=== PATIENT | female | born 1985 | race Caucasian/White ===

== ENCOUNTER 2016-08-30 16:07 | Emergency (ER) | payer MEDICARE, OTHER ==
[~2016-08-30] VITALS: Ht 162.6 cm; Wt 114.0 kg
[~2016-08-30 16:07] MED LIST: BENT20TA PO; CETI10 PO; DIVA500T PO; LAMO100T PO; LEVO50TA4 PO; MELO-1 PO; NAPR500 PO; RISP2TAB2 PO; VENTAER INH
[2016-08-30 16:10] VITALS: BP 118/76; PULSE 91; RESP 16; TEMP 99.6; O2SAT 97
[2016-08-30] MEDS ORDERED: CEPH500T PO (16:27)
--- NOTE | 2016-08-30 16:31 | PD ---
HPI Chief Complaint: Lump, Cyst, Hernia Time Seen by Provider: 16:31 Travel History International Travel<30 days: No Contact w/Intl Traveler<30days: No Traveled to known affect area: No History of Present Illness HPI Patient is a 31-year-old female presenting with left axillary pain and swelling. Present for one week. Worse over the last day. No discharge. No fevers. No other lesions, lymphadenopathy, or nausea or vomiting. No history of MRSA. Patient has a history of MR and the mother who is present states that she shaved her armpits few days before this began. PFSH Past Medical History Hx Anticoagulant Therapy: No Autoimmune Disease: No Anxiety: Yes Depression: No Heart Rhythm Problems: No Cancer: No Cardiovascular Problems: No High Cholesterol: No Chemotherapy: No Cerebrovascular Accident: No Developmental Delay: Yes Diabetes: No Diminished Hearing: No Endocrine: No Genitourinary: No Hypertension: No Immune Disorder: No Implanted Vascular Access Dvce: No Kidney Stones: No Musculoskeletal: No Neurologic: Yes Psychiatric: Yes Reproductive: No Respiratory: No Immunizations Current: No (uto) Radiation Therapy: No Renal Failure: No Seizures: Yes Sickle Cell Disease: No Sleep Apnea: No Thyroid Disease: Yes Tetanus Vaccination: < 5 Years ?: Not LMP: CURRENTLY ON Past Surgical History AICD: No Insulin Pump: No Joint Replacement: No Pacemaker: No Other Surgery: No (see ed history and physical) Social History Alcohol Use: No Tobacco Use: No Substance Use: No Allergies-Medications (Allergen,Severity, Reaction): Coded Allergies: Sulfa (Verified Allergy, Mild, HIVES, 08/30/16) Reported Meds & Prescriptions Reported Meds & Active Scripts Active Cephalexin 500 Mg Tab 500 Mg PO Q6H Naprosyn (Naproxen) 500 Mg Tab 500 Mg PO BID PRN Ventolin Hfa 18 GM Inh (Albuterol Sulfate) 90 Mcg/Act Aer 2 Puff INH Q4-6H PRN Bentyl (Dicyclomine HCl) 20 Mg Tab 20 Mg PO Q8HR PRN Reported Meloxicam 15 Mg Tab 15 Mg PO DAILY Lamotrigine 100 Mg Tab 100 Mg PO DAILY Cetirizine (Cetirizine HCl) 10 Mg Tab 10 Mg PO DAILY Divalproex DR (Divalproex Sodium) 500 Mg Tabdr 750 Mg PO TID Levothyroxine (Levothyroxine Sodium) 50 Mcg Tab 50 Mcg PO DAILY Risperidone 2 Mg Tab 2 Mg PO BID Review of Systems General / Constitutional: No: Fever Gastrointestinal: No: Nausea, Vomiting Skin: Positive Other (see the history of present illness) Hematologic/Lymphatic: No: Lymph Node Enlargement Physical Exam Narrative GENERAL: Well-developed and well-nourished adult female in no acute distress. SKIN: 1.5 cm area of erythema and mild induration that is subcentimeter the left axilla. No pointing, drainage, fluctuance. No streaking. Warm and dry. Good turgor without tenting. HEAD: Normocephalic and atraumatic. EYES: PERRL bilaterally, 5mm. EOMI bilaterally. No injection or icterus present. No proptosis. Lids without edema or erythema. NECK: Supple, no midline tenderness, crepitus or step-offs. Trachea midline, no JVD. CARDIOVASCULAR: Regular rate and rhythm without murmurs, rubs, clicks or gallops. RESPIRATORY: Clear to auscultation bilaterally with symmetrical rise and fall, no distress or use of accessory muscles. LYMPH: Negative bilateral axillary, supraclavicular, cervical and facial lymphadenopathy. MUSCULOSKELETAL: No gait disturbances. Patient freely moving all four extremities spontaneously. Extremities without clubbing, cyanosis, or edema. No obvious deformities. NEUROLOGIC: CN II-XII grossly intact. Awake and alert. Motor grossly within normal limits. Normal speech. PSYCHIATRIC: Appropriate mood and affect; insight and judgment normal. Data Data Last Documented VS Vital Signs Date Time Temp Pulse Resp B/P Pulse Ox O2 Delivery O2 Flow Rate FiO2 08/30/16 16:10 99.6 91 16 118/76 97 MDM Medical Decision Making Medical Screen Exam Complete: Yes Emergency Medical Condition: Yes Differential Diagnosis Folliculitis versus cellulitis versus abscess Narrative Course Patient is a 31-year-old female presenting with history and physical suggestive of a very minimal folliculitis. She is afebrile and nontoxic-appearing. As this is been worsening by history and is tender to palpation prescribe Keflex for this.See discharge paperwork for further instructions. The plan was discussed with the patient who acknowledged their understanding and agreement. Reinforced the follow-up with primary care is critically important. Patient instructed on emergent conditions that should prompt return to ED. Diagnosis Primary Impression: Folliculitis Patient Instructions: Folliculitis (ED), General Instructions Additional Instructions: Keep area clean, dry, and covered with dressing/bandage Apply warm compresses daily to help with drainage Take Tylenol or ibuprofen for pain Take medications as directed Avoid shaving until lesion completely resolved, then use new blade only Follow-up with PCP in 2 days Return to the ED for any acute worsening of symptoms including worsening swelling, spreading redness, fever, chills, nausea and vomiting Med/Other Pt SpecificInfo: Prescription(s) given Scripts Cephalexin 500 Mg Pif302 Mg PO Q6H #40 TAB Prov:Cali Wagner MD 08/30/16 Disposition: 01 DISCHARGE HOME Condition: Stable Deejay Garcia III Aug 30, 2016 16:31
== END 2016-08-30 16:52 | disposition home or self-care (01) ==
LOC: PHEFT 16:07
DX: L73.9 Follicular disorder, unspecified (principal); R22.32 Localized swelling, mass and lump, left upper limb; E07.9 Disorder of thyroid, unspecified; Z86.59 Personal history of other mental and behavioral disorders; Z86.69 Personal history of other diseases of the nervous system and sense organs
CPT/HCPCS: 99283

== ENCOUNTER 2016-11-30 19:28 | Emergency (ER) | payer MEDICARE, OTHER ==
[~2016-11-30 19:28] MED LIST changes: +CEPH500T PO
[2016-11-30 19:45] VITALS: BP 148/82; PULSE 82; RESP 16; TEMP 98.4; O2SAT 97
--- NOTE | 2016-11-30 19:52 | PD ---
HPI Chief Complaint: pelvic pain Time Seen by Provider: 19:44 Travel History International Travel<30 days: No Contact w/Intl Traveler<30days: No History of Present Illness HPI The patient is a 31 year old female who presents to the [facility] emergency department with a history of reportedly having pain in her "private area" that the patient is unable to unfortunately specify how long ago it began. The patient has a history of developmental delay, mental retardation with a reported understanding of the fourth grade level. The patient is brought in by ambulance services. According to ambulance services, the patient saw a commercial stating that she could call 411 for pain which prompted her call to receive help in the emergency department. The patient on arrival is unaccompanied by her mother. The patient reports that her mother is Rodrick. The patient reports that she has problems with bleeding from her "private area" . She reports it happens frequently. She reports that she also has pain frequently in the area. She denies being sexually active. The patient does report having a history of weight gain after taking a white pill which seemed to make the pain worse. The patient denies having any known recent fevers, cough, congestion, neck pain, chest pain, shortness of breath, vomiting, diarrhea, urinary symptoms, or neurologic symptoms. LMP: She is unable to state when her last menstrual cycle began PFSH Past Medical History Narrative Medical The patient's past medical history is significant for anxiety disorder, developmental delay, history of seizure disorder, hypothyroid disorder, prior history of pneumonia, history of intermittent explosive disorder and psychosis. The patient has been admitted on multiple occasions to the psychiatric service. Hx Anticoagulant Therapy: No Autoimmune Disease: No Anxiety: Yes Depression: No Heart Rhythm Problems: No Cancer: No Cardiovascular Problems: No High Cholesterol: No Chemotherapy: No Cerebrovascular Accident: No Developmental Delay: Yes Diabetes: No Diminished Hearing: No Endocrine: No Genitourinary: No Hypertension: No Immune Disorder: No Implanted Vascular Access Dvce: No Kidney Stones: No Musculoskeletal: No Neurologic: Yes Psychiatric: Yes Reproductive: No Respiratory: No Immunizations Current: No (uto) Radiation Therapy: No Renal Failure: No Seizures: Yes Sickle Cell Disease: No Sleep Apnea: No Thyroid Disease: Yes Past Surgical History Narrative Surgical The patient's past surgical history is reportedly none. AICD: No Insulin Pump: No Joint Replacement: No Pacemaker: No Other Surgery: No (see ed history and physical) Social History Alcohol Use: No Tobacco Use: No Substance Use: No Allergies-Medications (Allergen,Severity, Reaction): Coded Allergies: Sulfa (Verified Allergy, Mild, HIVES, 11/30/16) Reported Meds & Prescriptions Reported Meds & Active Scripts Active Cephalexin 500 Mg Tab 500 Mg PO Q6H Naprosyn (Naproxen) 500 Mg Tab 500 Mg PO BID PRN Ventolin Hfa 18 GM Inh (Albuterol Sulfate) 90 Mcg/Act Aer 2 Puff INH Q4-6H PRN Bentyl (Dicyclomine HCl) 20 Mg Tab 20 Mg PO Q8HR PRN Reported Meloxicam 15 Mg Tab 15 Mg PO DAILY Lamotrigine 100 Mg Tab 100 Mg PO DAILY Cetirizine (Cetirizine HCl) 10 Mg Tab 10 Mg PO DAILY Divalproex DR (Divalproex Sodium) 500 Mg Tabdr 750 Mg PO TID Levothyroxine (Levothyroxine Sodium) 50 Mcg Tab 50 Mcg PO DAILY Risperidone 2 Mg Tab 2 Mg PO BID Review of Systems Except as stated in HPI: all other systems reviewed are Neg General / Constitutional: No: Fever Eyes: No: Visual changes HENT: No: Headaches Cardiovascular: No: Chest Pain or Discomfort Respiratory: No: Shortness of Breath Gastrointestinal: Positive: Abdominal Pain, No: Nausea, Vomiting, Diarrhea, Changes in Bowel Habits, Indigestion, Loss of Appetite Genitourinary: Positive: Pelvic Pain, Vaginal Bleeding, No: Dysuria Musculoskeletal: No: Pain Skin: No Rash Neurologic: No: Weakness Psychiatric: No: Depression Endocrine: No: Polydipsia Hematologic/Lymphatic: No: Easy Bruising Physical Exam Narrative General: The patient is a well-developed well-nourished female in no acute distress. Head and Neck exam: Head is normocephalic atraumatic. Eyes: EOMI, pupils are equal round and reactive to light. Nose: Midline septum with pink mucous membranes Mouth: Dentition unremarkable. Moist mucus membranes. Posterior oropharynx is not erythematous. No tonsillar hypertrophy. Uvula midline. Airway patent. Neck: No palpable lymphadenopathy. No nuchal rigidity. No thyromegaly. Cardiovascular: Regular rate and rhythm without murmurs, gallops, or rubs. Lungs: Clear to auscultation bilaterally. No wheezes, rhonchi, or rales. Abdomen: Soft, without tenderness to palpation in all 4 quadrants of the abdomen. No guarding, rebound, or rigidity. No tenderness on palpation of McBurney's point. Normal bowel sounds are audible. Negative [place] sign. Extremities: No clubbing or cyanosis. The patient has trace pedal edema bilateral lower extremities. No calf tenderness on palpation. Back: No spinous process tenderness to palpation. No costovertebral angle tenderness to palpation. Neurologic Exam: Cranial nerves 2-12 were intact on exam. Strength is 5/5 in all 4 extremities. No sensory deficits noted. Skin Exam: No rash noted. Intact skin that is warm and dry. GENITOURINARY: Vaginal vault was very small although blood was noted to be pulling at the vaginal introitus. The patient had difficulty relaxing for the examination and the speculum would not pass through this small opening for full visualization of her cervix. No vaginal lesions or other abnormalities are identified. Data Data Last Documented VS Vital Signs Date Time Temp Pulse Resp B/P Pulse Ox O2 Delivery O2 Flow Rate FiO2 11/30/16 20:04 82 16 97 Room Air 11/30/16 19:45 98.4 148/82 Orders Complete Blood Count With Diff (11/30/16 19:45) Comprehensive Metabolic Panel (11/30/16 19:45) Urinalysis - C+S If Indicated (11/30/16 19:45) Valproic Acid (Depakene) (11/30/16 19:45) Iv Access Insert/Monitor (11/30/16 19:45) Ecg Monitoring (11/30/16 19:45) Oximetry (11/30/16 19:45) Ed Urine Pregnancytest Poc (11/30/16 19:45) Gc And Chlamydia Pcr (11/30/16 19:45) Wet Prep Profile (11/30/16 19:45) Thyroid Stimulating Hormone (11/30/16 19:52) Us Pelvis Comp Machine Burrer/Non-Preg (11/30/16 20:07) Labs Laboratory Tests Test 11/30/16 11/30/16 19:55 20:10 White Blood Count 8.7 TH/MM3 Red Blood Count 4.12 MIL/MM3 Hemoglobin 11.5 GM/DL Hematocrit 35.6 % Mean Corpuscular Volume 86.5 FL Mean Corpuscular Hemoglobin 27.9 PG Mean Corpuscular Hemoglobin 32.3 % Concent Red Cell Distribution Width 16.3 % Platelet Count 258 TH/MM3 Mean Platelet Volume 7.3 FL Neutrophils (%) (Auto) 68.2 % Lymphocytes (%) (Auto) 17.7 % Monocytes (%) (Auto) 12.5 % Eosinophils (%) (Auto) 1.3 % Basophils (%) (Auto) 0.3 % Neutrophils # (Auto) 5.9 TH/MM3 Lymphocytes # (Auto) 1.5 TH/MM3 Monocytes # (Auto) 1.1 TH/MM3 Eosinophils # (Auto) 0.1 TH/MM3 Basophils # (Auto) 0.0 TH/MM3 CBC Comment DIFF FINAL Differential Comment Sodium Level 138 MEQ/L Potassium Level 4.2 MEQ/L Chloride Level 100 MEQ/L Carbon Dioxide Level 27.9 MEQ/L Anion Gap 10 MEQ/L Blood Urea Nitrogen 7 MG/DL Creatinine 0.76 MG/DL Estimat Glomerular Filtration 88 ML/MIN Rate Random Glucose 109 MG/DL Calcium Level 9.1 MG/DL Total Bilirubin 0.1 MG/DL Aspartate Amino Transf 18 U/L (AST/SGOT) Alanine Aminotransferase 26 U/L (ALT/SGPT) Alkaline Phosphatase 82 U/L Total Protein 7.6 GM/DL Albumin 3.6 GM/DL Thyroid Stimulating Hormone 0.584 uIU/ML 3rd Gen Valproic Acid (Depakene) Level 63 MCG/ML Urine Color LIGHT-YELLOW Urine Turbidity CLEAR Urine pH 7.0 Urine Specific [place] 1.003 Urine Protein NEG mg/dL Urine Glucose (UA) NEG mg/dL Urine Ketones NEG mg/dL Urine Occult Blood NEG Urine Nitrite NEG Urine Bilirubin NEG Urine Urobilinogen LESS THAN 2.0 MG/DL Urine Leukocyte Esterase NEG Urine WBC LESS THAN 1 /hpf Microscopic Urinalysis Comment CULT NOT INDICATED MDM Medical Decision Making Medical Screen Exam Complete: Yes Emergency Medical Condition: Yes Medical Record Reviewed: Yes Interpretation(s) Last Impressions Pelvis Ultrasound 11/30/162006 Signed Impressions: Service Date/Time: Wednesday, November 30, 2016 23:32 - CONCLUSION: 1. Unremarkable ultrasound examination of the pelvis. Naif Lozano MD Differential Diagnosis Ovarian cyst, versus fibroids, versus anemia, versus dysfunctional uterine bleeding, versus endocrine disorder such as hypothyroid versus hyperthyroidism Narrative Course During the course of the patients emergency department visit, the patients history, examination, and differential diagnosis were reviewed with the patient. The patient had IV access obtained and blood work sent for analysis. The patient was placed on a monitoring coordinator with oximetry and blood pressure monitoring. The patient was initially provided Toradol 15 mg IV times one. The patients laboratory studies were reviewed and remarkable for a white count of 8.7, hemoglobin 11.5, platelets 258 with 12.5 monocytes, CMP is remarkable for glucose of 109, total bilirubin 0.1, TSH 0.584, urinalysis is unremarkable, valproic acid level is 63. Radiology studies were reviewed and remarkable for an ultrasound of the pelvis that shows no acute abnormality. The patient is instructed regarding the importance of following up with a psychiatric assistant. She is given the name of the psychiatric assistant station supervisor, Dr. Valiente. The patient is resting comfortably and feels better, is alert and in no distress. The patients results and examination findings were discussed with the patient. The repeat examination is unremarkable and benign. The history, exam, diagnostic testing, and current condition do not suggest any significant pathology to warrant further testing, continued ED treatment, admission, or surgical evaluation at this point. The vital signs have been stable. The patient does not have uncontrollable pain, intractable vomiting, or other significant symptoms. The patient's condition is stable and appropriate for discharge. The patient will pursue further outpatient evaluation with a primary care physician or other designated or consulting physician as indicated in the discharge instructions. The patient expressed understanding and was agreeable with this plan. Diagnosis Primary Impression: Dysmenorrhea Referrals: Daisy Valiente MD 1 week Patient Instructions: Dysmenorrhea (ED), General Instructions Med/Other Pt SpecificInfo: No Change to Meds Disposition: 01 DISCHARGE HOME Condition: Stable Vani Lemon MD November 30, 2016 19:52
[2016-11-30 20:04] VITALS: PULSE 82; RESP 16; O2SAT 97
[2016-11-30 20:33] LABS: BLOOD, URINE NEG (NEG); COMMENT (UR) CULT NOT INDICATED; CULTURE IF INDICATED CULT NOT INDICATED; GLUCOSE,URINE NEG (NEG); KETONE, URINE NEG (NEG); NITRITE,URINE NEG (NEG); URINE COLOR LIGHT-YELLOW (YELLW/STRAW)
[2016-11-30 20:43] LABS: AUTOMATED NEUTROPHIL # 5.9 TH/MM3 (1.8-7.7); BASOPHIL % 0.3 % (0.0-2.0); EOSINOPHIL # 0.1 TH/MM3 (0-0.4); EOSINOPHIL % 1.3 % (0.0-4.0); HEMATOCRIT 35.6 % (35.0-46.0); HEMO FLAGS DIFF FINAL; LYMPH % 17.7 % (9.0-44.0); LYMPHOCYTE # 1.5 TH/MM3 (1.0-4.8); MEAN CELL VOLUME 86.5 FL (80.0-100.0); MEAN CORPUSCULAR HEMOGLOBIN 27.9 PG (27.0-34.0); MEAN CORPUSCULAR HGB CONC 32.3 % (32.0-36.0); MONO % 12.5 % (0.0-8.0); NEUT % 68.2 % (16.0-70.0); PLATELET COUNT 258 TH/MM3 (150-450); RED BLOOD COUNT 4.12 MIL/MM3 (4.00-5.30); RED CELL DISTRIBUTION WIDTH 16.3 % (11.6-17.2); WHITE BLOOD COUNT 8.7 TH/MM3 (4.0-11.0)
[2016-11-30 21:11] LABS: ALKALINE PHOSPHATASE 82 U/L (45-117); ALT (GPT) 26 U/L (10-53); ANION GAP 10 MEQ/L (5-15); AST (GOT) 18 U/L (15-37); BICARBONATE 27.9 MEQ/L (21.0-32.0); BLOOD UREA NITROGEN 7 MG/DL (7-18); CHLORIDE 100 MEQ/L (98-107); GLOMERULAR FILTRATION RATE 88 ML/MIN (>89); POTASSIUM 4.2 MEQ/L (3.5-5.1); SODIUM (NA) 138 MEQ/L (136-145); TOTAL BILIRUBIN ADULT 0.1 MG/DL (0.2-1.0)
--- NOTE | 2016-12-01 00:43 | RADRPT ---
EXAM DATE/TIME: 11/30/2016 23:32 [facility] COMPARISON: No previous studies available for comparison. INDICATIONS : Pelvic pain. MEDICAL HISTORY : Thyroid disease. Seizures. Head trauma. Anxiety. Mental retardation. SURGICAL HISTORY : None. ENCOUNTER: Initial ACUITY: 1 day PAIN SCORE: 10 LOCATION: Bilateral pelvis MEASUREMENTS: UTERUS: 8.7 x 4.9 x 3.3 cm ENDOMETRIAL STRIPE: 7 mm RIGHT OVARY: 3.4 x 2.9 x 1.7 cm LEFT OVARY: 3.6 x 3.2 x 2.1 cm FINDINGS: UTERUS: The myometrium has homogeneous echotexture without mass. RIGHT OVARY: Ovary contains no mass or significant cystic lesion. LEFT OVARY: Ovary contains no mass or significant cystic lesion. MISCELLANEOUS: No free fluid. CONCLUSION: 1. Unremarkable ultrasound examination of the pelvis. Naif Lozano MD on December 01, 2016 at 0:41 Board Certified Radiologist. This report was verified electronically.
== END 2016-12-01 02:37 | disposition home or self-care (01) ==
LOC: NEPC 19:28
DX: F79 Unspecified intellectual disabilities (principal); N94.6 Dysmenorrhea, unspecified
CPT/HCPCS: 76856; 80053; 80164; 81001; 84443; 85025

== ENCOUNTER 2017-01-03 10:23 | Emergency (ER) | payer MEDICARE, OTHER ==
[2017-01-03 10:24] VITALS: BP 156/94; PULSE 84; RESP 15; TEMP 98.2; O2SAT 98
--- NOTE | 2017-01-03 10:57 | PD ---
HPI Chief Complaint: Medical Clearance Time Seen by Provider: 10:44 Travel History International Travel<30 days: No Contact w/Intl Traveler<30days: No Traveled to known affect area: No History of Present Illness HPI 31-year-old female came to the emergency room with history of anger outburst after having a verbal argument with her mother. Patient was brought in by the police but was not a Lewis act. Currently she appears to be very calm and flipping through the knitting magazine says she knits. Patient has history of MR and anger outbursts disorder. Her response is in a childlike manner which could be due to her MR. Looking at the past psych history and physical this seems to be her baseline. Vital signs are otherwise stable. She does not appear to be in any distress. [facility] Past Medical History Narrative Medical List of her past medical, surgical, social and family history reviewed from the nursing note. Hx Anticoagulant Therapy: No Arthritis: Yes Autoimmune Disease: No Anxiety: Yes Depression: No Heart Rhythm Problems: No Cancer: No Cardiovascular Problems: No High Cholesterol: No Chemotherapy: No Cerebrovascular Accident: No Developmental Delay: Yes Diabetes: No Diminished Hearing: No Endocrine: No Genitourinary: No Hypertension: No Immune Disorder: No Implanted Vascular Access Dvce: No Kidney Stones: No Musculoskeletal: No Neurologic: Yes Psychiatric: Yes Reproductive: No Respiratory: No Immunizations Current: No (uto) Radiation Therapy: No Renal Failure: No Seizures: Yes Sickle Cell Disease: No Sleep Apnea: No Thyroid Disease: Yes Tetanus Vaccination: Unknown ?: Unknown Past Surgical History AICD: No Insulin Pump: No Joint Replacement: No Pacemaker: No Other Surgery: No (see ed history and physical) Social History Alcohol Use: No Tobacco Use: No Substance Use: No Allergies-Medications (Allergen,Severity, Reaction): Coded Allergies: Sulfa (Verified Allergy, Mild, HIVES, 11/30/16) Comments List of her allergies reviewed from the nursing note. Reported Meds & Prescriptions Reported Meds & Active Scripts Active Cephalexin 500 Mg Tab 500 Mg PO Q6H Naprosyn (Naproxen) 500 Mg Tab 500 Mg PO BID PRN Ventolin Hfa 18 GM Inh (Albuterol Sulfate) 90 Mcg/Act Aer 2 Puff INH Q4-6H PRN Bentyl (Dicyclomine HCl) 20 Mg Tab 20 Mg PO Q8HR PRN Reported Meloxicam 15 Mg Tab 15 Mg PO DAILY Lamotrigine 100 Mg Tab 100 Mg PO DAILY Cetirizine (Cetirizine HCl) 10 Mg Tab 10 Mg PO DAILY Divalproex DR (Divalproex Sodium) 500 Mg Tabdr 750 Mg PO TID Levothyroxine (Levothyroxine Sodium) 50 Mcg Tab 50 Mcg PO DAILY Risperidone 2 Mg Tab 2 Mg PO BID Narrative Medication List of her home medications reviewed from the nursing note. Review of Systems Except as stated in HPI: all other systems reviewed are Neg Physical Exam Narrative GENERAL: Awake, alert, obese, no obvious distress, MR SKIN: Focused skin assessment warm/dry. HEAD: Atraumatic. Normocephalic. EYES: Pupils equal and round. No scleral icterus. No injection or drainage. ENT: No nasal bleeding or discharge. Mucous membranes pink and moist. NECK: Trachea midline. No JVD. CARDIOVASCULAR: Regular rate and rhythm. No murmur appreciated. RESPIRATORY: No accessory muscle use. Clear to auscultation. Breath sounds equal bilaterally. GASTROINTESTINAL: Abdomen soft, non-tender, nondistended. Hepatic and splenic margins not palpable. MUSCULOSKELETAL: No obvious deformities. No clubbing. No cyanosis. No edema. NEUROLOGICAL: Awake and alert. No obvious cranial nerve deficits. Motor grossly within normal limits. Normal speech. MR PSYCHIATRIC: Appropriate mood and affect; poor insight and judgment due to her MR Data Data Last Documented VS Vital Signs Date Time Temp Pulse Resp B/P Pulse Ox O2 Delivery O2 Flow Rate FiO2 01/03/17 14:30 76 14 99 01/03/17 10:24 98.2 156/94 [facility] Medical Decision Making Medical Screen Exam Complete: Yes Emergency Medical Condition: Yes Medical Record Reviewed: Yes Differential Diagnosis Anger outburst, behavioral disorder Narrative Course 11:32 AM patient does not appear to be in any distress. I do not want to do any blood tests at this point. I've asked the nurse to contact her mother and try to see if she can come and pick her up. I'm comfortable discharging her. Procedures EKG Prior to Arrival: No Diagnosis Primary Impression: Outbursts of anger Additional Impression: Mental retardation Referrals: Primary Care Physician Additional Instructions: Please return to the ER if the condition worsens or any other new concerns. Otherwise follow-up with your primary care. Take your medication as he is supposed to. Disposition: 01 DISCHARGE HOME Condition: Stable Halima Valero MD Jan 03, 2017 10:57
== END 2017-01-03 14:30 | disposition home or self-care (01) ==
LOC: NEPC 10:23
DX: R45.4 Irritability and anger (principal); F79 Unspecified intellectual disabilities; F41.9 Anxiety disorder, unspecified
CPT/HCPCS: 99283

== ENCOUNTER 2017-04-26 11:11 | Emergency (ER) | payer OTHER, MEDICAID ==
[~2017-04-26] VITALS: Ht 170.2 cm; Wt 110.0 kg
[2017-04-26 11:13] VITALS: BP 140/93; PULSE 91; RESP 20; TEMP 99.6; O2SAT 95
--- NOTE | 2017-04-26 11:21 | PD ---
Physical Exam Time Seen by Provider: 11:18 Narrative 31-year-old female with history of brain injury and seizures presents with her mother requesting for the patient to be put on psych medications. Mother states she has no threat herself but she has been verbally aggressive towards her. She is also been acting out. The mother is afraid that she is going to leave the home. Patient denies suicidal ideations. Patient seen in triage. Vital signs reviewed. Patient taken to medical bed. Data Data Last Documented VS Vital Signs Date Time Temp Pulse Resp B/P (MAP) Pulse Ox O2 Delivery O2 Flow Rate FiO2 04/26/17 11:13 99.6 91 20 140/93 (109) 95 MDM Supervised Visit with NOBLE: Silvana Valenzuela Apr 26, 2017 11:21
--- NOTE | 2017-04-26 11:39 | PD ---
HPI Chief Complaint: Psychiatric Symptoms Time Seen by Provider: 11:30 Travel History International Travel<30 days: No Contact w/Intl Traveler<30days: No Traveled to known affect area: No History of Present Illness HPI 31-year-old white obese female with a history of brain injury and seizures here with mother with increased agitation. Mother provides history. Patient talks but is unable to answer questions appropriately. Mother states that the patient was previously on Risperdal but was taken off because of excessive menstrual bleeding, rest tenderness, and inappropriate . Last menstrual period was in March. Mother states she has no threat herself but she has been verbally aggressive towards her. Mother states she has had hallucinations. Patient has not complained of fevers, chills, chest pain, shortness of breath, abdominal pain, or muscle pain. Again, it is difficult to elicit history from patient and she apparently is not giving her mother any additional information. Patient denies suicidal ideations. PFSH Past Medical History Hx Anticoagulant Therapy: No Arthritis: Yes Autoimmune Disease: No Anxiety: Yes Depression: No Heart Rhythm Problems: No Cancer: No Cardiovascular Problems: No High Cholesterol: No Chemotherapy: No Cerebrovascular Accident: No Developmental Delay: Yes Diabetes: No Diminished Hearing: No Endocrine: No Genitourinary: No Hypertension: No Immune Disorder: No Implanted Vascular Access Dvce: No Kidney Stones: No Musculoskeletal: No Neurologic: Yes Psychiatric: Yes Reproductive: No Respiratory: No Immunizations Current: No (uto) Radiation Therapy: No Renal Failure: No Seizures: Yes Sickle Cell Disease: No Sleep Apnea: No Thyroid Disease: Yes ?: Unknown LMP: 03-10-17 Past Surgical History AICD: No Insulin Pump: No Joint Replacement: No Pacemaker: No Other Surgery: No (see ed history and physical) Social History Alcohol Use: No Tobacco Use: No Substance Use: No Allergies-Medications (Allergen,Severity, Reaction): Coded Allergies: Sulfa (Sulfonamide Antibiotics) (Unverified Allergy, Mild, HIVES, 03/15/17) Reported Meds & Prescriptions Reported Meds & Active Scripts Active Klonopin (Clonazepam) 1 Mg Tab 1 Mg PO TID Cephalexin 500 Mg Tab 500 Mg PO Q6H Naprosyn (Naproxen) 500 Mg Tab 500 Mg PO BID PRN Ventolin Hfa 18 GM Inh (Albuterol Sulfate) 90 Mcg/Act Aer 2 Puff INH Q4-6H PRN Reported Meloxicam 15 Mg Tab 15 Mg PO DAILY Lamotrigine 100 Mg Tab 100 Mg PO DAILY Cetirizine (Cetirizine HCl) 10 Mg Tab 10 Mg PO DAILY Divalproex DR (Divalproex Sodium) 500 Mg Tabdr 750 Mg PO TID Levothyroxine (Levothyroxine Sodium) 50 Mcg Tab 50 Mcg PO DAILY Risperidone 2 Mg Tab 2 Mg PO BID Review of Systems Except as stated in HPI: all other systems reviewed are Neg (difficult to elicit on patient. rely on mother) Physical Exam Exam Limitations: Poor Historian, Psychotic Narrative GENERAL: Well-nourished obese white female sitting upright on her own SKIN: Focused skin assessment warm/dry. HEAD: Atraumatic. Normocephalic. EYES: No scleral icterus. No injection or drainage. ENT: No nasal bleeding or discharge. NECK: No JVD. CARDIOVASCULAR: Regular rate and rhythm. No murmur appreciated. RESPIRATORY: No accessory muscle use. Clear to auscultation. Breath sounds equal bilaterally. MUSCULOSKELETAL: No obvious deformities. No clubbing. No cyanosis. No edema. NEUROLOGICAL: Awake and alert. No obvious cranial nerve deficits. Motor grossly within normal limits. Normal speech. PSYCHIATRIC: Agitated mood and affect; unable to answer questions directly, tangental and unrelated answers. Data Data Last Documented VS Vital Signs Date Time Temp Pulse Resp B/P (MAP) Pulse Ox O2 Delivery O2 Flow Rate FiO2 04/26/17 14:45 04/26/17 11:13 99.6 91 20 95 Orders Orders Complete Blood Count With Diff (04/26/17 11:37) Comprehensive Metabolic Panel (04/26/17 11:37) Psych Screen (04/26/17 11:37) Labs Laboratory Tests Test 04/26/17 11:45 White Blood Count 6.5 TH/MM3 Red Blood Count 3.96 MIL/MM3 Hemoglobin 12.0 GM/DL Hematocrit 35.9 % Mean Corpuscular Volume 90.7 FL Mean Corpuscular Hemoglobin 30.2 PG Mean Corpuscular Hemoglobin Concent 33.3 % Red Cell Distribution Width 15.1 % Platelet Count 281 TH/MM3 Mean Platelet Volume 7.1 FL Neutrophils (%) (Auto) 58.1 % Lymphocytes (%) (Auto) 28.5 % Monocytes (%) (Auto) 10.6 % Eosinophils (%) (Auto) 2.6 % Basophils (%) (Auto) 0.2 % Neutrophils # (Auto) 3.8 TH/MM3 Lymphocytes # (Auto) 1.9 TH/MM3 Monocytes # (Auto) 0.7 TH/MM3 Eosinophils # (Auto) 0.2 TH/MM3 Basophils # (Auto) 0.0 TH/MM3 CBC Comment DIFF FINAL Differential Comment Blood Urea Nitrogen 12 MG/DL Creatinine 0.74 MG/DL Random Glucose 108 MG/DL Total Protein 7.1 GM/DL Albumin 3.5 GM/DL Calcium Level 8.7 MG/DL Alkaline Phosphatase 74 U/L Aspartate Amino Transf (AST/SGOT) 7 U/L Alanine Aminotransferase (ALT/SGPT) 17 U/L Total Bilirubin 0.1 MG/DL Sodium Level 140 MEQ/L Potassium Level 3.7 MEQ/L Chloride Level 105 MEQ/L Carbon Dioxide Level 26.6 MEQ/L Anion Gap 8 MEQ/L Estimat Glomerular Filtration Rate 90 ML/MIN MDM Medical Decision Making Medical Screen Exam Complete: Yes Emergency Medical Condition: Yes Differential Diagnosis Delirium vs psychotic episode Narrative Course 31-year-old white obese female with a history of brain injury and seizures here with mother with increased agitation. Mother provides history. Mother brought her in to start new medications. Labs and vital signs remained stable. She was evaluated by psych in the ED and discharged to follow up with her PCP. Diagnosis Primary Impression: Intermittent explosive disorder Referrals: Primary Care Physician Psychiatrist Scripts Clonazepam (Klonopin) 1 Mg Tab 1 MG PO TID for Agitation, #90 TAB 0 Refills Prov: Simon Chambers MD 04/26/17 Disposition: 01 DISCHARGE HOME Condition: Serious Jennifer Li Apr 26, 2017 11:39
[2017-04-26 12:05] LABS: AUTOMATED NEUTROPHIL # 3.8 TH/MM3 (1.8-7.7); BASOPHIL % 0.2 % (0.0-2.0); EOSINOPHIL # 0.2 TH/MM3 (0-0.4); EOSINOPHIL % 2.6 % (0.0-4.0); HEMATOCRIT 35.9 % (35.0-46.0); HEMO FLAGS DIFF FINAL; LYMPH % 28.5 % (9.0-44.0); LYMPHOCYTE # 1.9 TH/MM3 (1.0-4.8); MEAN CELL VOLUME 90.7 FL (80.0-100.0); MEAN CORPUSCULAR HEMOGLOBIN 30.2 PG (27.0-34.0); MEAN CORPUSCULAR HGB CONC 33.3 % (32.0-36.0); MONO % 10.6 % (0.0-8.0); NEUT % 58.1 % (16.0-70.0); PLATELET COUNT 281 TH/MM3 (150-450); RED BLOOD COUNT 3.96 MIL/MM3 (4.00-5.30); RED CELL DISTRIBUTION WIDTH 15.1 % (11.6-17.2); WHITE BLOOD COUNT 6.5 TH/MM3 (4.0-11.0)
[2017-04-26 12:31] LABS: ANION GAP 8 MEQ/L (5-15); AST (GOT) 7 U/L (15-37); BICARBONATE 26.6 MEQ/L (21.0-32.0); BLOOD UREA NITROGEN 12 MG/DL (7-18); CHLORIDE 105 MEQ/L (98-107); GLOMERULAR FILTRATION RATE 90 ML/MIN (>89); POTASSIUM 3.7 MEQ/L (3.5-5.1); SODIUM (NA) 140 MEQ/L (136-145)
[2017-04-26 12:34] LABS: ALKALINE PHOSPHATASE 74 U/L (45-117); ALT (GPT) 17 U/L (10-53); TOTAL BILIRUBIN ADULT 0.1 MG/DL (0.2-1.0)
[2017-04-26] MEDS ORDERED: CLON1 PO (13:41)
--- NOTE | 2017-04-26 13:51 | PD ---
Data Data Last Documented VS Vital Signs Date Time Temp Pulse Resp B/P (MAP) Pulse Ox O2 Delivery O2 Flow Rate FiO2 04/26/17 14:45 04/26/17 11:13 99.6 91 20 95 Orders Orders Complete Blood Count With Diff (04/26/17 11:37) Comprehensive Metabolic Panel (04/26/17 11:37) Psych Screen (04/26/17 11:37) Labs Laboratory Tests Test 04/26/17 11:45 White Blood Count 6.5 TH/MM3 Red Blood Count 3.96 MIL/MM3 Hemoglobin 12.0 GM/DL Hematocrit 35.9 % Mean Corpuscular Volume 90.7 FL Mean Corpuscular Hemoglobin 30.2 PG Mean Corpuscular Hemoglobin Concent 33.3 % Red Cell Distribution Width 15.1 % Platelet Count 281 TH/MM3 Mean Platelet Volume 7.1 FL Neutrophils (%) (Auto) 58.1 % Lymphocytes (%) (Auto) 28.5 % Monocytes (%) (Auto) 10.6 % Eosinophils (%) (Auto) 2.6 % Basophils (%) (Auto) 0.2 % Neutrophils # (Auto) 3.8 TH/MM3 Lymphocytes # (Auto) 1.9 TH/MM3 Monocytes # (Auto) 0.7 TH/MM3 Eosinophils # (Auto) 0.2 TH/MM3 Basophils # (Auto) 0.0 TH/MM3 CBC Comment DIFF FINAL Differential Comment Blood Urea Nitrogen 12 MG/DL Creatinine 0.74 MG/DL Random Glucose 108 MG/DL Total Protein 7.1 GM/DL Albumin 3.5 GM/DL Calcium Level 8.7 MG/DL Alkaline Phosphatase 74 U/L Aspartate Amino Transf (AST/SGOT) 7 U/L Alanine Aminotransferase (ALT/SGPT) 17 U/L Total Bilirubin 0.1 MG/DL Sodium Level 140 MEQ/L Potassium Level 3.7 MEQ/L Chloride Level 105 MEQ/L Carbon Dioxide Level 26.6 MEQ/L Anion Gap 8 MEQ/L Estimat Glomerular Filtration Rate 90 ML/MIN [facility] Medical Record Reviewed: Yes Supervised Visit with NOBLE: Yes Narrative Course Please refer to NOBLE note unless otherwise indicated below. CBC & BMP Diagram 04/26/17 11:45 Total Protein 7.1, Albumin 3.5, Calcium Level 8.7, Alkaline Phosphatase 74, Aspartate Amino Transf (AST/SGOT) 7 L, Alanine Aminotransferase (ALT/SGPT) 17, Total Bilirubin 0.1 L Pt awaiting evaluation by Dr Chambers. Diagnosis Primary Impression: Agitation Additional Instruction: You have a choice when it comes to health care, and we are glad that you chose [facility]. Hopefully, we have met your expectations on today's visit. You are welcome to return to [facility] at any time, as we are committed to meeting the health care needs of our community. Med/Other Pt SpecificInfo: No Meds Exist/No RX given Scripts Clonazepam (Klonopin) 1 Mg Tab 1 MG PO TID for Agitation, #90 TAB 0 Refills Prov: Simon Chambers MD 04/26/17 Disposition: 01 DISCHARGE HOME Condition: Stable Aaron Maya MD Apr 26, 2017 13:51
--- NOTE | 2017-04-26 13:57 | PD ---
History of Present Illness Chief Complaint: Psychiatric Symptoms Time Seen by Provider: 13:45 Travel History International Travel<30 Days: No Contact w/Intl Traveler<30days: No Known affected area: No Legal Status Legal Status: Voluntary History of Present Illness: 31-year-old female presents voluntarily with obvious developmental disability and periods of agitation. Patient brought by her mother. Patient recently taken off of Risperdal due to adverse side effects. Patient is a poor historian and talks to this physician about her birthday and this physician's need to provide a gift. Patient is not voicing suicidal or homicidal ideation or psychotic symptoms. However, this physician understands the patient may be intermittently agitated and requires medication management for these episodes. However, inpatient psychiatric hospitalization is not indicated as the patient will not benefit from such hospitalization and needs medication management on an outpatient basis. PFSH Past Medical History Hx Anticoagulant Therapy: No Arthritis: Yes Autoimmune Disease: No Anxiety: Yes Depression: No Heart Rhythm Problems: No Cancer: No Cardiovascular Problems: No High Cholesterol: No Chemotherapy: No Cerebrovascular Accident: No Developmental Delay: Yes Diabetes: No Diminished Hearing: No Endocrine: No Genitourinary: No Hypertension: No Immune Disorder: No Implanted Vascular Access Dvce: No Kidney Stones: No Musculoskeletal: No Neurologic: Yes Psychiatric: Yes Reproductive: No Respiratory: No Immunizations Current: No (uto) Radiation Therapy: No Renal Failure: No Seizures: Yes Sickle Cell Disease: No Sleep Apnea: No Thyroid Disease: Yes ?: Unknown LMP: 8-17 Past Surgical History AICD: No Insulin Pump: No Joint Replacement: No Pacemaker: No Other Surgery: No (see ed history and physical) Psychiatric History Psychiatric History Hx Psychiatric Treatment: Extensive psychiatric tx hx. Per mother, patient is without an outpatient psychiatrist at this time. Per mother, patient has not had any Saphris since February 13. Patient may be controlled with antipsychotic medicines but as discovered with Risperdal, these medicines may have side effects. History of Inpatient Treatment: Yes Guns or firearms in home: No Social History Hx Alcohol Use: No Hx Tobacco Use: No Hx Substance Use: No Substance Use Type: Benzos (Valium,Xanax) Hx of Substance Use Treatment: No Allergies-Medications (Allergen,Severity, Reaction): Coded Allergies: Sulfa (Sulfonamide Antibiotics) (Unverified Allergy, Mild, HIVES, 03/15/17) Reported Meds & Prescriptions Reported Meds & Active Scripts Active Klonopin (Clonazepam) 1 Mg Tab 1 Mg PO TID Cephalexin 500 Mg Tab 500 Mg PO Q6H Naprosyn (Naproxen) 500 Mg Tab 500 Mg PO BID PRN Ventolin Hfa 18 GM Inh (Albuterol Sulfate) 90 Mcg/Act Aer 2 Puff INH Q4-6H PRN Reported Meloxicam 15 Mg Tab 15 Mg PO DAILY Lamotrigine 100 Mg Tab 100 Mg PO DAILY Cetirizine (Cetirizine HCl) 10 Mg Tab 10 Mg PO DAILY Divalproex DR (Divalproex Sodium) 500 Mg Tabdr 750 Mg PO TID Levothyroxine (Levothyroxine Sodium) 50 Mcg Tab 50 Mcg PO DAILY Risperidone 2 Mg Tab 2 Mg PO BID Review of Systems Except as stated in HPI: all other systems reviewed are Neg Exam Alert: Yes [place]: Person Mood: Calm Affect: Other Speech: Clear Eye Contact: Indirect Memory Intact: Immediate Insight/Judgement Impaired but felt to be baseline. MDM Medical Decision Making Medical Record Reviewed: Yes Assessment/Plan Patient seen, medical record reviewed, and case discussed with patient's nurse. Patient has developmental disability and this will not be improved by inpatient psychiatric hospitalization. This physician did prescribe Klonopin 1 mg by mouth 3 times a day when necessary agitation. Nurse asked to relate to mother, patient may be placed on this medicine routinely if necessary but patient may become dependent on it. Due to the fact that patient has anti- seizure medicine now, this medicine will act adjunctively. No suicidal or homicidal ideation, plan or intent. No psychotic symptoms. Patient may be followed on an outpatient basis. Orders Orders Complete Blood Count With Diff (04/26/17 11:37) Comprehensive Metabolic Panel (04/26/17 11:37) Psych Screen (04/26/17 11:37) Results Vital Signs Date Time Temp Pulse Resp B/P (MAP) Pulse Ox O2 Delivery O2 Flow Rate FiO2 04/26/17 11:13 99.6 91 20 140/93 (109) 95 Laboratory Tests Test 04/26/17 11:45 White Blood Count 6.5 Red Blood Count 3.96 Hemoglobin 12.0 Hematocrit 35.9 Mean Corpuscular Volume 90.7 Mean Corpuscular Hemoglobin 30.2 Mean Corpuscular Hemoglobin Concent 33.3 Red Cell Distribution Width 15.1 Platelet Count 281 Mean Platelet Volume 7.1 Neutrophils (%) (Auto) 58.1 Lymphocytes (%) (Auto) 28.5 Monocytes (%) (Auto) 10.6 Eosinophils (%) (Auto) 2.6 Basophils (%) (Auto) 0.2 Neutrophils # (Auto) 3.8 Lymphocytes # (Auto) 1.9 Monocytes # (Auto) 0.7 Eosinophils # (Auto) 0.2 Basophils # (Auto) 0.0 CBC Comment DIFF FINAL Differential Comment Blood Urea Nitrogen 12 Creatinine 0.74 Random Glucose 108 Total Protein 7.1 Albumin 3.5 Calcium Level 8.7 Alkaline Phosphatase 74 Aspartate Amino Transf (AST/SGOT) 7 Alanine Aminotransferase (ALT/SGPT) 17 Total Bilirubin 0.1 Sodium Level 140 Potassium Level 3.7 Chloride Level 105 Carbon Dioxide Level 26.6 Anion Gap 8 Estimat Glomerular Filtration Rate 90 Diagnosis Primary Impression: Intermittent explosive disorder Additional Instructions: You have a choice when it comes to health care, and we are glad that you chose [facility]. Hopefully, we have met your expectations on today's visit. You are welcome to return to [facility] at any time, as we are committed to meeting the health care needs of our community. Prescriptions Clonazepam (Klonopin) 1 Mg Tab 1 MG PO TID for Agitation, #90 TAB 0 Refills Prov: Simon Chambers MD 04/26/17 Disposition: 01 DISCHARGE HOME Condition: Stable Simon Chambers MD Apr 26, 2017 13:57
[2017-05-04] MEDS ORDERED: MAGNESIUM HYDROXIDE SUSP 30 ML CUP PO PRN (20:45)
[2017-05-04] MEDS ORDERED: ACETAMINOPHEN 325 MG TAB PO PRN (20:45)
[2017-05-04] MEDS ORDERED: ALUMINUM/MAGNESIUM/SIMETH 30 ML CUP PO PRN (20:45)
[2017-05-04] MEDS ORDERED: lamoTRIgine 100 MG TAB PO SCH (21:00)
[2017-05-04] MEDS ORDERED: LEVOTHYROXINE SODIUM 50 MCG TAB PO SCH (21:00)
[2017-05-04] MEDS ORDERED: NICOTINE 21 MG/24 HR PATCH T-DERMAL SCH (21:00)
[2017-05-05] MEDS ORDERED: clonazePAM 1 MG TAB PO SCH (09:00)
[2017-05-05] MEDS ORDERED: DIVALPROEX SODIUM DELAYED RELEASE 250 MG TAB PO SCH (09:00)
[2017-05-05] MEDS ORDERED: REMOVE OLD NICODERM (NICOTINE) PATCH T-DERMAL SCH (21:00)
== END 2017-04-26 14:45 | disposition home or self-care (01) ==
LOC: NEPC 11:11
DX: F63.81 Intermittent explosive disorder (principal); R45.1 Restlessness and agitation; E03.9 Hypothyroidism, unspecified
CPT/HCPCS: 80053; 85025; 99283

== ENCOUNTER 2017-05-04 12:50 | Inpatient (IN) | payer OTHER, MEDICARE ==
[~2017-05-04] VITALS: Ht 162.6 cm; Wt 105.0 kg
[~2017-05-04 12:50] MED LIST changes: -BENT20TA PO; +CLON1 PO
[2017-05-04 12:52] VITALS: BP 133/71; PULSE 65; RESP 18; TEMP 98.5; O2SAT 99
--- NOTE | 2017-05-04 13:02 | PD ---
Physical Exam Date Seen by Provider: May 04, 2017 Time Seen by Provider: 13:00 Narrative 32 year old female here for evaluation of psych. Voluntary. Brought by mother. New med not working. Believes patient needs to be admitted for care. No chest pain. Explosive disorder. Takes multiple psych meds. Most of history from mother. No suicidal or homicidal. Vitals stable in triage. Awaiting bed placement. Data Data Last Documented VS Vital Signs Date Time Temp Pulse Resp B/P (MAP) Pulse Ox O2 Delivery O2 Flow Rate FiO2 05/04/17 12:52 98.5 65 18 133/71 (91) 99 Room Air Orders Orders Complete Blood Count With Diff (05/04/17 13:00) Comprehensive Metabolic Panel (05/04/17 13:00) Ed Urine Pregnancytest Poc (05/04/17 13:00) Psych Screen (05/04/17 13:00) Drug Screen, Random Urine (05/04/17 13:00) MDM Medical Record Reviewed: Yes Supervised Visit with NOBLE: Jonatan Roy May 04, 2017 13:02
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
[2017-05-04 14:38] LABS: AUTOMATED NEUTROPHIL # 2.6 TH/MM3 (1.8-7.7); BASOPHIL % 0.3 % (0.0-2.0); EOSINOPHIL # 0.1 TH/MM3 (0-0.4); EOSINOPHIL % 2.1 % (0.0-4.0); HEMATOCRIT 34.8 % (35.0-46.0); HEMO FLAGS DIFF FINAL; LYMPHOCYTE # 1.6 TH/MM3 (1.0-4.8); MEAN CELL VOLUME 91.6 FL (80.0-100.0); MEAN CORPUSCULAR HEMOGLOBIN 29.8 PG (27.0-34.0); MEAN CORPUSCULAR HGB CONC 32.5 % (32.0-36.0); MONO % 13.2 % (0.0-8.0); NEUT % 52.4 % (16.0-70.0); PLATELET COUNT 206 TH/MM3 (150-450); RED CELL DISTRIBUTION WIDTH 15.3 % (11.6-17.2); WHITE BLOOD COUNT 5.1 TH/MM3 (4.0-11.0)
[2017-05-04 15:01] LABS: ALT (GPT) 24 U/L (10-53); ANION GAP 9 MEQ/L (5-15); AST (GOT) 15 U/L (15-37); BICARBONATE 28.3 MEQ/L (21.0-32.0); BLOOD UREA NITROGEN 13 MG/DL (7-18); CHLORIDE 101 MEQ/L (98-107); GLOMERULAR FILTRATION RATE 97 ML/MIN (>89); POTASSIUM 3.8 MEQ/L (3.5-5.1); SODIUM (NA) 138 MEQ/L (136-145)
[2017-05-04 15:03] LABS: ALKALINE PHOSPHATASE 60 U/L (45-117); TOTAL BILIRUBIN ADULT 0.2 MG/DL (0.2-1.0)
[2017-05-04 17:55] VITALS: BP 130/81; TEMP 97.8
[2017-05-04 18:59] VITALS: BP 184/82; PULSE 75; RESP 18; O2SAT 100
[2017-05-04] MEDS ORDERED: MAGNESIUM HYDROXIDE SUSP 30 ML CUP PO PRN (21:30)
[2017-05-04 22:43] VITALS: BP 129/71; PULSE 66; RESP 22; TEMP 97.4; O2SAT 97
[2017-05-05 05:37] VITALS: BP 112/63; PULSE 62; RESP 18; TEMP 97.9
[2017-05-05] MEDS: CETIRIZINE HCL 10 MG TAB PO SCH (09:14)
[2017-05-05] MEDS: MELOXICAM 15 MG TAB PO SCH (09:14)
[2017-05-05] MEDS: lamoTRIgine 100 MG TAB PO SCH (09:14)
[2017-05-05] MEDS: DIVALPROEX SODIUM DELAYED RELEASE 250 MG TAB PO SCH ×3 (09:14→18:43)
--- NOTE | 2017-05-05 11:30 | HHI.HP ---
Provisional Diagnosis Admission Date May 04, 2017 at 21:31 [place]. Intermittent explosive disorder f 63.81 Certification of Person's Competence To Provide Express and Informed Consent I have personally examined Gonsalo Fournier , a person being served at [facility] on, May 05, 2017 10:46. Express and informed consent means consent voluntarily given in writing, by a competent person, after sufficient explanation and disclosure of the subject matter involved to enable the person to make a knowing and willful decision without any element of force, fraud, deceit, duress, or other form of constraint or coercion. This person is 18 years of age or older, is not now known to be incompetent to consent to treatment with a guardian advocate, and does not have a health care surrogate or proxy currently making medical treatment decisions. I have found this person to be one of the following: [] Competent to provide express and informed consent, as defined above, for voluntary admission to this facility and is competent to provide express and informed consent for treatment. He/she has the consistent capacity to make well reasoned, willful, and knowing decisions concerning his or her medical or mental health treatment. The person fully and consistently understands the purpose of the admission for examination/placement and is fully capable of personally exercising all rights assured under [place]xxx] Incompetent to provide express and informed consent to voluntary admission , and this is incompetent to provide express and informed consent to treatment. The person must be transferred to involuntary status and a petition for a guardian advocate filed with the Circuit Court. [] Refusing to provide express and informed consent to voluntary admission but is competent to provide express and informed consent for treatment. The person must be discharged or transferred to involuntary status. Form shall be completed within 24 hours of a person's arrival at the receiving facility and filed in the clinical record of each person: 1. Admitted on a voluntary basis 2. Permitted to provide express and informed consent to his/her own treatment 3. Allowed to transfer from involuntary to voluntary status 4. Prior to permitting a person to consent to his or her own treatment after having been previously found incompetent to consent to treatment. History of Present Illness Capacity: Lacks Capacity Psych Chief Complaint: increasing aggressive behavior at home towards family HPI Patient is a 32-year-old white female well-known post multiple prior contacts. It appears she initially came to voluntarily been brought in by her mother. There is a history of recent medication changes. Patient becoming more labile irritable and aggressive at home the puncture mother fears for her safety. Appears the patient is seen in the ED on 04/26/[address] Simon Chambers who discontinued her Respinol and placed her on when necessary Klonopin leading to the deterioration in her behaviors. It appears patient was allowed to sign voluntary on admission. It is my opinion that this patient does not have the capacity to make decisions concerning her care either her admission to the hospital or medication management. Thus I feel Lewis act is indicated I'll do first opinion petition supporting Lewis act and a second opinion. I will also ask for healthcare surrogate and guardian advocate. Patient was seen in the ED urine toxicology negative. Depakote blood level is now pending. Patient seen in her room with RN. Patient is quite hyperverbal markedly tangential and circumstantial and disorganized. There is a significant childlike attitude with her. She does deny voices though at time she appears to be responding to internal stimuli. She shows no insight or acknowledgment of her behaviors though she said she was getting into arguments with her mother. She denies any alcohol or drug use. She denies suicidality or homicidality. Thus history also of autism with this young lady perhaps some traumatic brain injury. At this time patient does meet criteria for involuntary psychiatric hospitalization under the Lewis act as mentioned above I'll do first opinion request second opinion ask for healthcare surrogate and guardian advocate. We will also the hospitalist consults with his young lady. We will counselor attempt to reach mother to arrange family meeting within the next few days. We' ll continue her schedule medications per the med reconciliation. And discuss with mother possible medication recommendations. Review of Systems ROS Limitations: Clinical Condition, Altered Mental Status Past Psych History Psychological trauma history Patient history treatment brain injury Violence risk - others (6 mos) Patient aggressive at home with mother Violence risk - self (6 mos) Denies Substance Abuse History Drugs/Alcohol past 12 months Denies Past Family Social History Coded Allergies: Sulfa (Sulfonamide Antibiotics) (Verified Allergy, Mild, HIVES, 05/04/17) Past Medical History Medically cleared ED history autism Active Scripts Clonazepam (Klonopin) 1 Mg Tab, 1 MG PO TID for Agitation, #90 TAB 0 Refills Prov:Simon Chambers MD 04/26/17 Reported Medications Meloxicam (Meloxicam) 15 Mg Tab, 15 MG PO DAILY for Arthritis Pain, #30 TAB 0 Refills 06/12/16 Lamotrigine (Lamotrigine) 100 Mg Tab, 100 MG PO DAILY for Control Seizures, #30 TAB 0 Refills 06/12/16 Cetirizine (Cetirizine) 10 Mg Tab, 10 MG PO DAILY for Allergies, TAB 0 Refills 06/12/[address] (Divalproex DR) 500 Mg Tabdr, 750 MG PO TID for Control Seizures, #60 TAB 0 Refills 06/12/16 Levothyroxine (Levothyroxine) 50 Mcg Tab, 50 MCG PO DAILY for Thyroid, #30 TAB 0 Refills 06/12/16 Discontinued Reported Medications Risperidone (Risperidone) 2 Mg Tab, 2 MG PO BID, #30 TAB 0 Refills 06/12/16 Discontinued Scripts Cephalexin (Cephalexin) 500 Mg Tab, 500 MG PO Q6H for Infection, #40 TAB Prov:Cali Wagner MD 08/30/16 Naproxen (Naprosyn) 500 Mg Tab, 500 MG PO BID Y for PAIN SCALE 1 TO 10, #20 TAB Prov:Caesar Reardon MD 06/23/16 Albuterol 18 GM Inh (Ventolin Hfa 18 GM Inh) 90 Mcg/Act Aer, 2 PUFF INH Q4-6H Y for COUGH, #1 INHALER 0 Refills Prov:Hermann Estrada MD 06/12/16 Current Medications Medications (Trade) Dose Ordered Sig/Amari Route Start Time Stop Time Status Last Admin (Milk Of Magnesia Liq) 30 ml DAILY PRN PO 05/04/17 21:30 (ZyrTEC) 10 mg DAILY PO 05/05/17 09:00 05/05/17 09:14 (Depakote Dr) 750 mg TID PO 05/05/17 09:00 05/05/17 09:14 (LaMICtal) 100 mg DAILY PO 05/05/17 09:00 05/05/17 09:14 (Mobic) 15 mg DAILY PO 05/05/17 09:00 05/05/17 09:14 (Benadryl) 50 mg HS PRN PO 05/05/17 10:45 UNV (Tylenol) 650 mg Q4H PRN PO 05/05/17 10:45 UNV (Milk Of Magnesia Liq) 30 ml DAILY PRN PO 05/05/17 10:45 UNV (Mag-Al Plus Susp Liq) 30 ml Q6H PRN PO 05/05/17 10:45 UNV (Atarax) 50 mg Q6H PRN PO 05/05/17 10:45 UNV (Synthroid) 50 mcg DAILY PO 05/06/17 09:00 UNV Family Psych History Unknown at this time Social History Patient lives with mother Patient's Strengths (min. 2) Patient verbal irritable axis health care has supportive mother Physical Exam Patient seen screened in ED exam reviewed and agreed with patient standing in her room in no acute distress, and no respiratory distress, the patient very suggestive but questions concerning pains she verifies pain wherever it is suggested. Patient was all 4 extremities without difficulty is ambulating without difficulty Vital Signs Vital Signs Date Time Temp Pulse Resp B/P (MAP) Pulse Ox O2 Delivery O2 Flow Rate FiO2 05/05/17 05:37 97.9 62 18 112/63 (79) 05/04/17 22:43 97 05/04/17 18:59 Room Air Lab Results Test 05/04/17 14:00 05/04/17 14:15 05/05/17 09:42 White Blood Count 5.1 TH/MM3 Red Blood Count 3.80 MIL/MM3 Hemoglobin 11.3 GM/DL Hematocrit 34.8 % Mean Corpuscular Volume 91.6 FL Mean Corpuscular Hemoglobin 29.8 PG Mean Corpuscular Hemoglobin Concent 32.5 % Red Cell Distribution Width 15.3 % Platelet Count 206 TH/MM3 Mean Platelet Volume 6.9 FL Neutrophils (%) (Auto) 52.4 % Lymphocytes (%) (Auto) 32.0 % Monocytes (%) (Auto) 13.2 % Eosinophils (%) (Auto) 2.1 % Basophils (%) (Auto) 0.3 % Neutrophils # (Auto) 2.6 TH/MM3 Lymphocytes # (Auto) 1.6 TH/MM3 Monocytes # (Auto) 0.7 TH/MM3 Eosinophils # (Auto) 0.1 TH/MM3 Basophils # (Auto) 0.0 TH/MM3 CBC Comment DIFF FINAL Differential Comment Blood Urea Nitrogen 13 MG/DL Creatinine 0.69 MG/DL Random Glucose 81 MG/DL Total Protein 6.9 GM/DL Albumin 3.5 GM/DL Calcium Level 8.8 MG/DL Alkaline Phosphatase 60 U/L Aspartate Amino Transf (AST/SGOT) 15 U/L Alanine Aminotransferase (ALT/SGPT) 24 U/L Total Bilirubin 0.2 MG/DL Sodium Level 138 MEQ/L Potassium Level 3.8 MEQ/L Chloride Level 101 MEQ/L Carbon Dioxide Level 28.3 MEQ/L Anion Gap 9 MEQ/L Estimat Glomerular Filtration Rate 97 ML/MIN Thyroid Stimulating Hormone 3rd Gen 0.535 uIU/ML Urine Opiates Screen NEG Urine Barbiturates Screen NEG Urine Amphetamines Screen NEG Urine Benzodiazepines Screen NEG Urine Cocaine Screen NEG Urine Cannabinoids Screen NEG Mental Status Examination Consciousness: Alert, Confused, Highly distractible Appearance: Appropriate Speech: Pressured, Rapid, Circumstantial, Tangential Orientation: Person, Place ([facility]), Date (2016) Memory: Impaired (describe) (poor) Thought Content: Racing thoughts, Disorganized Thought Associations: Loose associations Language: Perseveration (mild) Fund of Knowledge: Below average Hallucination Type: None (denies) Attention and Concentration: Easily Distracted Suicidal Ideation: No Previous Suicide Attempts: No Homicidal Ideation: No Previous Homicide Attempts: No (denies) Insight: Poor Judgment: Poor Affect: Other (increase range and intensity) Mood: Anxious, Irritable, Manic Motor Activity: Normal gait Assessment & Plan Problem List: (1) INTERMITTENT EXPLOSIVE DISORDER ICD Codes: F63.81 - INTERMITTENT EXPLOSIVE DISORDER Status: Acute Assessment & Plan Estimated LOS: Deejay Zapien MD May 05, 2017 11:07
[2017-05-05] MEDS ORDERED: MAGNESIUM HYDROXIDE SUSP 30 ML CUP PO PRN (12:00)
[2017-05-05] MEDS ORDERED: ALUMINUM/MAGNESIUM/SIMETH 30 ML CUP PO PRN (12:00)
--- NOTE | 2017-05-05 16:38 | PD.CONS ---
HPI Service [facility] Hospitalists Consult Requested By Dr. Louise Reason for Consult Medical management Primary Care Physician Deejay García MD Diagnoses: History of Present Illness 30 y/o female with developmental delay, history of psychosis, seizure disorder and hypothyroidism admitted to the psychiatric unit for exacerbation of explosive disorder. Hospitalist service consulted for medical management. The patient refused to talk to me. Medical records reviewed at length from the EMR. Multiple psychiatric visits. Medical issues such as seizure disorder have been stable. Review of Systems ROS Limitations: Uncooperative Unable to obtain. Patient is uncooperative. Past Family Social History Allergies: Coded Allergies: Sulfa (Sulfonamide Antibiotics) (Verified Allergy, Mild, HIVES, 05/04/17) Past Medical History Per review of EMR as noted in the HPI. Past Surgical History None previously reported. Reported Medications Reported Meds & Active Scripts Active Klonopin (Clonazepam) 1 Mg Tab 1 Mg PO TID Reported Meloxicam 15 Mg Tab 15 Mg PO DAILY Lamotrigine 100 Mg Tab 100 Mg PO DAILY Cetirizine (Cetirizine HCl) 10 Mg Tab 10 Mg PO DAILY Divalproex DR (Divalproex Sodium) 500 Mg Tabdr 750 Mg PO TID Levothyroxine (Levothyroxine Sodium) 50 Mcg Tab 50 Mcg PO DAILY Family History Unable to obtain. Patient is uncooperative. Social History Unable to obtain. Patient is uncooperative. Physical Exam Vital Signs Vital Signs Date Time Temp Pulse Resp B/P (MAP) Pulse Ox O2 Delivery O2 Flow Rate FiO2 05/05/17 05:37 97.9 62 18 112/63 (79) 05/04/17 22:43 97.4 66 22 129/71 (90) 97 05/04/17 22:02 05/04/17 18:59 75 18 184/82 (116) 100 Room Air 05/04/17 17:55 97.8 86 17 130/81 (97) 99 Physical Exam GENERAL: This is a well-nourished, well-developed patient, in no apparent distress. CARDIOVASCULAR: Regular rate and rhythm without murmurs, gallops, or rubs. RESPIRATORY: Clear to auscultation. Breath sounds equal bilaterally. No wheezes , rales, or rhonchi. PSYCH: Childlike behavior. Refused to talk Laboratory Laboratory Tests Test 05/05/17 09:42 Vitamin B12 Level 887 25-Hydroxy Vitamin D Total 30.2 Valproic Acid (Depakene) Level 58 Result Diagram: 05/04/17 1400 05/04/17 1400 Assessment and Plan Assessment and Plan Seizure disorder - Continue Depakote and Lamictal. Development delay Stable and at baseline Hypothyroidism Synthroid 50 g daily has been resumed Medically stable Will sign off. Please call or reconsult as needed. Quintin Fletcher MD May 05, 2017 16:38
[2017-05-05 18:23] VITALS: BP 118/59; PULSE 71; RESP 20; TEMP 98.5; O2SAT 98
[2017-05-05 20:33] VITALS: BP 112/63; PULSE 62; RESP 18; TEMP 97.9; O2SAT 96
[2017-05-06 06:01] VITALS: BP 130/78; PULSE 80; RESP 18; TEMP 97; O2SAT 97
[2017-05-06] MEDS: LEVOTHYROXINE SODIUM 50 MCG TAB PO SCH (06:02)
[2017-05-06] MEDS: ACETAMINOPHEN 325 MG TAB PO PRN (06:11)
[2017-05-06 07:56] LABS: AUTOMATED NEUTROPHIL # 2.2 TH/MM3 (1.8-7.7); BASOPHIL % 0.6 % (0.0-2.0); EOSINOPHIL # 0.1 TH/MM3 (0-0.4); EOSINOPHIL % 2.1 % (0.0-4.0); HEMATOCRIT 34.8 % (35.0-46.0); HEMO FLAGS DIFF FINAL; LYMPH % 35.7 % (9.0-44.0); LYMPHOCYTE # 1.5 TH/MM3 (1.0-4.8); MEAN CELL VOLUME 90.3 FL (80.0-100.0); MEAN CORPUSCULAR HEMOGLOBIN 29.8 PG (27.0-34.0); MONO % 8.4 % (0.0-8.0); NEUT % 53.2 % (16.0-70.0); PLATELET COUNT 221 TH/MM3 (150-450); RED BLOOD COUNT 3.86 MIL/MM3 (4.00-5.30); WHITE BLOOD COUNT 4.1 TH/MM3 (4.0-11.0)
[2017-05-06 08:11] LABS: ANION GAP 8 MEQ/L (5-15); AST (GOT) 15 U/L (15-37); BICARBONATE 28.2 MEQ/L (21.0-32.0); BLOOD UREA NITROGEN 13 MG/DL (7-18); CHLORIDE 105 MEQ/L (98-107); GLOMERULAR FILTRATION RATE 124 ML/MIN (>89); POTASSIUM 3.4 MEQ/L (3.5-5.1); SODIUM (NA) 141 MEQ/L (136-145)
[2017-05-06 08:12] LABS: ALT (GPT) 26 U/L (10-53)
--- NOTE | 2017-05-06 08:16 | PD.PSY.CON ---
Provisional Diagnosis Admission Date May 04, 2017 at 21:31 [place] I. Intermittent explosive disorder f 63.81 History of Present Illness Service Psychiatry Consult Requested By Reason for Consult Second opinion Primary Care Physician Deejay García MD HPI Patient is a 32-year-old white female well-known post multiple prior contacts. It appears she initially came to voluntarily been brought in by her mother. There is a history of recent medication changes. Patient becoming more labile irritable and aggressive at home the puncture mother fears for her safety. Appears the patient is seen in the ED on 04/26/[address] Simon Chambers who discontinued her Respinol and placed her on when necessary Klonopin leading to the deterioration in her behaviors. It appears patient was allowed to sign voluntary on admission. It is my opinion that this patient does not have the capacity to make decisions concerning her care either her admission to the hospital or medication management. Thus I feel Lewis act is indicated I'll do first opinion petition supporting Lewis act and a second opinion. I will also ask for healthcare surrogate and guardian advocate. Patient was seen in the ED urine toxicology negative. Depakote blood level is now pending. Patient seen in her room with RN. Patient is quite hyperverbal markedly tangential and circumstantial and disorganized. There is a significant childlike attitude with her. She does deny voices though at time she appears to be responding to internal stimuli. She shows no insight or acknowledgment of her behaviors though she said she was getting into arguments with her mother. She denies any alcohol or drug use. She denies suicidality or homicidality. Thus history also of autism with this young lady perhaps some traumatic brain injury. At this time patient does meet criteria for involuntary psychiatric hospitalization under the Lewis act as mentioned above I'll do first opinion request second opinion ask for healthcare surrogate and guardian advocate. We will also the hospitalist consults with his young lady. We will counselor attempt to reach mother to arrange family meeting within the next few days. We' ll continue her schedule medications per the med reconciliation. And discuss with mother possible medication recommendations. Patient was seen today for psychiatric evaluation for second opinion. Patient is finding her room, isolated, guarded, suspicious. Patient refused to talk, stating that if I am not going to discharge her she is not going to speak with me. Patient says that she is not suicidal, she denies homicidal ideation, she denies visual and auditory hallucinations. He is visibly upset and irritable, but she reports "good mood" Review of Systems Except as stated in HPI: all other systems reviewed are Neg Past Family Social History Coded Allergies: Sulfa (Sulfonamide Antibiotics) (Verified Allergy, Mild, HIVES, 05/04/17) Active Scripts Clonazepam (Klonopin) 1 Mg Tab, 1 MG PO TID for Agitation, #90 TAB 0 Refills Prov:Simon Chambers MD 04/26/17 Reported Medications Meloxicam (Meloxicam) 15 Mg Tab, 15 MG PO DAILY for Arthritis Pain, #30 TAB 0 Refills 06/12/16 Lamotrigine (Lamotrigine) 100 Mg Tab, 100 MG PO DAILY for Control Seizures, #30 TAB 0 Refills 06/12/16 Cetirizine (Cetirizine) 10 Mg Tab, 10 MG PO DAILY for Allergies, TAB 0 Refills 06/12/[address] (Divalproex DR) 500 Mg Tabdr, 750 MG PO TID for Control Seizures, #60 TAB 0 Refills 06/12/16 Levothyroxine (Levothyroxine) 50 Mcg Tab, 50 MCG PO DAILY for Thyroid, #30 TAB 0 Refills 06/12/16 Discontinued Reported Medications Risperidone (Risperidone) 2 Mg Tab, 2 MG PO BID, #30 TAB 0 Refills 06/12/16 Discontinued Scripts Cephalexin (Cephalexin) 500 Mg Tab, 500 MG PO Q6H for Infection, #40 TAB Prov:Cali Wagner MD 08/30/16 Naproxen (Naprosyn) 500 Mg Tab, 500 MG PO BID Y for PAIN SCALE 1 TO 10, #20 TAB Prov:Caesar Reardon MD 06/23/16 Albuterol 18 GM Inh (Ventolin Hfa 18 GM Inh) 90 Mcg/Act Aer, 2 PUFF INH Q4-6H Y for COUGH, #1 INHALER 0 Refills Prov:Hermann Estrada MD 06/12/16 Current Medications Medications (Trade) Dose Ordered Sig/Amari Route Start Time Stop Time Status Last Admin (Milk Of Magnesia Liq) 30 ml DAILY PRN PO 05/04/17 21:30 (ZyrTEC) 10 mg DAILY PO 05/05/17 09:00 05/05/17 09:14 (Depakote Dr) 750 mg TID PO 05/05/17 09:00 05/05/17 18:43 (LaMICtal) 100 mg DAILY PO 05/05/17 09:00 05/05/17 09:14 (Mobic) 15 mg DAILY PO 05/05/17 09:00 05/05/17 09:14 (Benadryl) 50 mg HS PRN PO 05/05/17 21:00 (Tylenol) 650 mg Q4H PRN PO 05/05/17 12:00 05/06/17 06:11 (Mag-Al Plus Susp Liq) 30 ml Q6H PRN PO 05/05/17 12:00 (Atarax) 50 mg Q6HR PRN PO 05/05/17 12:00 (Synthroid) 50 mcg DAILY@0600 PO 05/06/17 06:00 05/06/17 06:02 Patient's Strengths (min. 2) Patient verbal irritable axis health care has supportive mother Physical Exam Vital Signs Vital Signs Date Time Temp Pulse Resp B/P (MAP) Pulse Ox O2 Delivery O2 Flow Rate FiO2 05/06/17 06:01 97.0 80 18 130/78 (95) 97 05/04/17 18:59 Room Air Lab Results Test 05/05/17 09:42 05/06/17 07:03 Vitamin B12 Level 887 PG/ML 25-Hydroxy Vitamin D Total 30.2 ng/ML Valproic Acid (Depakene) Level 58 MCG/ML White Blood Count 4.1 TH/MM3 Red Blood Count 3.86 MIL/MM3 Hemoglobin 11.5 GM/DL Hematocrit 34.8 % Mean Corpuscular Volume 90.3 FL Mean Corpuscular Hemoglobin 29.8 PG Mean Corpuscular Hemoglobin Concent 33.0 % Red Cell Distribution Width 15.0 % Platelet Count 221 TH/MM3 Mean Platelet Volume 7.1 FL Neutrophils (%) (Auto) 53.2 % Lymphocytes (%) (Auto) 35.7 % Monocytes (%) (Auto) 8.4 % Eosinophils (%) (Auto) 2.1 % Basophils (%) (Auto) 0.6 % Neutrophils # (Auto) 2.2 TH/MM3 Lymphocytes # (Auto) 1.5 TH/MM3 Monocytes # (Auto) 0.3 TH/MM3 Eosinophils # (Auto) 0.1 TH/MM3 Basophils # (Auto) 0.0 TH/MM3 CBC Comment DIFF FINAL Differential Comment Blood Urea Nitrogen 13 MG/DL Creatinine 0.56 MG/DL Random Glucose 70 MG/DL Albumin 3.4 GM/DL Calcium Level 8.8 MG/DL Aspartate Amino Transf (AST/SGOT) 15 U/L Alanine Aminotransferase (ALT/SGPT) 26 U/L Sodium Level 141 MEQ/L Potassium Level 3.4 MEQ/L Chloride Level 105 MEQ/L Carbon Dioxide Level 28.2 MEQ/L Anion Gap 8 MEQ/L Estimat Glomerular Filtration Rate 124 ML/MIN Mental Status Examination Appearance: Appropriate Consciousness: Alert Motor Activity: Normal gait Speech: Unremarkable Language: Adequate Attention and Concentration: Adequate Memory: Unremarkable Mood: Irritable Affect: Irritable Hallucination Type: None (denies) Delusion Type: Paranoid Suicidal Ideation: No Suicidal Plan: No Suicidal Intention: No Homicidal Ideation: No Homicidal Plan: No Homicidal Intention: No Insight: Poor Judgment: Poor Assessment & Plan Problem List: (1) INTERMITTENT EXPLOSIVE DISORDER ICD Codes: F63.81 - INTERMITTENT EXPLOSIVE DISORDER Status: Acute Assessment & Plan: I have seen and examined this patient, reviewed the documentation, I totally agree and concur with Dr. Louise's assessment and plan. Consult appreciated. Assessment & Plan Estimated LOS: Kiko Scott MD May 06, 2017 08:16
[2017-05-06 08:22] LABS: ALKALINE PHOSPHATASE 61 U/L (45-117); FREE T4 0.98 NG/DL (0.76-1.46); TOTAL BILIRUBIN ADULT 0.3 MG/DL (0.2-1.0)
[2017-05-06] MEDS: CETIRIZINE HCL 10 MG TAB PO SCH (09:35)
[2017-05-06] MEDS: DIVALPROEX SODIUM DELAYED RELEASE 250 MG TAB PO SCH ×3 (09:35→18:00)
[2017-05-06] MEDS: lamoTRIgine 100 MG TAB PO SCH (09:35)
[2017-05-06] MEDS: MELOXICAM 15 MG TAB PO SCH (09:35)
--- NOTE | 2017-05-06 14:18 | HHI.PYPN ---
Subjective Remarks Patient seen in her room with nurse Fara. Prior to coming in room I noticed that patient was loudly talking to the wall at the foot of her bed as if having a conversation with someone. When I came in the room patient rolled over onto her abdomen and refuse to talk to me. Feel patient remains quite psychotic at the present time may benefit from an antipsychotic will offer patient Geodon 20 mg twice a day along with permission of health care surrogate/guardian advocate Chief Complaint: increasing aggressive behavior at home towards family Review of Systems Except as stated in HPI: all other systems reviewed are Neg Mental Status Examination Appearance: Appropriate Consciousness: Alert Motor Activity: Normal gait Speech: Unremarkable Language: Adequate Attention and Concentration: Adequate Memory: Unremarkable Mood: Irritable Affect: Irritable Hallucination Type: None (denies) Delusion Type: Paranoid Suicidal Ideation: No Suicidal Plan: No Suicidal Intention: No Homicidal Ideation: No Homicidal Plan: No Homicidal Intention: No Insight: Poor Judgment: Poor Results Labs Test 05/06/17 07:03 White Blood Count 4.1 TH/MM3 Red Blood Count 3.86 MIL/MM3 Hemoglobin 11.5 GM/DL Hematocrit 34.8 % Mean Corpuscular Volume 90.3 FL Mean Corpuscular Hemoglobin 29.8 PG Mean Corpuscular Hemoglobin Concent 33.0 % Red Cell Distribution Width 15.0 % Platelet Count 221 TH/MM3 Mean Platelet Volume 7.1 FL Neutrophils (%) (Auto) 53.2 % Lymphocytes (%) (Auto) 35.7 % Monocytes (%) (Auto) 8.4 % Eosinophils (%) (Auto) 2.1 % Basophils (%) (Auto) 0.6 % Neutrophils # (Auto) 2.2 TH/MM3 Lymphocytes # (Auto) 1.5 TH/MM3 Monocytes # (Auto) 0.3 TH/MM3 Eosinophils # (Auto) 0.1 TH/MM3 Basophils # (Auto) 0.0 TH/MM3 CBC Comment DIFF FINAL Differential Comment Blood Urea Nitrogen 13 MG/DL Creatinine 0.56 MG/DL Random Glucose 70 MG/DL Total Protein 6.6 GM/DL Albumin 3.4 GM/DL Calcium Level 8.8 MG/DL Alkaline Phosphatase 61 U/L Aspartate Amino Transf (AST/SGOT) 15 U/L Alanine Aminotransferase (ALT/SGPT) 26 U/L Total Bilirubin 0.3 MG/DL Sodium Level 141 MEQ/L Potassium Level 3.4 MEQ/L Chloride Level 105 MEQ/L Carbon Dioxide Level 28.2 MEQ/L Anion Gap 8 MEQ/L Estimat Glomerular Filtration Rate 124 ML/MIN Free Thyroxine 0.98 NG/DL Thyroid Stimulating Hormone 3rd Gen 0.711 uIU/ML Vitals/IOs Vital Signs Date Time Temp Pulse Resp B/P (MAP) Pulse Ox O2 Delivery O2 Flow Rate FiO2 05/06/17 06:01 97.0 80 18 130/78 (95) 97 05/04/17 18:59 Room Air Assessment & Plan Problem List: (1) INTERMITTENT EXPLOSIVE DISORDER ICD Codes: F63.81 - INTERMITTENT EXPLOSIVE DISORDER Status: Acute Assessment & Plan Estimated LOS: days patient remains loud intrusive and psychotic. With this moment was laying in bed refuse to speak with me. Will offer Geodon 20 mg twice a day if okay with health care surrogate/guardian advocate Justification for Cont. Inpt. At this time patient will decompensate and placed on a lower level of care Discharge Planning At this time patient behaviors to control to consider return home may need to investigate more restrictive placement Deejay Louise MD May 06, 2017 14:18
[2017-05-06] MEDS: ZIPRASIDONE HCL 20 MG CAP PO SCH (21:00)
[2017-05-06] MEDS: diphenhydrAMINE HCL 50 MG CAP PO PRN (21:41)
[2017-05-07] MEDS: LEVOTHYROXINE SODIUM 50 MCG TAB PO SCH (05:39)
[2017-05-07 06:05] VITALS: BP 108/65; PULSE 78; RESP 18; TEMP 97.6; O2SAT 94
[2017-05-07] MEDS: MELOXICAM 15 MG TAB PO SCH (09:25)
[2017-05-07] MEDS: lamoTRIgine 100 MG TAB PO SCH (09:25)
[2017-05-07] MEDS: ZIPRASIDONE HCL 20 MG CAP PO SCH ×2 (09:25→20:28)
[2017-05-07] MEDS: DIVALPROEX SODIUM DELAYED RELEASE 250 MG TAB PO SCH ×3 (09:25→16:46)
[2017-05-07] MEDS: CETIRIZINE HCL 10 MG TAB PO SCH (09:25)
[2017-05-07] MEDS: hydrOXYzine HCL 50 MG TAB PO PRN ×2 (11:27→11:28)
--- NOTE | 2017-05-07 13:14 | HHI.PYPN ---
Subjective Remarks Pt seen and discussed with staff. She is loud, intrusive with poor impulse control. Speech is pressured and she insists that she is having a baby and Tate is telling her what to do. Self care is poor. Chief Complaint: increasing aggressive behavior at home towards family Mental Status Examination Appearance: Appropriate Consciousness: Alert Motor Activity: Normal gait Speech: Pressured Language: Adequate Attention and Concentration: Adequate Memory: Unremarkable Mood: Irritable Affect: Irritable Hallucination Type: None (denies) Delusion Type: Paranoid Suicidal Ideation: No Suicidal Plan: No Suicidal Intention: No Homicidal Ideation: No Homicidal Plan: No Homicidal Intention: No Insight: Poor Judgment: Poor Results Vitals/IOs Vital Signs Date Time Temp Pulse Resp B/P (MAP) Pulse Ox O2 Delivery O2 Flow Rate FiO2 05/07/17 06:05 97.6 78 18 108/65 (79) 94 05/04/17 18:59 Room Air Assessment & Plan Problem List: (1) INTERMITTENT EXPLOSIVE DISORDER ICD Codes: F63.81 - INTERMITTENT EXPLOSIVE DISORDER Status: Acute Assessment & Plan Continue current tx plan. Estimated LOS: days Justification for Cont. Inpt. impairments in safety Rohini Cervantes MD May 07, 2017 13:13
[2017-05-07] MEDS: diphenhydrAMINE HCL 50 MG CAP PO PRN (20:28)
[2017-05-08 05:35] VITALS: BP 146/65; PULSE 86; RESP 22; TEMP 98.2; O2SAT 97
[2017-05-08] MEDS: LEVOTHYROXINE SODIUM 50 MCG TAB PO SCH (06:00)
[2017-05-08] MEDS: ZIPRASIDONE HCL 20 MG CAP PO SCH ×2 (08:08→20:10)
[2017-05-08] MEDS: lamoTRIgine 100 MG TAB PO SCH (08:08)
[2017-05-08] MEDS: CETIRIZINE HCL 10 MG TAB PO SCH (08:08)
[2017-05-08] MEDS: DIVALPROEX SODIUM DELAYED RELEASE 250 MG TAB PO SCH ×3 (08:09→17:37)
[2017-05-08] MEDS: MELOXICAM 15 MG TAB PO SCH (12:19)
--- NOTE | 2017-05-08 12:37 | HHI.PYPN ---
Subjective Remarks Pt seen and discussed with staff. Pt slept well last night. Today she has been pressured in speech with bizarre intrusive behaviors. She was screaming and yelling while reading the bible. No SI/HI She is compliant with medications. Chief Complaint: increasing aggressive behavior at home towards family Mental Status Examination Appearance: Appropriate Consciousness: Alert Motor Activity: Normal gait Speech: Pressured Language: Adequate Attention and Concentration: Adequate Memory: Unremarkable Mood: Irritable Affect: Irritable Hallucination Type: None (denies) Delusion Type: Paranoid Suicidal Ideation: No Suicidal Plan: No Suicidal Intention: No Homicidal Ideation: No Homicidal Plan: No Homicidal Intention: No Insight: Poor Judgment: Poor Results Vitals/IOs Vital Signs Date Time Temp Pulse Resp B/P (MAP) Pulse Ox O2 Delivery O2 Flow Rate FiO2 05/08/17 05:35 98.2 86 22 146/65 (92) 97 05/04/17 18:59 Room Air Assessment & Plan Problem List: (1) INTERMITTENT EXPLOSIVE DISORDER ICD Codes: F63.81 - INTERMITTENT EXPLOSIVE DISORDER Status: Acute Assessment & Plan Continue current tx plan. Estimated LOS: days Justification for Cont. Inpt. agitation Rohini Cervantes MD May 08, 2017 12:37
[2017-05-08 16:29] VITALS: BP 136/76; PULSE 80; RESP 18; TEMP 96.8; O2SAT 94
[2017-05-08] MEDS: diphenhydrAMINE HCL 50 MG CAP PO PRN (20:10)
[2017-05-09] MEDS: LEVOTHYROXINE SODIUM 50 MCG TAB PO SCH (05:39)
[2017-05-09 05:47] VITALS: BP 112/61; PULSE 87; RESP 18; TEMP 98.3; O2SAT 94
[2017-05-09 06:05] LABS: BLOOD, URINE NEG (NEG); COMMENT (UR) CULT NOT INDICATED; CULTURE IF INDICATED CULT NOT INDICATED; GLUCOSE,URINE NEG (NEG); HYALINE CAST, URINE 1 /lpf (RARE); KETONE, URINE 10 mg/dL (NEG); MUCUS URINE FEW /lpf (OCC); NITRITE,URINE NEG (NEG); URINE COLOR YELLOW (YELLW/STRAW)
[2017-05-09] MEDS: ZIPRASIDONE HCL 20 MG CAP PO SCH ×2 (09:00→20:37)
[2017-05-09] MEDS: CETIRIZINE HCL 10 MG TAB PO SCH (09:00)
[2017-05-09] MEDS: MELOXICAM 15 MG TAB PO SCH (09:00)
[2017-05-09] MEDS: DIVALPROEX SODIUM DELAYED RELEASE 250 MG TAB PO SCH ×3 (09:00→17:28)
[2017-05-09] MEDS: lamoTRIgine 100 MG TAB PO SCH (09:00)
--- NOTE | 2017-05-09 14:39 | HHI.PYPN ---
Subjective Remarks Patient seen in [place] with nurse Diane and medical student morgan, patient continues intrusive hyperverbal perseverative with no insight into her issues. Showing very difficult time with redirection total daily dose of Depakote at this time is 2250mg with last Depakote level drawn on 05/05. Patient has been compliant with the medication. We'll recheck Depakote level in a.m. Chief Complaint: increasing aggressive behavior at home towards family Review of Systems Except as stated in HPI: all other systems reviewed are Neg Mental Status Examination Appearance: Appropriate Consciousness: Alert Motor Activity: Normal gait Speech: Pressured Language: Adequate Attention and Concentration: Adequate Memory: Unremarkable Mood: Irritable Affect: Irritable Hallucination Type: None (denies) Delusion Type: Paranoid Suicidal Ideation: No Suicidal Plan: No Suicidal Intention: No Homicidal Ideation: No Homicidal Plan: No Homicidal Intention: No Insight: Poor Judgment: Poor Results Labs Test 05/09/17 05:45 Urine Color YELLOW Urine Turbidity CLEAR Urine pH 6.0 Urine Specific [place] 1.023 Urine Protein TRACE mg/dL Urine Glucose (UA) NEG mg/dL Urine Ketones 10 mg/dL Urine Occult Blood NEG Urine Nitrite NEG Urine Bilirubin NEG Urine Urobilinogen 2.0 MG/DL Urine Leukocyte Esterase NEG Urine RBC LESS THAN 1 /hpf Urine WBC 1 /hpf Urine Hyaline Casts 1 /lpf Urine Mucus FEW /lpf Microscopic Urinalysis Comment CULT NOT INDICATED Vitals/IOs Vital Signs Date Time Temp Pulse Resp B/P (MAP) Pulse Ox O2 Delivery O2 Flow Rate FiO2 05/09/17 05:47 98.3 87 18 112/61 (85) 94 Assessment & Plan Problem List: (1) INTERMITTENT EXPLOSIVE DISORDER ICD Codes: F63.81 - INTERMITTENT EXPLOSIVE DISORDER Status: Acute Assessment & Plan Estimated LOS: days patient continues intrusive loud perseverative with rapid pressured speech loud voice meeting frequent redirections. Will check Depakote level over in a.m. Justification for Cont. Inpt. This time patient will decompensate if placed in a lower level of care Discharge Planning We need to discuss with mother the patient should return home or replaced and some type of a care home Deejay Louise MD May 09, 2017 14:39
[2017-05-09 15:30] VITALS: BP 110/71; PULSE 82; RESP 18; TEMP 98.1; O2SAT 98
[2017-05-09] MEDS: diphenhydrAMINE HCL 50 MG CAP PO PRN (20:37)
[2017-05-09] MEDS: ACETAMINOPHEN 325 MG TAB PO PRN (20:37)
[2017-05-10 05:52] VITALS: BP 134/63; PULSE 82; RESP 18; TEMP 97.9; O2SAT 99
[2017-05-10 05:53] VITALS: BP 134/63; PULSE 82; RESP 18; TEMP 97.9; O2SAT 99
[2017-05-10] MEDS: LEVOTHYROXINE SODIUM 50 MCG TAB PO SCH (06:19)
[2017-05-10] MEDS: ZIPRASIDONE HCL 20 MG CAP PO SCH ×2 (08:43→20:42)
[2017-05-10] MEDS: DIVALPROEX SODIUM DELAYED RELEASE 250 MG TAB PO SCH ×3 (08:43→17:32)
[2017-05-10] MEDS: lamoTRIgine 100 MG TAB PO SCH (08:43)
[2017-05-10] MEDS: MELOXICAM 15 MG TAB PO SCH (08:44)
[2017-05-10] MEDS: CETIRIZINE HCL 10 MG TAB PO SCH (08:45)
[2017-05-10] MEDS: ACETAMINOPHEN 325 MG TAB PO PRN ×2 (11:53→20:41)
[2017-05-10] MEDS: hydrOXYzine HCL 50 MG TAB PO PRN ×2 (11:53→22:16)
--- NOTE | 2017-05-10 12:53 | HHI.PYPN ---
Subjective Remarks Patient seen in dayroom with nurse Valentin, medical school student mane, chart review, patient compliant medications. She continues intrusive with markedly disorganized rapid pressured perseverative speech. We have made arrangements made with patient's mother tomorrow morning to discuss placement issues for now continue treatment Chief Complaint: increasing aggressive behavior at home towards family Review of Systems Except as stated in HPI: all other systems reviewed are Neg Mental Status Examination Appearance: Appropriate Consciousness: Alert Motor Activity: Normal gait Speech: Pressured Language: Adequate Attention and Concentration: Adequate Memory: Unremarkable Mood: Irritable Affect: Irritable Hallucination Type: None (denies) Delusion Type: Paranoid Suicidal Ideation: No Suicidal Plan: No Suicidal Intention: No Homicidal Ideation: No Homicidal Plan: No Homicidal Intention: No Insight: Poor Judgment: Poor Results Labs Test 05/10/17 08:50 Valproic Acid (Depakene) Level 119 MCG/ML Vitals/IOs Vital Signs Date Time Temp Pulse Resp B/P (MAP) Pulse Ox O2 Delivery O2 Flow Rate FiO2 05/10/17 05:53 97.9 82 18 134/63 (86) 99 Assessment & Plan Problem List: (1) INTERMITTENT EXPLOSIVE DISORDER ICD Codes: F63.81 - INTERMITTENT EXPLOSIVE DISORDER Status: Acute Assessment & Plan Estimated LOS: days patient continues psychotic and delusional. Compliant medications. We'll meet with mother tomorrow morning Justification for Cont. Inpt. At this time patient will decompensate and placed in the lower level of care Discharge Planning Consider placement back with mother. Will discuss this with her tomorrow Deejay Louise MD May 10, 2017 12:53
[2017-05-10] MEDS: diphenhydrAMINE HCL 50 MG CAP PO PRN (20:42)
[2017-05-11] MEDS: LEVOTHYROXINE SODIUM 50 MCG TAB PO SCH (05:29)
[2017-05-11 06:04] VITALS: BP 133/66; PULSE 84; RESP 16; TEMP 97.9; O2SAT 98
[2017-05-11] MEDS: ZIPRASIDONE HCL 20 MG CAP PO SCH (08:55)
[2017-05-11] MEDS: MELOXICAM 15 MG TAB PO SCH (08:55)
[2017-05-11] MEDS: DIVALPROEX SODIUM DELAYED RELEASE 250 MG TAB PO SCH ×2 (08:55→13:24)
[2017-05-11] MEDS: CETIRIZINE HCL 10 MG TAB PO SCH (08:55)
[2017-05-11] MEDS: lamoTRIgine 100 MG TAB PO SCH (08:55)
[2017-05-11] MEDS ORDERED: ZIPR20 PO (12:06)
[2017-05-11] MEDS ORDERED: MELO-1 PO (12:06)
[2017-05-11] MEDS ORDERED: CETI10 PO (12:06)
[2017-05-11] MEDS ORDERED: LEVO.05 PO (12:06)
[2017-05-11] MEDS ORDERED: DIVA250T PO (12:06)
[2017-05-11] MEDS ORDERED: LAMO100 PO (12:06)
--- NOTE | 2017-05-11 12:11 | HHI.DS ---
Psychiatry Discharge Summary Inpatient Psychiatric care?: Yes Advance Directive: No Reason Not Provided: doesnt have Mental Health AdvanceDirective: No Health Care Proxy: No Admission Admission Date May 04, 2017 at 21:31 Admission Diagnosis: (1) INTERMITTENT EXPLOSIVE DISORDER ICD Code: F63.81 - INTERMITTENT EXPLOSIVE DISORDER Brief History Patient is a 32-year-old white female well-known post multiple prior contacts. It appears she initially came to voluntarily been brought in by her mother. There is a history of recent medication changes. Patient becoming more labile irritable and aggressive at home the puncture mother fears for her safety. Appears the patient is seen in the ED on 04/26/[address] Simon Chambers who discontinued her Respinol and placed her on when necessary Klonopin leading to the deterioration in her behaviors. It appears patient was allowed to sign voluntary on admission. It is my opinion that this patient does not have the capacity to make decisions concerning her care either her admission to the hospital or medication management. Thus I feel Lewis act is indicated I'll do first opinion petition supporting Lewis act and a second opinion. I will also ask for healthcare surrogate and guardian advocate. Patient was seen in the ED urine toxicology negative. Depakote blood level is now pending. Patient seen in her room with RN. Patient is quite hyperverbal markedly tangential and circumstantial and disorganized. There is a significant childlike attitude with her. She does deny voices though at time she appears to be responding to internal stimuli. She shows no insight or acknowledgment of her behaviors though she said she was getting into arguments with her mother. She denies any alcohol or drug use. She denies suicidality or homicidality. Thus history also of autism with this young lady perhaps some traumatic brain injury. At this time patient does meet criteria for involuntary psychiatric hospitalization under the Lewis act as mentioned above I'll do first opinion request second opinion ask for healthcare surrogate and guardian advocate. We will also the hospitalist consults with his young lady. We will counselor attempt to reach mother to arrange family meeting within the next few days. We' ll continue her schedule medications per the med reconciliation. And discuss with mother possible medication recommendations. Patient was seen today for psychiatric evaluation for second opinion. Patient is finding her room, isolated, guarded, suspicious. Patient refused to talk, stating that if I am not going to discharge her she is not going to speak with me. Patient says that she is not suicidal, she denies homicidal ideation, she denies visual and auditory hallucinations. He is visibly upset and irritable, but she reports "good mood Tobacco Use In Past 30 Days: No Tobacco Past 30 Days Alcohol Use: Never Hospital Course Patient showed compliant with medication from admission. Her intrusiveness perseverative Ms. and intellectual deficits were consistent throughout the hospitalization, though the intensity and frequency behaviors markedly diminished. We did meet with patient's mother and patient's caregiver today they feel patient is doing better. And willing to have her come home today. There is insight into the fragility of this woman's behavior. Need for appropriate monitoring of the community. They've been getting patient's psychotropic medications flow by the neurologist recently. We will refer patient to mental health coverage in the community also Results Blood Pressure 133 / 66 Vital Signs Date Time Temp Pulse Resp B/P (MAP) Pulse Ox O2 Delivery O2 Flow Rate FiO2 05/11/17 06:04 97.9 84 16 133/66 (88) 98 Laboratory Tests Test 05/09/17 05:45 05/10/17 08:50 Urine Ketones 10 mg/dL (NEG) Urine Mucus FEW /lpf (OCC) Valproic Acid (Depakene) Level 119 MCG/ML (50-100) Laboratory Results Test 05/10/17 08:50 Valproic Acid (Depakene) Level 119 MCG/ML (50-100) Summary of Procedures None done Pending results at discharge: No Medications # of Antipsychotic meds at D/C: 1 Approp Antipsych med options 1 - Minimum of three failed multiple trials of monotherapy. 2 - Documented plan to taper to monotherapy due to previous use of multiple meds OR cross-taper in progress at D/C. 3 - Documentation of augmentation of Clozapine. 4 - Justification other than those listed in allowable values 1-3, document here : Discharge Discharge Date: May 11, 2017 Discharge Diagnosis: (1) INTERMITTENT EXPLOSIVE DISORDER Diagnosis: Principal ICD Code: F63.81 - INTERMITTENT EXPLOSIVE DISORDER Status: Acute Pt Condition on Discharge: Stable Discharge Disposition: Discharge Home Discharge Instructions Diet Instructions: As Tolerated, No Restrictions Activities you can perform: Regular-No Restrictions Scheduled Appointment: [facility] Appointment Date: May 13, 2017 Appointment Time: 10:00AM Discharge Time > 30 minutes Mental Status Examination Appearance: Appropriate Consciousness: Alert Motor Activity: Normal gait Speech: Pressured Language: Adequate Attention and Concentration: Adequate Memory: Unremarkable Mood: Irritable Affect: Irritable Hallucination Type: None (denies) Delusion Type: Paranoid Suicidal Ideation: No Suicidal Plan: No Suicidal Intention: No Homicidal Ideation: No Homicidal Plan: No Homicidal Intention: No Insight: Poor Judgment: Poor Discharge/Advance Care Plan Health Problems: (1) INTERMITTENT EXPLOSIVE DISORDER Goals to promote your health * To prevent worsening of your condition and complications * To maintain your health at the optimal level Directions to meet your goals Take your medications as prescribed Follow your dietary instruction Follow activity as directed Keep your appointments as scheduled Take your immunizations and boosters as scheduled If your symptoms worsen call your PCP, if no PCP go to Urgent Care Center or Emergency Room For / questions related to your inpatient stay or results of tests pending at discharge, please contact Dr. Deejay Louise at Smoking is Dangerous to Your Health. Avoid second hand smoking Deejay Louise MD May 11, 2017 12:11
== END 2017-05-11 14:05 | disposition home or self-care (01) | DRG 883 ==
LOC: NEPD 12:50 → NEDA 21:31 → H260 22:18 → H270 05-07 09:40
PROVIDERS: ADMIT Psychiatry & Neurology Psychiatry; ATTEND Psychiatry & Neurology Psychiatry
DX: F63.81 Intermittent explosive disorder (principal); G40.909 Epilepsy, unspecified, not intractable, without status epilepticus; F84.0 Autistic disorder; R62.50 Unspecified lack of expected normal physiological development in childhood; M19.90 Unspecified osteoarthritis, unspecified site; D64.9 Anemia, unspecified; E03.9 Hypothyroidism, unspecified
CPT/HCPCS: 80053; 80164; 80307; 81001; 82306; 82607; 84439; 84443; 84703; 85025; Q0163

== ENCOUNTER 2017-05-17 12:32 | Emergency (ER) | payer OTHER, MEDICAID ==
[~2017-05-17] VITALS: Ht 162.6 cm; Wt 110.0 kg
[~2017-05-17 12:32] MED LIST changes: -CEPH500T PO; +DIVA250T PO; -DIVA500T PO; +LAMO100 PO; -LAMO100T PO; +LEVO.05 PO; -LEVO50TA4 PO; -NAPR500 PO; -RISP2TAB2 PO; -VENTAER INH; +ZIPR20 PO
[2017-05-17 12:34] VITALS: BP 123/75; PULSE 81; RESP 18; TEMP 99; O2SAT 96
--- NOTE | 2017-05-17 16:48 | RADRPT ---
EXAM DATE/TIME: 05/17/2017 17:19 [facility] COMPARISON: No previous studies available for comparison. INDICATIONS : Pain in left knee, possible fall. MEDICAL HISTORY : None. SURGICAL HISTORY : None. ENCOUNTER: Initial ACUITY: 1 day PAIN SCORE: 0/10 LOCATION: Left knee FINDINGS: Two view examination of the left knee demonstrates no evidence of fracture or dislocation. Bony mine ralization is normal. The suprapatellar soft tissues have a normal configuration. CONCLUSION: Unremarkable limited examination of the left knee. He Ibanez Jr., MD on May 17, 2017 at 16:46 Board Certified Radiologist. This report was verified electronically.
--- NOTE | 2017-05-17 16:50 | RADRPT ---
EXAM DATE/TIME: 05/17/2017 17:24 [facility] COMPARISON: No previous studies available for comparison. INDICATIONS : Left ankle pain form possible fall. MEDICAL HISTORY : None. SURGICAL HISTORY : None. ENCOUNTER: Initial ACUITY: 1 day PAIN SCORE: 0/10 LOCATION: Left ankle FINDINGS: Two view exam was performed of the left ankle. The bony structures are in normal alignment. No evid ence of fracture, dislocation, or soft tissue swelling. No radiopaque foreign bodies are seen. Bony mineralization is normal. CONCLUSION: Unremarkable limited examination of the left ankle. He Ibanez Jr., MD on May 17, 2017 at 16:47 Board Certified Radiologist. This report was verified electronically.
--- NOTE | 2017-05-17 17:09 | PD ---
HPI Chief Complaint: Psychiatric Symptoms Time Seen by Provider: 16:03 Travel History International Travel<30 days: No Contact w/Intl Traveler<30days: No Traveled to known affect area: No History of Present Illness HPI 32-year-old female presents to emergency department with her mother stating that she has had increased outbursts and hostility towards family since Tuesday. States compliance with her new medication Geodon prescribed 05/11/2017. States that she is having auditory and visual hallucinations since Tuesday which is not normal for her. Denies alcohol or aspirin use. Mother stated patient fell prior to discharge May 11 but did not address this at that visit. Patient receives 500-1000mg Tylenol occasionally for pain in her left knee and ankle by her mother. Denies trauma to the head, loss of consciousness, or headache. Pt states she has mild pain left ankle and left knee but able to walk normally. Denies fever, chills, chest pain, shortness of breath, back pain, dysuria. Denies suicidal ideations, denies homicidal ideation. PFSH Past Medical History Hx Anticoagulant Therapy: No Arthritis: Yes Autoimmune Disease: No Anxiety: Yes Depression: No Heart Rhythm Problems: No Cancer: No Cardiovascular Problems: No High Cholesterol: No Chemotherapy: No Cerebrovascular Accident: No Developmental Delay: Yes Diabetes: No Diminished Hearing: No Endocrine: No Genitourinary: No Hypertension: No Immune Disorder: No Implanted Vascular Access Dvce: No Kidney Stones: No Musculoskeletal: No Neurologic: Yes Psychiatric: Yes Reproductive: No Respiratory: No Immunizations Current: No (uto) Radiation Therapy: No Renal Failure: No Seizures: Yes Sickle Cell Disease: No Sleep Apnea: No Thyroid Disease: Yes Tetanus Vaccination: < 5 Years Influenza Vaccination: Yes ?: Not Past Surgical History AICD: No Insulin Pump: No Joint Replacement: No Pacemaker: No Social History Alcohol Use: No Tobacco Use: No Substance Use: No Allergies-Medications (Allergen,Severity, Reaction): Coded Allergies: Sulfa (Sulfonamide Antibiotics) (Verified Allergy, Intermediate, HIVES, ) Reported Meds & Prescriptions Reported Meds & Active Scripts Active Geodon (Ziprasidone) 20 Mg Cap 20 Mg PO BID Meloxicam 15 Mg Tab 15 Mg PO DAILY Synthroid (Levothyroxine Sodium) 50 Mcg Tab 50 Mcg PO DAILY@0600 Lamictal (Lamotrigine) 100 Mg Tab 100 Mg PO DAILY Divalproex DR (Divalproex Sodium) 250 Mg Tabdr 750 Mg PO TID 30 Days Cetirizine (Cetirizine HCl) 10 Mg Tab 10 Mg PO DAILY Review of Systems Except as stated in HPI: all other systems reviewed are Neg Physical Exam Narrative GENERAL: Well-nourished, well-developed in no apparent distress, ambulated to her bed SKIN: Focused skin assessment warm/dry. HEAD: Normocephalic. Atraumatic EYES: No scleral icterus. No injection or drainage. NECK: Supple, trachea midline. No JVD or lymphadenopathy. CARDIOVASCULAR: Regular rate and rhythm without murmurs, gallops, or rubs. RESPIRATORY: Breath sounds equal bilaterally. No accessory muscle use. GASTROINTESTINAL: Abdomen soft, non-tender, nondistended. MUSCULOSKELETAL: Left knee: Stable. No edema or ecchymosis over knee. Negative varus valgus, negative posterior anterior drawer, full range of motion. Neurovascular intact. Ecchymosis over the left anterior [place] and healing stage. Left ankle: Stable. Mild edema, dependent ecchymosis medial aspect of ankle. Full range of motion without crepitus or pain. BACK: Nontender without obvious deformity. No CVA tenderness. PSYCHIATRIC: Nonsensical sentences, denies suicidal or homicidal ideations. Data Data Last Documented VS Vital Signs Date Time Temp Pulse Resp B/P (MAP) Pulse Ox O2 Delivery O2 Flow Rate FiO2 05/17/17 19:50 78 16 121/76 (91) 99 Room Air 05/17/17 12:34 99.0 Orders Orders Knee, Ltd (1 Or 2vws) (05/17/17 ) Ankle, Limited (Ap&Lat) (05/17/17 ) Complete Blood Count With Diff (05/17/17 16:36) Comprehensive Metabolic Panel (05/17/17 16:36) Urinalysis - C+S If Indicated (05/17/17 16:36) Psych Screen (05/17/17 16:36) Drug Screen, Random Urine (05/17/17 16:36) Ammonia (05/17/17 17:03) Valproic Acid (Depakene) (05/17/17 17:28) Diet Regular Basic (05/17/17 Dinner) Divalproex (Depakote Dr) (05/17/17 20:30) Divalproex (Luigi Ghosh) (05/17/17 20:30) Lamotrigine (Lamictal) (05/17/17 20:30) Meloxicam (Mobic) (05/17/17 20:30) Ziprasidone Hydrochloride (Geodon) (05/17/17 20:30) Ed Discharge Order (05/17/17 22:57) Labs Laboratory Tests Test 05/17/17 16:45 05/17/17 17:20 White Blood Count 7.9 TH/MM3 Red Blood Count 3.72 MIL/MM3 Hemoglobin 11.1 GM/DL Hematocrit 33.6 % Mean Corpuscular Volume 90.3 FL Mean Corpuscular Hemoglobin 29.7 PG Mean Corpuscular Hemoglobin Concent 32.9 % Red Cell Distribution Width 16.0 % Platelet Count 257 TH/MM3 Mean Platelet Volume 6.5 FL Neutrophils (%) (Auto) 60.4 % Lymphocytes (%) (Auto) 26.6 % Monocytes (%) (Auto) 11.3 % Eosinophils (%) (Auto) 1.4 % Basophils (%) (Auto) 0.3 % Neutrophils # (Auto) 4.8 TH/MM3 Lymphocytes # (Auto) 2.1 TH/MM3 Monocytes # (Auto) 0.9 TH/MM3 Eosinophils # (Auto) 0.1 TH/MM3 Basophils # (Auto) 0.0 TH/MM3 CBC Comment DIFF FINAL Differential Comment Urine Color YELLOW Urine Turbidity CLEAR Urine pH 6.5 Urine Specific [place] 1.019 Urine Protein NEG mg/dL Urine Glucose (UA) NEG mg/dL Urine Ketones TRACE mg/dL Urine Occult Blood TRACE Urine Nitrite NEG Urine Bilirubin NEG Urine Urobilinogen LESS THAN 2.0 MG/DL Urine Leukocyte Esterase NEG Urine RBC 1 /hpf Urine WBC 2 /hpf Urine Squamous Epithelial Cells 1 /hpf Microscopic Urinalysis Comment CULT NOT INDICATED Blood Urea Nitrogen 13 MG/DL Creatinine 0.51 MG/DL Random Glucose 87 MG/DL Total Protein 6.5 GM/DL Albumin 3.3 GM/DL Calcium Level 9.0 MG/DL Alkaline Phosphatase 56 U/L Aspartate Amino Transf (AST/SGOT) 5 U/L Alanine Aminotransferase (ALT/SGPT) 18 U/L Total Bilirubin 0.2 MG/DL Sodium Level 137 MEQ/L Potassium Level 3.6 MEQ/L Chloride Level 103 MEQ/L Carbon Dioxide Level 26.6 MEQ/L Anion Gap 7 MEQ/L Estimat Glomerular Filtration Rate 138 ML/MIN Urine Opiates Screen NEG Urine Barbiturates Screen NEG Valproic Acid (Depakene) Level 77 MCG/ML Urine Amphetamines Screen NEG Urine Benzodiazepines Screen NEG Urine Cocaine Screen NEG Urine Cannabinoids Screen NEG Ammonia 20 MCMOL/L MDM Medical Decision Making Medical Screen Exam Complete: Yes Emergency Medical Condition: Yes Differential Diagnosis Left knee contusion versus fracture versus sprain Left ankle contusion versus fracture versus sprain Narrative Course 32-year-old female presents to the emergency department with her mother complaining of increased agitation and hostility and at family members since Tuesday. States that at the last visit she was placed on Geodon 20 mg twice a day and was doing well until Tuesday. Mother does not know why she had a change in status. Patient complaining of both auditory and visual hallucinations. Denies any other change in lifestyle. Of note, mother states patient fell at discharge however did not follow up. X- rays revealed no acute process. Patient able to ambulate without abnormal gait or obvious pain. Labs demonstrated mild anemia. Depakote therapeutic level. Labs stable. Mental health screening discussed with the patient and mother. Psychiatric screen ordered. Diagnosis Primary Impression: Contusion of left knee Qualified Codes: S80.02XA - Contusion of left knee, initial encounter Additional Impressions: Contusion of left ankle Qualified Codes: S90.02XA - Contusion of left ankle, initial encounter Intermittent explosive disorder Condition: Stable Jennifer Li May 17, 2017 17:09
[2017-05-17 17:17] LABS: BLOOD, URINE TRACE (NEG); COMMENT (UR) CULT NOT INDICATED; CULTURE IF INDICATED CULT NOT INDICATED; GLUCOSE,URINE NEG (NEG); KETONE, URINE TRACE mg/dL (NEG); NITRITE,URINE NEG (NEG); PH, URINE 6.5 (5.0-8.5); SQUAMOUS EPITHELIAL CELL URINE 1 /hpf (0-5); URINE COLOR YELLOW (YELLW/STRAW)
[2017-05-17 17:18] LABS: AUTOMATED NEUTROPHIL # 4.8 TH/MM3 (1.8-7.7); BASOPHIL % 0.3 % (0.0-2.0); EOSINOPHIL # 0.1 TH/MM3 (0-0.4); EOSINOPHIL % 1.4 % (0.0-4.0); HEMATOCRIT 33.6 % (35.0-46.0); HEMO FLAGS DIFF FINAL; LYMPH % 26.6 % (9.0-44.0); LYMPHOCYTE # 2.1 TH/MM3 (1.0-4.8); MEAN CELL VOLUME 90.3 FL (80.0-100.0); MEAN CORPUSCULAR HEMOGLOBIN 29.7 PG (27.0-34.0); MEAN CORPUSCULAR HGB CONC 32.9 % (32.0-36.0); MONO % 11.3 % (0.0-8.0); NEUT % 60.4 % (16.0-70.0); PLATELET COUNT 257 TH/MM3 (150-450); RED BLOOD COUNT 3.72 MIL/MM3 (4.00-5.30); WHITE BLOOD COUNT 7.9 TH/MM3 (4.0-11.0)
[2017-05-17 17:35] LABS: ANION GAP 7 MEQ/L (5-15); BICARBONATE 26.6 MEQ/L (21.0-32.0); BLOOD UREA NITROGEN 13 MG/DL (7-18); CHLORIDE 103 MEQ/L (98-107); GLOMERULAR FILTRATION RATE 138 ML/MIN (>89); POTASSIUM 3.6 MEQ/L (3.5-5.1); SODIUM (NA) 137 MEQ/L (136-145)
[2017-05-17 17:37] LABS: AST (GOT) 5 U/L (15-37)
[2017-05-17 17:39] LABS: ALKALINE PHOSPHATASE 56 U/L (45-117); ALT (GPT) 18 U/L (10-53); TOTAL BILIRUBIN ADULT 0.2 MG/DL (0.2-1.0)
[2017-05-17 19:50] VITALS: BP 121/76; PULSE 78; RESP 16; O2SAT 99
[2017-05-17] MEDS ORDERED: lamoTRIgine 100 MG TAB PO ONE (20:30)
[2017-05-17] MEDS ORDERED: DIVALPROEX DR 500 MG TABEC PO ONE (20:30)
[2017-05-17] MEDS ORDERED: DIVALPROEX SODIUM DELAYED RELEASE 250 MG TAB PO ONE (20:30)
[2017-05-17] MEDS ORDERED: MELOXICAM 15 MG TAB PO ONE (20:30)
[2017-05-17] MEDS ORDERED: ZIPRASIDONE HCL 20 MG CAP PO ONE (20:30)
--- NOTE | 2017-05-17 22:57 | PD ---
Physical Exam Narrative Patient was medically cleared for psychiatric evaluation. Data Data Last Documented VS Vital Signs Date Time Temp Pulse Resp B/P (MAP) Pulse Ox O2 Delivery O2 Flow Rate FiO2 05/17/17 19:50 78 16 121/76 (91) 99 Room Air 05/17/17 12:34 99.0 Orders Orders Knee, Ltd (1 Or 2vws) (05/17/17 ) Ankle, Limited (Ap&Lat) (05/17/17 ) Complete Blood Count With Diff (05/17/17 16:36) Comprehensive Metabolic Panel (05/17/17 16:36) Urinalysis - C+S If Indicated (05/17/17 16:36) Psych Screen (05/17/17 16:36) Drug Screen, Random Urine (05/17/17 16:36) Ammonia (05/17/17 17:03) Valproic Acid (Depakene) (05/17/17 17:28) Diet Regular Basic (05/17/17 Dinner) Divalproex (Luigi Ghosh) (05/17/17 20:30) Divalproex Dr (Luigi Ghosh) (05/17/17 20:30) Lamotrigine (Lamictal) (05/17/17 20:30) Meloxicam (Mobic) (05/17/17 20:30) Ziprasidone Hydrochloride (Geodon) (05/17/17 20:30) Ed Discharge Order (05/17/17 22:57) Labs Laboratory Tests Test 05/17/17 16:45 05/17/17 17:20 White Blood Count 7.9 TH/MM3 Red Blood Count 3.72 MIL/MM3 Hemoglobin 11.1 GM/DL Hematocrit 33.6 % Mean Corpuscular Volume 90.3 FL Mean Corpuscular Hemoglobin 29.7 PG Mean Corpuscular Hemoglobin Concent 32.9 % Red Cell Distribution Width 16.0 % Platelet Count 257 TH/MM3 Mean Platelet Volume 6.5 FL Neutrophils (%) (Auto) 60.4 % Lymphocytes (%) (Auto) 26.6 % Monocytes (%) (Auto) 11.3 % Eosinophils (%) (Auto) 1.4 % Basophils (%) (Auto) 0.3 % Neutrophils # (Auto) 4.8 TH/MM3 Lymphocytes # (Auto) 2.1 TH/MM3 Monocytes # (Auto) 0.9 TH/MM3 Eosinophils # (Auto) 0.1 TH/MM3 Basophils # (Auto) 0.0 TH/MM3 CBC Comment DIFF FINAL Differential Comment Urine Color YELLOW Urine Turbidity CLEAR Urine pH 6.5 Urine Specific [place] 1.019 Urine Protein NEG mg/dL Urine Glucose (UA) NEG mg/dL Urine Ketones TRACE mg/dL Urine Occult Blood TRACE Urine Nitrite NEG Urine Bilirubin NEG Urine Urobilinogen LESS THAN 2.0 MG/DL Urine Leukocyte Esterase NEG Urine RBC 1 /hpf Urine WBC 2 /hpf Urine Squamous Epithelial Cells 1 /hpf Microscopic Urinalysis Comment CULT NOT INDICATED Blood Urea Nitrogen 13 MG/DL Creatinine 0.51 MG/DL Random Glucose 87 MG/DL Total Protein 6.5 GM/DL Albumin 3.3 GM/DL Calcium Level 9.0 MG/DL Alkaline Phosphatase 56 U/L Aspartate Amino Transf (AST/SGOT) 5 U/L Alanine Aminotransferase (ALT/SGPT) 18 U/L Total Bilirubin 0.2 MG/DL Sodium Level 137 MEQ/L Potassium Level 3.6 MEQ/L Chloride Level 103 MEQ/L Carbon Dioxide Level 26.6 MEQ/L Anion Gap 7 MEQ/L Estimat Glomerular Filtration Rate 138 ML/MIN Urine Opiates Screen NEG Urine Barbiturates Screen NEG Valproic Acid (Depakene) Level 77 MCG/ML Urine Amphetamines Screen NEG Urine Benzodiazepines Screen NEG Urine Cocaine Screen NEG Urine Cannabinoids Screen NEG Ammonia 20 MCMOL/L MDM Supervised Visit with [facility]: No Narrative Course Patient was seen by psychiatric team. Psychiatric team spoke to patient's mother. Patient is cleared to be discharged. Diagnosis Primary Impression: Contusion of left knee Qualified Codes: S80.02XA - Contusion of left knee, initial encounter Additional Impressions: Intermittent explosive disorder Contusion of left ankle Qualified Codes: S90.02XA - Contusion of left ankle, initial encounter Patient Instructions: General Instructions Additional Instruction: Tylenol or Advil for pain. Continue with all medication. Follow-up with personal physician. Med/Other Pt SpecificInfo: No Change to Meds Disposition: 01 DISCHARGE HOME Condition: Stable Sukh Salcido MD May 17, 2017 22:57
== END 2017-05-18 00:22 | disposition home or self-care (01) ==
LOC: NEPD 12:32
DX: S80.02XA Contusion of left knee, initial encounter (principal); S90.02XA Contusion of left ankle, initial encounter; F63.81 Intermittent explosive disorder; W19.XXXA Unspecified fall, initial encounter
CPT/HCPCS: 73560; 73600; 80053; 80164; 80307; 81001; 82140; 85025; 99284

== ENCOUNTER 2017-10-02 04:10 | Emergency (ER) | payer MEDICARE, OTHER ==
[~2017-10-02] VITALS: Ht 160 cm; Wt 66.0 kg
[~2017-10-02 04:10] MED LIST changes: -MELO-1 PO; +MELO15TA20 PO
[2017-10-02 04:28] VITALS: BP 127/61; PULSE 70; RESP 14; TEMP 98.6; O2SAT 95
--- NOTE | 2017-10-02 04:57 | PD ---
HPI Chief Complaint: Fall Time Seen by Provider: 04:46 Travel History International Travel<30 days: No Contact w/Intl Traveler<30days: No Traveled to known affect area: No History of Present Illness HPI 32-year-old white female presents emergency department by EMS with complaints of left foot pain. She states that she had fallen and injured her foot earlier today. Pain is moderate. Worse with walking. No alleviating factor. PFSH Past Medical History Medical History: Unable to Obtain Hx Anticoagulant Therapy: No Arthritis: Yes Autoimmune Disease: No Anxiety: Yes Depression: No Heart Rhythm Problems: No Cancer: No Cardiovascular Problems: No High Cholesterol: No Chemotherapy: No Cerebrovascular Accident: No Developmental Delay: Yes Diabetes: No Diminished Hearing: No Endocrine: No Genitourinary: No Hypertension: No Immune Disorder: No Implanted Vascular Access Dvce: No Kidney Stones: No Musculoskeletal: No Neurologic: Yes Psychiatric: Yes Reproductive: No Respiratory: No Immunizations Current: No (uto) Radiation Therapy: No Renal Failure: No Seizures: Yes Sickle Cell Disease: No Sleep Apnea: No Thyroid Disease: Yes ?: Unknown Past Surgical History Surgical History: Unable to Obtain AICD: No Insulin Pump: No Joint Replacement: No Pacemaker: No Social History Alcohol Use: No Tobacco Use: No Substance Use: No Allergies-Medications (Allergen,Severity, Reaction): Coded Allergies: Sulfa (Sulfonamide Antibiotics) (Verified Allergy, Intermediate, HIVES, 10/02/17) Reported Meds & Prescriptions Reported Meds & Active Scripts Active Ibuprofen 600 Mg Tab 600 Mg PO Q8H PRN 7 Days Geodon (Ziprasidone) 20 Mg Cap 20 Mg PO BID Meloxicam 15 Mg Tab 15 Mg PO DAILY Synthroid (Levothyroxine Sodium) 50 Mcg Tab 50 Mcg PO DAILY@0600 Lamictal (Lamotrigine) 100 Mg Tab 100 Mg PO DAILY Divalproex DR (Divalproex Sodium) 250 Mg Tabdr 750 Mg PO TID 30 Days Cetirizine (Cetirizine HCl) 10 Mg Tab 10 Mg PO DAILY Reported Klonopin (Clonazepam) 1 Mg Tab 1 Mg PO TID Review of Systems Except as stated in HPI: all other systems reviewed are Neg Physical Exam Narrative GENERAL: Well-developed, well-nourished in no apparent distress. Nontoxic appearing. HEAD: Normocephalic, atraumatic. EYES: Pupils equal round and reactive. Extraocular motions intact. No scleral icterus. No injection or drainage. ENT: Nose clear. Throat without erythema, tonsillar hypertrophy or exudate. Uvula midline. Airway patent. NECK: Trachea midline. Supple, nontender, moves head freely. No central bony tenderness or spasm. CARDIOVASCULAR: Regular rate and rhythm without murmurs, gallops, or rubs. RESPIRATORY: Clear to auscultation. Breath sounds equal bilaterally. No wheezes , rales, or rhonchi. GASTROINTESTINAL: Abdomen soft, non-tender, nondistended. No hepato-splenomegaly , or palpable masses. No guarding. EXTREMITIES: No clubbing, cyanosis, examination of the left lower extremity reveals tenderness to the proximal forefoot. There is mild swelling. The skin is intact. No pain in the toes, heel, Achilles, ankle, knee or hip. The right lower extremity as well as upper extremities are unremarkable. BACK: Nontender without deformity. No flank tenderness. NEUROLOGICAL: Awake, alert and oriented x 3 .Cranial nerves grossly intact. Motor and sensory grossly within normal limits. Normal speech. Data Data Last Documented VS Vital Signs Date Time Temp Pulse Resp B/P (MAP) Pulse Ox O2 Delivery O2 Flow Rate FiO2 10/02/17 04:36 Room Air 10/02/17 04:28 98.6 70 14 127/61 (83) 95 Orders Orders Foot, Complete ([id number]) (10/02/17 04:55) Ed Discharge Order (10/02/17 05:45) Ibuprofen (Motrin) (10/02/17 05:45) Ice/Cold Pack (10/02/17 05:46) Splint Or Brace Apply/Monitor (10/02/17 05:46) [facility] Medical Decision Making Medical Screen Exam Complete: Yes Emergency Medical Condition: Yes Medical Record Reviewed: Yes Interpretation(s) Left foot: Negative acute fracture Differential Diagnosis MDM: High Differential diagnoses: Fracture, sprain, strain, dislocation, contusion, neurovascular injury Narrative Course X-rays negative for bony injury. Patient given Zak wrap, Motrin 600 mg p.o. and ice pack. This is left foot sprain Diagnosis Primary Impression: Left foot sprain Patient Instructions: General Instructions Additional Instructions: Rest. Elevation. Ice packs for the next 3 days. Zak wrap. Limit weight-bearing as tolerated. Medications as directed Follow-up with an orthopedist or your doctor in one week. Return to the ER if any problems Med/Other Pt SpecificInfo: Prescription(s) given Scripts Ibuprofen (Ibuprofen) 600 Mg Tab 600 MG PO Q8H Y for PAIN for 7 Days, #21 TAB 0 Refills Prov: Sukh Salcido MD 10/02/17 Disposition: 01 DISCHARGE HOME Condition: Stable Elias Jeronimo Oct 02, 2017 04:57
--- NOTE | 2017-10-02 05:26 | RADRPT ---
EXAM DATE/TIME: 10/02/2017 05:02 [facility] COMPARISON: No previous studies available for comparison. INDICATIONS : Pt tripped over blanket and fell MEDICAL HISTORY : None. SURGICAL HISTORY : None. ENCOUNTER: Initial ACUITY: 1 day PAIN SCORE: 7/10 LOCATION: Left Foot FINDINGS: Three view examination of the left foot demonstrates no soft tissue swelling, dislocation, or fractur e. The tarsal bones appear intact. The interphalangeal and metatarsophalangeal joints are intact. The calcaneus is intact. Bony mineralization is normal. CONCLUSION: No evidence of recent bony injury. He Denise MD on October 02, 2017 at 5:25 Board Certified Radiologist. This report was verified electronically.
[2017-10-02] MEDS ORDERED: IBUPROFEN 600 MG TAB PO ONE (05:45)
[2017-10-02] MEDS ORDERED: IBUP-232 PO (05:47)
[2017-10-02 08:41] VITALS: BP 126/58
== END 2017-10-02 08:49 | disposition home or self-care (01) ==
LOC: NEPD 04:10
DX: S93.602A Unspecified sprain of left foot, initial encounter (principal); W19.XXXA Unspecified fall, initial encounter
CPT/HCPCS: 73630; 99283

== ENCOUNTER 2017-10-06 12:06 | Emergency (ER) | payer MEDICARE, OTHER ==
[~2017-10-06] VITALS: Ht 160 cm; Wt 107.4 kg
[~2017-10-06 12:06] MED LIST changes: +IBUP-232 PO
[2017-10-06 12:13] VITALS: BP 98/51; PULSE 55; RESP 16; TEMP 98.5; O2SAT 98
[2017-10-06] MEDS ORDERED: DEPA500T3 PO (12:37)
[2017-10-06] MEDS ORDERED: TRAZ300T2 PO (12:37)
[2017-10-06] MEDS ORDERED: PROP20TA3 PO (12:37)
[2017-10-06] MEDS ORDERED: CARI1CAP2 PO (12:37)
--- NOTE | 2017-10-06 13:12 | PD ---
HPI Chief Complaint: Injury Time Seen by Provider: 12:21 Travel History International Travel<30 days: No Contact w/Intl Traveler<30days: No Traveled to known affect area: No History of Present Illness HPI 32-year-old developmentally delayed female here with her mother for evaluation of left pinky. She was seen approximately 5 days ago for foot pain after a fall and had negative x-rays at that time. Mom reports she had another fall due to the pain in the foot and now has worsening pain. They're concerned for his fractured. She denies paresthesia or weakness of the foot. Pain is worse with weightbearing. Slightly alleviated with rest. Denies any other injuries. Symptom severity is moderate. PFSH Past Medical History Hx Anticoagulant Therapy: No Arthritis: Yes Autoimmune Disease: No Bipolar Disorder: Yes Anxiety: Yes Depression: No Heart Rhythm Problems: No Cancer: No Cardiovascular Problems: No High Cholesterol: No Chemotherapy: No Cerebrovascular Accident: No Developmental Delay: Yes Diabetes: No Diminished Hearing: No Endocrine: No Genitourinary: No Hypertension: No Immune Disorder: No Implanted Vascular Access Dvce: No Kidney Stones: No Musculoskeletal: No Neurologic: Yes Psychiatric: Yes Reproductive: No Respiratory: No Immunizations Current: No (uto) Radiation Therapy: No Renal Failure: No Schizophrenia: Yes Seizures: Yes Sickle Cell Disease: No Sleep Apnea: No Thyroid Disease: Yes Influenza Vaccination: No ?: Not Past Surgical History AICD: No Insulin Pump: No Joint Replacement: No Pacemaker: No Social History Alcohol Use: No Tobacco Use: No Substance Use: No Allergies-Medications (Allergen,Severity, Reaction): Coded Allergies: Sulfa (Sulfonamide Antibiotics) (Verified Allergy, Intermediate, HIVES, 10/06/17) Reported Meds & Prescriptions Reported Meds & Active Scripts Active Ibuprofen 600 Mg Tab 600 Mg PO Q8H PRN 7 Days Synthroid (Levothyroxine Sodium) 50 Mcg Tab 50 Mcg PO DAILY@0600 Lamictal (Lamotrigine) 100 Mg Tab 100 Mg PO DAILY Reported Propranolol (Propranolol HCl) 20 Mg Tab 20 Mg PO Q12HR Trazodone (Trazodone HCl) 300 Mg Tab 300 Mg PO HS Depakote ER (Divalproex Sodium) 500 Mg Duane 1,500 Mg PO DAILY Vraylar (Cariprazine) 3 Mg Cap 3 Mg PO DAILY Klonopin (Clonazepam) 1 Mg Tab 1 Mg PO TID Review of Systems Except as stated in HPI: all other systems reviewed are Neg General / Constitutional: No: Fever Eyes: No: Visual changes HENT: No: Headaches Cardiovascular: No: Chest Pain or Discomfort Respiratory: No: Shortness of Breath Gastrointestinal: No: Abdominal Pain Genitourinary: No: Dysuria Musculoskeletal: No: Pain Skin: No Rash Physical Exam Narrative GENERAL: Alert and well-appearing 32-year-old female SKIN: Warm and dry. Several old appearing areas of ecchymosis to the left upper extremity. No bony tenderness in the arm. No deformity. HEAD: Normocephalic. Atraumatic EYES: Pupils equal, round, reactive to light. EOMs intact. NECK: Supple, trachea midline. No midline spine tenderness. CARDIOVASCULAR: Regular rate and rhythm without murmurs, gallops, or rubs. No chest wall tenderness RESPIRATORY: Breath sounds equal bilaterally. No accessory muscle use. GASTROINTESTINAL: Abdomen soft, non-tender, nondistended. MUSCULOSKELETAL: No cyanosis. Left lower extremity:+ Tenderness, mild swelling , mild ecchymosis to the left foot. 2+ dorsal pedis pulses. Brisk cap refill. Nontender femur, knee, tib-fib. BACK: Nontender without obvious deformity. No CVA tenderness. Data Data Last Documented VS Vital Signs Date Time Temp Pulse Resp B/P (MAP) Pulse Ox O2 Delivery O2 Flow Rate FiO2 10/06/17 12:13 98.5 55 16 98/51 (67) 98 Orders Orders Foot, Complete ([id number]) (10/06/17 ) Splint Or Brace Apply/Monitor (10/06/17 13:16) Acetamin-Hydrocod 325-5 Mg (Strang 5-325 (10/06/17 13:30) MDM Medical Decision Making Medical Screen Exam Complete: Yes Emergency Medical Condition: Yes Differential Diagnosis Metatarsal fracture, midfoot sprain, contusion Narrative Course 32-year-old female here with left foot pain after fall. The extremity is neurovascularly intact. X-rays show possible medial cuneiform fracture in the left foot. Posterior short leg splint applied. Family was instructed to follow -up with either podiatry or orthopedic doctor. They verbalize understanding and agree to plan. Diagnosis Primary Impression: Fracture of medial cuneiform of left foot Qualified Codes: S92.245A - Nondisplaced fracture of medial cuneiform of left foot, initial encounter for closed fracture Referrals: Yoav Theodore MD, Mark C. MD Orthopedist Safety Risk Lead Additional Instructions: The splint in place until follow-up with orthopedic or podiatry. Ice and elevate the extremity. Pain medication as described. Walker as needed for intubation Scripts Walker/Adult/Folding (Walker/Adult/Folding) 1 Mis Mis EA .XX DIRECTED, #1 0 Refills Prov: Debora Alvarado 10/06/17 Ibuprofen (Ibuprofen) 800 Mg Tab 800 MG PO Q6HR Y for PAIN, #40 TAB 0 Refills Prov: Debora Alvarado 10/06/17 Hydrocodone-Acetaminophen (Strang) 5 Mg-325 Mg Tab 1 TAB PO Q6H Y for PAIN, #12 TAB 0 Refills Prov: Debora Alvarado 10/06/17 Disposition: 01 DISCHARGE HOME Condition: Stable Debora Alvarado Oct 06, 2017 13:12
--- NOTE | 2017-10-06 13:13 | RADRPT ---
EXAM DATE/TIME: 10/06/2017 12:36 [facility] COMPARISON: FOOT LEFT COMPLETE ([id number]), October 02, 2017, 5:02. INDICATIONS : Left foot pain; fell 4 days ago. MEDICAL HISTORY : None. SURGICAL HISTORY : None. ENCOUNTER: [facility] ACUITY: 4 - 6 days PAIN SCORE: 7/10 LOCATION: Left foot. FINDINGS: Three view examination of the left foot demonstrates cortical disruption with suspected fracture thro ugh the lateral aspect of the medial cuneiform with intra-articular extension. This appears isolated. CONCLUSION: Possible fracture through the distal lateral aspect of the medial cuneiform with intra- articular extension. Ho Mckeon MD on October 06, 2017 at 13:07 Board Certified Radiologist. This report was verified electronically.
[2017-10-06] MEDS ORDERED: ACETAMINOPHEN/HYDROcodone 325 MG/5 MG TAB PO ONE (13:30)
[2017-10-06] MEDS ORDERED: IBUP1TAB7 PO (13:48)
[2017-10-06] MEDS ORDERED: WALKER/ADULT/FO1 MIS (13:48)
[2017-10-06] MEDS ORDERED: NORC5TAB PO (13:48)
== END 2017-10-06 14:09 | disposition home or self-care (01) ==
LOC: PHEFT 12:06
DX: S92.245A Nondisplaced fracture of medial cuneiform of left foot, initial encounter for closed fracture (principal); R62.50 Unspecified lack of expected normal physiological development in childhood; E07.9 Disorder of thyroid, unspecified; F31.9 Bipolar disorder, unspecified; F20.9 Schizophrenia, unspecified; F41.9 Anxiety disorder, unspecified; M19.90 Unspecified osteoarthritis, unspecified site; W19.XXXA Unspecified fall, initial encounter; Z88.2 Allergy status to sulfonamides; Z79.899 Other long term (current) drug therapy
CPT/HCPCS: 29515; 73630

== ENCOUNTER 2017-10-15 01:21 | Inpatient (IN) | payer MEDICARE, OTHER ==
[~2017-10-15] VITALS: Ht 160 cm; Wt 107.1 kg
[~2017-10-15 01:21] MED LIST changes: +CARI1CAP2 PO; -CETI10 PO; +DEPA500T3 PO; -DIVA250T PO; +IBUP1TAB7 PO; -MELO15TA20 PO; +NORC5TAB PO; +PROP20TA3 PO; +TRAZ300T2 PO; +WALKER/ADULT/FO1 MIS; -ZIPR20 PO
[2017-10-15 01:35] VITALS: BP 103/48; PULSE 63; RESP 18; O2SAT 98
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
--- NOTE | 2017-10-15 03:15 | RADRPT ---
EXAM DATE/TIME: 10/15/2017 02:49 [facility] COMPARISON: FOOT LEFT COMPLETE ([id number]), October 06, 2017, 12:36. INDICATIONS : Left foot pain, ongoing. MEDICAL HISTORY : None. SURGICAL HISTORY : None. ENCOUNTER: Subsequent ACUITY: 2 weeks PAIN SCORE: 10/10 LOCATION: Left foot FINDINGS: Three view examination of the left foot demonstrates persistent deformity of the lateral aspect of th e medial cuneiform with intra-articular extension. CONCLUSION: Fracture of the medial cuneiform with intra-articular extension. Ho Mckeon MD on October 15, 2017 at 3:11 Board Certified Radiologist. This report was verified electronically.
[2017-10-15 04:07] LABS: AUTOMATED NEUTROPHIL # 2.6 TH/MM3 (1.8-7.7); BASOPHIL % 0.2 % (0.0-2.0); EOSINOPHIL # 0.1 TH/MM3 (0-0.4); EOSINOPHIL % 2.5 % (0.0-4.0); HEMATOCRIT 33.7 % (35.0-46.0); HEMOGLOBIN 11.1 GM/DL (11.6-15.3); LYMPH % 35.1 % (9.0-44.0); LYMPHOCYTE # 1.7 TH/MM3 (1.0-4.8); MEAN CELL VOLUME 87.3 FL (80.0-100.0); MEAN CORPUSCULAR HEMOGLOBIN 28.8 PG (27.0-34.0); MEAN CORPUSCULAR HGB CONC 32.9 % (32.0-36.0); MEAN PLATELET VOLUME 6.8 FL (7.0-11.0); MONO % 9.9 % (0.0-8.0); MONOCYTE # 0.5 TH/MM3 (0-0.9); NEUT % 52.3 % (16.0-70.0); PLATELET COUNT 228 TH/MM3 (150-450); RED BLOOD COUNT 3.86 MIL/MM3 (4.00-5.30); RED CELL DISTRIBUTION WIDTH 16.4 % (11.6-17.2)
[2017-10-15 04:37] LABS: ALBUMIN 3.4 GM/DL (3.4-5.0); ALT (GPT) 20 U/L (10-53); AST (GOT) 6 U/L (15-37); BICARBONATE 28.8 MEQ/L (21.0-32.0); BLOOD UREA NITROGEN 6 MG/DL (7-18); CALCIUM 8.9 MG/DL (8.5-10.1); CHLORIDE 102 MEQ/L (98-107); CREATININE 0.68 MG/DL (0.50-1.00); GLOMERULAR FILTRATION RATE 99 ML/MIN (>89); GLUCOSE,RANDOM 83 MG/DL (74-106); SODIUM (NA) 139 MEQ/L (136-145)
[2017-10-15 04:46] LABS: ALKALINE PHOSPHATASE 71 U/L (45-117); TOTAL BILIRUBIN ADULT 0.2 MG/DL (0.2-1.0)
--- NOTE | 2017-10-15 08:29 | HHI.HP ---
Provisional Diagnosis Admission Date 10/15/17 [place] I. 1. Unspecified psychosis 2. Intermittent explosive disorder [place] II. 1. Unspecified intellectual disability Certification of Person's Competence To Provide Express and Informed Consent I have personally examined Gonsalo Fournier , a person being served at [facility] on, Oct 15, 2017 08:29. Express and informed consent means consent voluntarily given in writing, by a competent person, after sufficient explanation and disclosure of the subject matter involved to enable the person to make a knowing and willful decision without any element of force, fraud, deceit, duress, or other form of constraint or coercion. This person is 18 years of age or older, is not now known to be incompetent to consent to treatment with a guardian advocate, and does not have a health care surrogate or proxy currently making medical treatment decisions. I have found this person to be one of the following: [] Competent to provide express and informed consent, as defined above, for voluntary admission to this facility and is competent to provide express and informed consent for treatment. He/she has the consistent capacity to make well reasoned, willful, and knowing decisions concerning his or her medical or mental health treatment. The person fully and consistently understands the purpose of the admission for examination/placement and is fully capable of personally exercising all rights assured [place] [X] Incompetent to provide express and informed consent to voluntary admission, and this is incompetent to provide express and informed consent to treatment. The person must be transferred to involuntary status and a petition for a guardian advocate filed with the Circuit Court. [] Refusing to provide express and informed consent to voluntary admission but is competent to provide express and informed consent for treatment. The person must be discharged or transferred to involuntary status. Form shall be completed within 24 hours of a person's arrival at the receiving facility and filed in the clinical record of each person: 1. Admitted on a voluntary basis 2. Permitted to provide express and informed consent to his/her own treatment 3. Allowed to transfer from involuntary to voluntary status 4. Prior to permitting a person to consent to his or her own treatment after having been previously found incompetent to consent to treatment. History of Present Illness Capacity: Lacks Capacity Psych Chief Complaint: Psychosis HPI Ms. Fournier is a 32-year-old female with a history of psychosis NOS, intermittent explosive disorder and intellectual disability who presented to the emergency department on a voluntary basis with complaints of left foot pain. Patient apparently disclosed some delusional material to the ED provider and psychiatric evaluation was requested. Reviewing the electronic medical record, I note the patient was psychiatrically admitted most recently under Dr. Louise in May 2017. Patient seen and examined with nurse. Chart reviewed. Case discussed with nursing staff. On my examination today, the patient presents as quite childlike. She is a poor historian. She reports that she is receiving messages from several cartoon characters ("Praveena the [employer] and Irlanda too") as well as "the witch ladies" who she reports reside in [place]. She denies SI or HI but seems unreliable to contract for safety. No depressive or hypomanic/ manic symptoms. Bizarre delusions present. She believes that she is on the wrong medications. Psychiatric interview is quite limited because of the patient's cognitive impairment and current psychiatric symptoms. No acute physical complaints. I obtained collateral information from the patient's mother. She reports that the patient was recently started on Vraylar and this has worsened patient's behaviors and psychosis. She notes that patient's behaviors are threatening their housing. She notes yesterday she found the patient with a knife, and when she asked patient about it, patient reportedly told her that people in the [place] "told me to do that." There has also been a similar episode with a hammer. Mother would like to have the patient admitted for stabilization. We review current med list: Inderal is Rx'd by psychiatrist, mother is not sure why ; Klonopin has been d/c'd since pt follows at [facility], but she did do well with this agent in the past; Depakote and LCT are for seizure; trazodone is of questionable benefit for sleep; Vraylar is definitely worsening patient's condition per mother. Risperdal helped in past but caused hematologic issues. Ativan causes paradoxical worsening of anxiety/agitation. Mother is in agreement with the plan as outlined below. I spent about 12 minutes in telephone consultation with patient's mother. Review of Systems ROS Limitations: Poor Historian Except as stated in HPI: all other systems reviewed are Neg Past Psych History Psychological trauma history No reported trauma history Violence risk - others (6 mos) Unpredictable Violence risk - self (6 mos) Unpredictable Substance Abuse History Drugs/Alcohol past 12 months No reported substance use Past Family Social History Coded Allergies: Sulfa (Sulfonamide Antibiotics) (Verified Allergy, Intermediate, HIVES, 10/06/17) Past Medical History See electronic medical record Active Scripts Walker/Adult/Folding (Walker/Adult/Folding) 1 Mis Mis, EA .XX DIRECTED, #1 0 Refills Prov:Debora Alvarado ACCOUNTS RECEIVABLE ANALYST 10/06/17 Levothyroxine (Synthroid) 50 Mcg Tab, 50 MCG PO DAILY@0600 for health, #30 TAB 0 Refills Prov:Deejay Louise MD 05/11/17 Lamotrigine (Lamictal) 100 Mg Tab, 100 MG PO DAILY for health, #30 TAB 0 Refills Prov:Deejay Louise MD 05/11/17 Reported Medications Divalproex ER (Depakote ER) 500 Mg [place], 1500 MG PO DAILY for Control Seizures , #60 TAB 0 Refills 10/06/17 Discontinued Reported Medications Propranolol (Propranolol) 20 Mg Tab, 20 MG PO Q12HR, #60 TAB 0 Refills 10/06/17 Trazodone (Trazodone) 300 Mg Tab, 300 MG PO HS for Control Depression, #30 TAB 0 Refills 10/06/17 Cariprazine (Vraylar) 3 Mg Cap, 3 MG PO DAILY, #30 CAP 0 Refills 10/06/17 Clonazepam (Klonopin) 1 Mg Tab, 1 MG PO TID, #90 TAB 0 Refills 05/28/17 Discontinued Scripts Ibuprofen (Ibuprofen) 800 Mg Tab, 800 MG PO Q6HR Y for PAIN, #40 TAB 0 Refills Prov:Debora Alvarado ACCOUNTS RECEIVABLE ANALYST 10/06/17 Hydrocodone-Acetaminophen (Baltic) 5 Mg-325 Mg Tab, 1 TAB PO Q6H Y for PAIN, #12 TAB 0 Refills Prov:Debora Alvarado ACCOUNTS RECEIVABLE ANALYST 10/06/17 Ibuprofen (Ibuprofen) 600 Mg Tab, 600 MG PO Q8H Y for PAIN for 7 Days, #21 TAB 0 Refills Prov:Sukh Salcido MD 10/02/17 Current Medications Medications (Trade) Dose Ordered Sig/Amari Route Start Time Stop Time Status Last Admin (Depakote Er) 1,500 mg DAILY PO 10/15/17 09:00 (LaMICtal) 100 mg DAILY PO 10/15/17 09:00 (Synthroid) 50 mcg DAILY@0600 PO 10/16/17 06:00 Family Psych History No reported history Social History Lives with mother. Patient's Strengths (min. 2) Supportive mother. Verbally fluent. Physical Exam Physical exam completed by ED provider. On my examination today, the patient appears to be in no acute physical distress. No motor abnormalities noted. Labs and vitals reviewed: Vital Signs Vital Signs Date Time Temp Pulse Resp B/P (MAP) Pulse Ox O2 Delivery O2 Flow Rate FiO2 10/15/17 01:35 63 18 103/48 (66) 98 Lab Results Test 10/15/17 04:00 White Blood Count 5.0 TH/MM3 Red Blood Count 3.86 MIL/MM3 Hemoglobin 11.1 GM/DL Hematocrit 33.7 % Mean Corpuscular Volume 87.3 FL Mean Corpuscular Hemoglobin 28.8 PG Mean Corpuscular Hemoglobin Concent 32.9 % Red Cell Distribution Width 16.4 % Platelet Count 228 TH/MM3 Mean Platelet Volume 6.8 FL Neutrophils (%) (Auto) 52.3 % Lymphocytes (%) (Auto) 35.1 % Monocytes (%) (Auto) 9.9 % Eosinophils (%) (Auto) 2.5 % Basophils (%) (Auto) 0.2 % Neutrophils # (Auto) 2.6 TH/MM3 Lymphocytes # (Auto) 1.7 TH/MM3 Monocytes # (Auto) 0.5 TH/MM3 Eosinophils # (Auto) 0.1 TH/MM3 Basophils # (Auto) 0.0 TH/MM3 CBC Comment DIFF FINAL Differential Comment Blood Urea Nitrogen 6 MG/DL Creatinine 0.68 MG/DL Random Glucose 83 MG/DL Total Protein 7.0 GM/DL Albumin 3.4 GM/DL Calcium Level 8.9 MG/DL Alkaline Phosphatase 71 U/L Aspartate Amino Transf (AST/SGOT) 6 U/L Alanine Aminotransferase (ALT/SGPT) 20 U/L Total Bilirubin 0.2 MG/DL Sodium Level 139 MEQ/L Potassium Level 3.5 MEQ/L Chloride Level 102 MEQ/L Carbon Dioxide Level 28.8 MEQ/L Anion Gap 8 MEQ/L Estimat Glomerular Filtration Rate 99 ML/MIN Thyroid Stimulating Hormone 3rd Gen 0.945 uIU/ML Valproic Acid (Depakene) Level 100 MCG/ML Ethyl Alcohol Level LESS THAN 3 MG/DL Mental Status Examination Appearance: Disheveled Consciousness: Alert Orientation: Person, Place Motor Activity: Other (no motor abnormalities noted) Speech: Unremarkable Language: Other (vocabulary somewhat limited) Fund of Knowledge: Inadequate Attention and Concentration: Inadequate Memory: Unremarkable Mood: Other (presently calm) Affect: Other (childlike) Thought Process & Associations: Tangential Thought Content: Delusional, Other (magical thinking) Hallucination Type: Auditory Delusion Type: Bizarre Suicidal Ideation: No (unreliable to contract for safety) Homicidal Ideation: No (unreliable to contract for safety) Insight: Poor Judgment: Poor Assessment & Plan Problem List: (1) Psychosis ICD Codes: F29 - Psychosis Status: Acute (2) Intellectual disability ICD Codes: F79 - Unspecified intellectual disabilities (3) INTERMITTENT EXPLOSIVE DISORDER ICD Codes: F63.81 - INTERMITTENT EXPLOSIVE DISORDER Status: Acute Assessment & Plan 32-year-old female with psychiatric history as detailed above who presented voluntarily to the ER for somatic complaints. On my examination today, the patient elaborates hallucinations and delusions. Although I see previous notations, particularly from Dr. Chambers, that question the degree of psychosis, I think the patient's presentation on my examination and collateral information obtained from mother are certainly concerning for this. I will plan to admit the patient to the inpatient psychiatric unit for safety, observation and stabilization. Admit inpatient. Involuntary status. I have completed first opinion. Consult for second opinion. Request healthcare surrogate and guardian advocate. Discontinue Vraylar and Inderal and trazodone. Start Thorazine 50mg daily at 0900 and 1500 as well as 100mg at HS with additional 100mg HS p.r.n. insomnia. Klonopin as needed for anxiety. Continue Depakote and Lamictal which are for seizure. R/B/A for all medications discussed with mother. Seizure precautions. Fall precautions. PT/OT eval. Vitals every shift. Counselor to see. Disposition planning. Estimated length of stay: 5-7 days. Discharge Planning Pending psychiatric stabilization Request HC Surrog/Guard Advoc?: Yes Problem Qualifiers (1) Psychosis: Qualified Codes: F29 - Unspecified psychosis not due to a substance or known physiological condition Naif Gold MD Oct 15, 2017 08:29
[2017-10-15] MEDS ORDERED: BENZTROPINE MESYLATE 2 MG/2 ML VIAL IM PRN (08:30)
[2017-10-15] MEDS ORDERED: BENZTROPINE MESYLATE 1 MG TAB PO PRN (08:30)
[2017-10-15] MEDS ORDERED: NICOTINE 21 MG/24 HR PATCH T-DERMAL PRN (08:30)
[2017-10-15] MEDS ORDERED: ALUMINUM/MAGNESIUM/SIMETH 30 ML CUP PO PRN (08:30)
[2017-10-15] MEDS ORDERED: MAGNESIUM HYDROXIDE SUSP 30 ML CUP PO PRN (08:30)
[2017-10-15 11:45] VITALS: BP 109/62; PULSE 67; RESP 20; TEMP 98.5; O2SAT 98
[2017-10-15] MEDS: lamoTRIgine 100 MG TAB PO SCH (12:58)
[2017-10-15] MEDS: DIVALPROEX SODIUM E.R. 500 MG TAB PO SCH (12:58)
[2017-10-15 16:22] VITALS: BP 146/58; PULSE 77; RESP 17; TEMP 96.9; O2SAT 99
[2017-10-15] MEDS: clonazePAM 1 MG TAB PO PRN (16:54)
[2017-10-15] MEDS: ACETAMINOPHEN 325 MG TAB PO PRN (16:55)
[2017-10-15] MEDS ORDERED: REMOVE OLD NICODERM (NICOTINE) PATCH T-DERMAL PRN (21:00)
[2017-10-16] MEDS: LEVOTHYROXINE SODIUM 50 MCG TAB PO SCH (06:00)
[2017-10-16 06:32] VITALS: BP 105/54; PULSE 62; RESP 16; TEMP 97.3; O2SAT 94
[2017-10-16] MEDS: lamoTRIgine 100 MG TAB PO SCH (08:38)
[2017-10-16] MEDS: DIVALPROEX SODIUM E.R. 500 MG TAB PO SCH (08:38)
[2017-10-16 10:33] LABS: AUTOMATED NEUTROPHIL # 2.7 TH/MM3 (1.8-7.7); BASOPHIL % 0.2 % (0.0-2.0); EOSINOPHIL # 0.1 TH/MM3 (0-0.4); EOSINOPHIL % 1.8 % (0.0-4.0); HEMATOCRIT 31.6 % (35.0-46.0); HEMOGLOBIN 10.4 GM/DL (11.6-15.3); LYMPH % 36.9 % (9.0-44.0); LYMPHOCYTE # 1.8 TH/MM3 (1.0-4.8); MEAN CELL VOLUME 87.9 FL (80.0-100.0); MEAN CORPUSCULAR HEMOGLOBIN 28.9 PG (27.0-34.0); MEAN CORPUSCULAR HGB CONC 32.8 % (32.0-36.0); MEAN PLATELET VOLUME 7.1 FL (7.0-11.0); MONO % 6.9 % (0.0-8.0); MONOCYTE # 0.3 TH/MM3 (0-0.9); NEUT % 54.2 % (16.0-70.0); PLATELET COUNT 226 TH/MM3 (150-450); RED CELL DISTRIBUTION WIDTH 16.8 % (11.6-17.2)
[2017-10-16 11:04] LABS: CHOLESTEROL 174 MG/DL (120-200)
[2017-10-16 11:07] LABS: CHOLESTEROL/ HDL RATIO 3.67 RATIO; HDL CHOLESTEROL 47.3 MG/DL (40.0-60.0); LDL CHOLESTEROL 97 MG/DL (0-99); TRIGLYCERIDES 147 MG/DL (42-150)
--- NOTE | 2017-10-16 14:16 | HHI.PYPN ---
Subjective Chief Complaint: Psychosis Remarks This is a request for scecond opinion. Admission note was reviewed and I agree with the history. Pt has obvious cognitive deficits and is quite childlike. She continues to have various bizarre delusions. She is pleasant/cooperative with exam. Tolerating medication well. Mental Status Examination Appearance: Disheveled Consciousness: Alert Orientation: Person, Place Motor Activity: Other (no motor abnormalities noted) Speech: Unremarkable Language: Other (vocabulary somewhat limited) Fund of Knowledge: Inadequate Attention and Concentration: Inadequate Memory: Unremarkable Mood: Other (presently calm) Affect: Other (childlike) Thought Process & Associations: Disorganized, Tangential Thought Content: Delusional, Other (magical thinking) Hallucination Type: Auditory Delusion Type: Bizarre Suicidal Ideation: No (unreliable to contract for safety) Homicidal Ideation: No (unreliable to contract for safety) Insight: Poor Judgment: Poor Results Labs Test 10/16/17 09:32 White Blood Count 5.0 TH/MM3 Red Blood Count 3.60 MIL/MM3 Hemoglobin 10.4 GM/DL Hematocrit 31.6 % Mean Corpuscular Volume 87.9 FL Mean Corpuscular Hemoglobin 28.9 PG Mean Corpuscular Hemoglobin Concent 32.8 % Red Cell Distribution Width 16.8 % Platelet Count 226 TH/MM3 Mean Platelet Volume 7.1 FL Neutrophils (%) (Auto) 54.2 % Lymphocytes (%) (Auto) 36.9 % Monocytes (%) (Auto) 6.9 % Eosinophils (%) (Auto) 1.8 % Basophils (%) (Auto) 0.2 % Neutrophils # (Auto) 2.7 TH/MM3 Lymphocytes # (Auto) 1.8 TH/MM3 Monocytes # (Auto) 0.3 TH/MM3 Eosinophils # (Auto) 0.1 TH/MM3 Basophils # (Auto) 0.0 TH/MM3 CBC Comment DIFF FINAL Differential Comment Hemoglobin A1c 5.0 % Triglycerides Level 147 MG/DL Cholesterol Level 174 MG/DL LDL Cholesterol 97 MG/DL HDL Cholesterol 47.3 MG/DL Cholesterol/HDL Ratio 3.67 RATIO Vitals/IOs Vital Signs Date Time Temp Pulse Resp B/P (MAP) Pulse Ox O2 Delivery O2 Flow Rate FiO2 10/16/17 06:32 97.3 62 16 105/54 (71) 94 Intake and Output 10/16/17 10/16/17 10/17/17 08:00 16:00 00:00 Intake Total 360 ml Balance 360 ml Assessment & Plan Problem List: (1) Psychosis ICD Codes: F29 - Psychosis Status: Acute (2) Intellectual disability ICD Codes: F79 - Unspecified intellectual disabilities (3) INTERMITTENT EXPLOSIVE DISORDER ICD Codes: F63.81 - INTERMITTENT EXPLOSIVE DISORDER Status: Acute Assessment & Plan I agree with the first opinion to continue petition, criteria include acute psychosis. Justification for Cont. Inpt. Pt would decompensate in a less restrictive setting Request HC Surrog/Guard Advoc?: Yes Problem Qualifiers (1) Psychosis: Qualified Codes: F29 - Unspecified psychosis not due to a substance or known physiological condition Garrett Rodrigeuz DO Oct 16, 2017 14:16
[2017-10-16 16:39] VITALS: BP 114/90
[2017-10-17 06:28] VITALS: BP 120/55; PULSE 75; RESP 18; TEMP 97.9; O2SAT 95
[2017-10-17] MEDS: LEVOTHYROXINE SODIUM 50 MCG TAB PO SCH (06:37)
[2017-10-17] MEDS: ACETAMINOPHEN 325 MG TAB PO PRN (08:50)
[2017-10-17] MEDS: DIVALPROEX SODIUM E.R. 500 MG TAB PO SCH (08:51)
[2017-10-17] MEDS: lamoTRIgine 100 MG TAB PO SCH (08:51)
[2017-10-17] MEDS: clonazePAM 1 MG TAB PO PRN (08:51)
--- NOTE | 2017-10-17 08:51 | HHI.PYPN ---
Subjective Chief Complaint: Psychosis Remarks Patient seen and examined with nurse. Chart reviewed. Case discussed with nursing staff. Patient noted to be somewhat hyperverbal and bizarre by nursing staff, reportedly believes that ET is talking to her. On my examination today, the patient is calm. Speech remains somewhat rapid, although not sure how far off her baseline this is. She rambles about people from [place] and devils. No SI or HI. No side effects from medications. No physical complaints. Spoke with patient's mother who feels the patient is improving but not yet at her baseline. We discussed adjusting medications to try to bring patient's symptoms into better control with plan to reassess for possible discharge middle of the week. I spent 5 minutes in telephone consultation with patient's mother. Review of Systems ROS Limitations: Poor Historian Except as stated in HPI: all other systems reviewed are Neg Mental Status Examination Appearance: Disheveled Consciousness: Alert Orientation: Person, Place Motor Activity: Other (no abnormal motor movements noted. No hand tremor, no cogwheeling, no dystonias, no dyskinesias) Speech: Unremarkable Language: Other (vocabulary somewhat limited) Fund of Knowledge: Inadequate Attention and Concentration: Inadequate Memory: Unremarkable Mood: Other (calm) Affect: Other (remains quite childlike) Thought Process & Associations: Disorganized, Tangential Thought Content: Other (magical thinking) Hallucination Type: None Delusion Type: Bizarre Suicidal Ideation: No Homicidal Ideation: No Insight: Poor Judgment: Poor Results Labs Test 10/16/17 09:32 White Blood Count 5.0 TH/MM3 Red Blood Count 3.60 MIL/MM3 Hemoglobin 10.4 GM/DL Hematocrit 31.6 % Mean Corpuscular Volume 87.9 FL Mean Corpuscular Hemoglobin 28.9 PG Mean Corpuscular Hemoglobin Concent 32.8 % Red Cell Distribution Width 16.8 % Platelet Count 226 TH/MM3 Mean Platelet Volume 7.1 FL Neutrophils (%) (Auto) 54.2 % Lymphocytes (%) (Auto) 36.9 % Monocytes (%) (Auto) 6.9 % Eosinophils (%) (Auto) 1.8 % Basophils (%) (Auto) 0.2 % Neutrophils # (Auto) 2.7 TH/MM3 Lymphocytes # (Auto) 1.8 TH/MM3 Monocytes # (Auto) 0.3 TH/MM3 Eosinophils # (Auto) 0.1 TH/MM3 Basophils # (Auto) 0.0 TH/MM3 CBC Comment DIFF FINAL Differential Comment Hemoglobin A1c 5.0 % Triglycerides Level 147 MG/DL Cholesterol Level 174 MG/DL LDL Cholesterol 97 MG/DL HDL Cholesterol 47.3 MG/DL Cholesterol/HDL Ratio 3.67 RATIO Labs are reviewed. Vitals/IOs Vital Signs Date Time Temp Pulse Resp B/P (MAP) Pulse Ox O2 Delivery O2 Flow Rate FiO2 10/17/17 06:28 97.9 75 18 120/55 (76) 95 Intake and Output 10/17/17 10/17/17 10/18/17 08:00 16:00 00:00 Intake Total 240 ml Balance 240 ml Assessment & Plan Problem List: (1) Psychosis ICD Codes: F29 - Psychosis Status: Acute (2) Intellectual disability ICD Codes: F79 - Unspecified intellectual disabilities (3) INTERMITTENT EXPLOSIVE DISORDER ICD Codes: F63.81 - INTERMITTENT EXPLOSIVE DISORDER Status: Acute Assessment & Plan Titrate Thorazine to 100 mg 3 times daily with additional Thorazine available at bedtime as needed for insomnia. Continue Depakote and Lamictal as ordered. Continue to monitor on the inpatient unit. Continue other medications and care as ordered. Justification for Cont. Inpt. Medication changes. Impairment in reality construction. High risk for decompensation in less restrictive environment. Discharge Planning Possible middle of the week discharge. Request HC Surrog/Guard Advoc?: Yes Problem Qualifiers (1) Psychosis: Qualified Codes: F29 - Unspecified psychosis not due to a substance or known physiological condition Naif Gold MD Oct 17, 2017 08:51
[2017-10-17 18:11] VITALS: BP 130/61; PULSE 76; RESP 18; TEMP 98; O2SAT 96
[2017-10-18 05:20] VITALS: BP 111/53; PULSE 73; RESP 16; TEMP 97.5; O2SAT 95
[2017-10-18] MEDS: LEVOTHYROXINE SODIUM 50 MCG TAB PO SCH (05:52)
--- NOTE | 2017-10-18 08:48 | HHI.PYPN ---
Subjective Chief Complaint: Psychosis Remarks Patient seen and examined with nurse. Chart reviewed. Case discussed with nursing staff. Case discussed in treatment team. On my exam, patient is quite childlike. She continues to verbalize some material about "Praveena the [employer] and Tigger too" and seeing a "possum in the fireplace," but the quality of these verbalizations seem more in line with magical thinking at this point than marleen nhung psychosis. She denies any SI or HI. Denies side effects from medications. No acute physical complaints. Review of Systems ROS Limitations: Poor Historian Except as stated in HPI: all other systems reviewed are Neg Mental Status Examination Appearance: Appropriate Consciousness: Alert Orientation: Person, Place Motor Activity: Other (no motor abnormalities noted. No EPS.) Speech: Unremarkable Language: Other (vocabulary somewhat limited) Fund of Knowledge: Inadequate Attention and Concentration: Inadequate Memory: Unremarkable Mood: Other (calm) Affect: Other (childlike) Thought Process & Associations: Tangential Thought Content: Other (magical thinking) Hallucination Type: None Delusion Type: None Suicidal Ideation: No Homicidal Ideation: No Insight: Poor Judgment: Poor Results Labs Labs reviewed. No new labs. Vitals/IOs Vital Signs Date Time Temp Pulse Resp B/P (MAP) Pulse Ox O2 Delivery O2 Flow Rate FiO2 10/18/17 05:20 97.5 73 16 111/53 (72) 95 Intake and Output 10/18/17 10/18/17 10/19/17 08:00 16:00 00:00 Intake Total 240 ml Balance 240 ml Assessment & Plan Problem List: (1) INTERMITTENT EXPLOSIVE DISORDER ICD Codes: F63.81 - INTERMITTENT EXPLOSIVE DISORDER Status: Acute (2) Intellectual disability ICD Codes: F79 - Unspecified intellectual disabilities Assessment & Plan Titrate Thorazine to 150mg qAM and qPM and 200mg qHS. Continue to monitor on the inpatient unit. Continue other medications and care as ordered. Justification for Cont. Inpt. Medication changes. Discharge Planning Possible discharge tomorrow, Tuesday Request HC Surrog/Guard Advoc?: Yes Naif Gold MD Oct 18, 2017 08:48
[2017-10-18] MEDS: lamoTRIgine 100 MG TAB PO SCH (08:51)
[2017-10-18] MEDS: DIVALPROEX SODIUM E.R. 500 MG TAB PO SCH ×2 (08:51→09:04)
[2017-10-18 17:27] VITALS: BP 112/60; PULSE 74; RESP 16; TEMP 98; O2SAT 96
[2017-10-18] MEDS: ACETAMINOPHEN 325 MG TAB PO PRN (20:51)
[2017-10-19] MEDS: LEVOTHYROXINE SODIUM 50 MCG TAB PO SCH (05:39)
[2017-10-19 06:09] VITALS: BP 96/50; PULSE 72; RESP 17; TEMP 98; O2SAT 99
--- NOTE | 2017-10-19 08:11 | HHI.DS ---
Psychiatry Discharge Summary Inpatient Psychiatric care?: Yes Advance Directive: No Reason Not Provided: EDUCATION PROVIDED Mental Health AdvanceDirective: No Health Care Proxy: No Admission Admission Date Oct 15, 2017 at 08:27 Admission Diagnosis: (1) Psychosis ICD Code: F29 - Psychosis (2) INTERMITTENT EXPLOSIVE DISORDER ICD Code: F63.81 - INTERMITTENT EXPLOSIVE DISORDER (3) Intellectual disability ICD Code: F79 - Unspecified intellectual disabilities Brief History Ms. Fournier is a 32-year-old female with a history of psychosis NOS, intermittent explosive disorder and intellectual disability who presented to the emergency department on a voluntary basis with complaints of left foot pain. Patient apparently disclosed some delusional material to the ED provider and psychiatric evaluation was requested. Reviewing the electronic medical record, I note the patient was psychiatrically admitted most recently under Dr. Louise in May 2017. Patient seen and examined with nurse. Chart reviewed. Case discussed with nursing staff. On my examination today, the patient presents as quite childlike. She is a poor historian. She reports that she is receiving messages from several [employer]ffect[employer] characters ("Lacho and Irlanda too") as well as "the witch ladies" who she reports reside in [place]. She denies SI or HI but seems unreliable to contract for safety. No depressive or hypomanic/ manic symptoms. Bizarre delusions present. She believes that she is on the wrong medications. Psychiatric interview is quite limited because of the patient's cognitive impairment and current psychiatric symptoms. No acute physical complaints. I obtained collateral information from the patient's mother. She reports that the patient was recently started on Vraylar and this has worsened patient's behaviors and psychosis. She notes that patient's behaviors are threatening their housing. She notes yesterday she found the patient with a knife, and when she asked patient about it, patient reportedly told her that people in the [place] "told me to do that." There has also been a similar episode with a hammer. Mother would like to have the patient admitted for stabilization. We review current med list: Inderal is Rx'd by psychiatrist, mother is not sure why ; Klonopin has been d/c'd since pt follows at [facility], but she did do well with this agent in the past; Depakote and LCT are for seizure; trazodone is of questionable benefit for sleep; Vraylar is definitely worsening patient's condition per mother. Risperdal helped in past but caused hematologic issues. Ativan causes paradoxical worsening of anxiety/agitation. Mother is in agreement with the plan as outlined below. I spent about 12 minutes in telephone consultation with patient's mother. Tobacco Use In Past 30 Days: No Tobacco Past 30 Days Alcohol Use: Never Hospital Course Patient was admitted to a locked, inpatient psychiatric unit. Appropriate precautions in place throughout patient's hospital stay. Patient was seen and examined on the unit by psychiatry and also visited by counselor. Psychotropic medications were adjusted. Patient tolerated medication changes well without side effects. Patient had improvement in presenting psychiatric symptomatology during the course of her hospital stay. There was no evidence of any suicidality or homicidality on the inpatient unit. Patient's behavior improved with the benefit of psychopharmacologic treatment. She was compliant with medications. Collateral information was obtained from the patient's mother. On the day of discharge: Patient seen and examined with nurse. Chart reviewed. Case discussed with nursing staff. On my examination today, the patient is calm and cooperative with exam. She denies any suicidal or homicidal ideation, intent or plan. She does not verbalize any delusional material, nor does she appear internally stimulated. No mood symptoms. Denies side effects from medications. No acute physical complaints. I have discussed the case with the patient's mother today, and she is comfortable receiving the patient home today. Suicide and violence risk assessment on day of discharge both suggest lower imminent risk, and the patient's level of function is adequate for outpatient care. Patient has maximized benefit from this inpatient psychiatric hospital stay and will be discharged home today with psychiatric follow-up as arranged by counselor. Patient is also to follow-up with primary care. Patient return to psychiatric emergency room for any concerning psychiatric symptoms as part of a general safety plan. Results Blood Pressure 96 / 50 Vital Signs Date Time Temp Pulse Resp B/P (MAP) Pulse Ox O2 Delivery O2 Flow Rate FiO2 10/19/17 06:09 98.0 72 17 96/50 (65) 99 Laboratory Tests Test 10/16/17 09:32 Red Blood Count 3.60 MIL/MM3 (4.00-5.30) Hemoglobin 10.4 GM/DL (11.6-15.3) Hematocrit 31.6 % (35.0-46.0) Laboratory Results Test 10/15/17 04:00 10/16/17 09:32 Valproic Acid (Depakene) Level 100 MCG/ML (50-100) Cholesterol Level 174 MG/DL (120-200) HDL Cholesterol 47.3 MG/DL (40.0-60.0) Hemoglobin A1c 5.0 % (4.3-6.0) LDL Cholesterol 97 MG/DL (0-99) Triglycerides Level 147 MG/DL (42-150) Summary of Procedures None done Imaging Last Impressions Foot X-Ray 10/15/17 0000 Signed Impressions: Service Date/Time: Sunday, October 15, 2017 02:49 - CONCLUSION: Fracture of the medial cuneiform with intra-articular extension. Ho Mckeon MD Pending results at discharge: No Medications # of Antipsychotic meds at D/C: 1 Approp Antipsych med options 1 - Minimum of three failed multiple trials of monotherapy. 2 - Documented plan to taper to monotherapy due to previous use of multiple meds OR cross-taper in progress at D/C. 3 - Documentation of augmentation of Clozapine. 4 - Justification other than those listed in allowable values 1-3, document here : Discharge Discharge Date: Oct 19, 2017 Discharge Diagnosis: (1) INTERMITTENT EXPLOSIVE DISORDER Diagnosis: Principal ICD Code: F63.81 - INTERMITTENT EXPLOSIVE DISORDER Status: Acute (2) Intellectual disability Diagnosis: Secondary ICD Code: F79 - Unspecified intellectual disabilities Pt Condition on Discharge: Stable Discharge Disposition: Discharge Home Discharge Instructions Diet Instructions: As Tolerated, No Restrictions Activities you can perform: Weight Bearing as [place] Scheduled Appointment: as per counselor's notes New Orders: CBC WITH DIFF - 1 Week New Medications: [Chlorpromazine] () 100 MG TAB 200 MG PO HS for Mental Health for 30 Days, 0 Refills [Chlorpromazine] () 100 MG TAB 150 MG PO DAILY@0900,1500 for Mental Health for 30 Days, 0 Refills Continued Medications: Divalproex ER (Depakote ER) 500 Mg Duane 1500 MG PO DAILY for Control Seizures, #60 TAB 0 Refills Lamotrigine (Lamictal) 100 Mg Tab 100 MG PO DAILY for health, #30 TAB 0 Refills Levothyroxine (Synthroid) 50 Mcg Tab 50 MCG PO DAILY@0600 for health, #30 TAB 0 Refills Discharge Time <= 30 minutes Mental Status Examination Appearance: Appropriate Consciousness: Alert Orientation: Person, Place Motor Activity: Other (No hand tremor, no cog-wheeling, no dystonia, no dyskinesia, no other motor abnormal motor movements noted) Speech: Unremarkable Language: Other (limited vocabulary) Fund of Knowledge: Inadequate Attention and Concentration: Inadequate Memory: Unremarkable Mood: Other (calm) Affect: Other (remains quite childlike) Thought Process & Associations: Circumstantial Thought Content: Appropriate (for patient's degree of intellectual disability) Hallucination Type: None (Denies AVH) Delusion Type: None Suicidal Ideation: No Suicidal Plan: No Suicidal Intention: No Homicidal Ideation: No Homicidal Plan: No Homicidal Intention: No Insight: Poor (chronic condition) Judgment: Poor (chronic condition) Discharge/Advance Care Plan Health Problems: (1) INTERMITTENT EXPLOSIVE DISORDER (2) Intellectual disability Goals to promote your health * To prevent worsening of your condition and complications * To maintain your health at the optimal level Directions to meet your goals Take your medications as prescribed Follow your dietary instruction Follow activity as directed Keep your appointments as scheduled Take your immunizations and boosters as scheduled If your symptoms worsen call your PCP, if no PCP go to Urgent Care Center or Emergency Room For 21/02 questions related to your inpatient stay or results of tests pending at discharge, please contact Dr. Naif Gold at Smoking is Dangerous to Your Health. Avoid second hand smoking Problem Qualifiers (1) Psychosis: Qualified Codes: F29 - Unspecified psychosis not due to a substance or known physiological condition Naif Gold MD Oct 19, 2017 08:11
[2017-10-19] MEDS ORDERED: Chlorpromazine PO ×2 (08:13)
[2017-10-19] MEDS: DIVALPROEX SODIUM E.R. 500 MG TAB PO SCH (10:01)
[2017-10-19] MEDS: lamoTRIgine 100 MG TAB PO SCH (10:01)
== END 2017-10-19 13:10 | disposition home or self-care (01) | DRG 883 ==
LOC: NEPD 01:21 → NEDA 08:27 → H4EA 11:45
PROVIDERS: ADMIT Psychiatry & Neurology Psychiatry; ATTEND Psychiatry & Neurology Psychiatry
DX: F63.81 Intermittent explosive disorder (principal); F79 Unspecified intellectual disabilities; S92.242D Displaced fracture of medial cuneiform of left foot, subsequent encounter for fracture with routine healing; X58.XXXD Exposure to other specified factors, subsequent encounter
CPT/HCPCS: 73630; 80053; 80061; 80164; 80307; 83036; 84443; 84703; 85025; 99285; L2114

== ENCOUNTER 2018-01-08 04:02 | Emergency (ER) | payer MEDICARE, OTHER ==
[~2018-01-08] VITALS: Ht 162.6 cm; Wt 75.0 kg
[~2018-01-08 04:02] MED LIST changes: -CARI1CAP2 PO; -CLON1 PO; +Chlorpromazine PO; -IBUP-232 PO; -IBUP1TAB7 PO; -NORC5TAB PO; -PROP20TA3 PO; -TRAZ300T2 PO
[2018-01-08 04:12] VITALS: BP 138/59; PULSE 95; RESP 18; TEMP 98.1; O2SAT 95
--- NOTE | 2018-01-08 04:43 | PD ---
HPI Chief Complaint: Medical Clearance Time Seen by Provider: 04:24 Travel History International Travel<30 days: No Contact w/Intl Traveler<30days: No Traveled to known affect area: No History of Present Illness HPI Patient is a 32 year old female who was sent to the ER by her mother for psychiatric evaluation. As per EVAC, patient has the mental capacity of a 5- year-old, reports that patient has been making statements at home about hurting other people. Patient currently denies SI or HI, patient's mother apparently would like patient's medications reevaluated. PFSH Past Medical History Hx Anticoagulant Therapy: No Arthritis: Yes Autoimmune Disease: No Bipolar Disorder: Yes Anxiety: Yes Depression: No Heart Rhythm Problems: No Cancer: No Cardiovascular Problems: No High Cholesterol: No Chemotherapy: No Cerebrovascular Accident: No Developmental Delay: Yes Diabetes: No Diminished Hearing: No Endocrine: No Genitourinary: No Hypertension: No Immune Disorder: No Implanted Vascular Access Dvce: No Kidney Stones: No Musculoskeletal: No Neurologic: Yes (ANOXIC ENCEPHALOPATHY INFANT) Psychiatric: Yes Reproductive: No Respiratory: No Immunizations Current: No (uto) Radiation Therapy: No Renal Failure: No Schizophrenia: Yes Seizures: Yes Sickle Cell Disease: No Sleep Apnea: No Thyroid Disease: Yes Influenza Vaccination: Yes ?: Not Past Surgical History AICD: No Insulin Pump: No Joint Replacement: No Pacemaker: No Social History Alcohol Use: No Tobacco Use: No Substance Use: No Allergies-Medications (Allergen,Severity, Reaction): Coded Allergies: Sulfa (Sulfonamide Antibiotics) (Verified Allergy, Intermediate, HIVES, 05/18) Reported Meds & Prescriptions Reported Meds & Active Scripts Active [Chlorpromazine] 100 MG Tab 200 Mg PO HS 30 Days Walker/Adult/Folding (Device) 1 Mis Mis Ea .XX DIRECTED Synthroid (Levothyroxine Sodium) 50 Mcg Tab 50 Mcg PO DAILY@0600 Lamictal (Lamotrigine) 100 Mg Tab 100 Mg PO DAILY Reported Klonopin (Clonazepam) 2 Mg Tab 2 Mg PO TID Meloxicam 15 Mg Tab 15 Mg PO DAILY Chlorpromazine (Chlorpromazine HCl) 200 Mg Tab 250 Mg PO TID PRN Depakote ER (Divalproex Sodium) 500 Mg Duane 1,500 Mg PO DAILY Review of Systems General / Constitutional: No: Fever Eyes: No: Visual changes HENT: No: Headaches Cardiovascular: No: Chest Pain or Discomfort Respiratory: No: Shortness of Breath Gastrointestinal: No: Abdominal Pain Genitourinary: No: Dysuria Musculoskeletal: No: Pain Skin: No Rash Neurologic: No: Weakness Psychiatric: No: Depression Endocrine: No: Polydipsia Hematologic/Lymphatic: No: Easy Bruising Physical Exam Narrative GENERAL: NAD, Nontoxic SKIN: Focused skin assessment warm/dry. HEAD: Atraumatic. Normocephalic. EYES: Pupils equal and round. No scleral icterus. No injection or drainage. ENT: No nasal bleeding or discharge. Mucous membranes pink and moist. NECK: Trachea midline. No JVD. CARDIOVASCULAR: Regular rate and rhythm. No murmur appreciated. RESPIRATORY: No accessory muscle use. Clear to auscultation. Breath sounds equal bilaterally. GASTROINTESTINAL: Abdomen soft, non-tender, nondistended. Hepatic and splenic margins not palpable. MUSCULOSKELETAL: No obvious deformities. No clubbing. No cyanosis. No edema. NEUROLOGICAL: Awake and alert. No obvious cranial nerve deficits. Motor grossly within normal limits. Normal speech. PSYCHIATRIC: Flat mood and affect; insight and judgment normal. Data Data Last Documented VS Vital Signs Date Time Temp Pulse Resp B/P (MAP) Pulse Ox O2 Delivery O2 Flow Rate FiO2 01/08/18 04:21 97 16 01/08/18 04:12 98.1 138/59 (85) 95 Orders Orders Complete Blood Count With Diff (01/08/18 04:30) Comprehensive Metabolic Panel (01/08/18 04:30) Thyroid Stimulating Hormone (01/08/18 04:30) Ed Urine Pregnancytest Poc (01/08/18 04:30) Valproic Acid (Depakene) (01/08/18 04:30) Psych Screen (01/08/18 04:30) Drug Screen, Random Urine (01/08/18 04:30) Labs Laboratory Tests Test 01/08/18 04:41 White Blood Count 6.0 TH/MM3 Red Blood Count 3.67 MIL/MM3 Hemoglobin 10.5 GM/DL Hematocrit 32.0 % Mean Corpuscular Volume 87.1 FL Mean Corpuscular Hemoglobin 28.6 PG Mean Corpuscular Hemoglobin Concent 32.9 % Red Cell Distribution Width 15.6 % Platelet Count 268 TH/MM3 Mean Platelet Volume 6.6 FL Neutrophils (%) (Auto) 56.6 % Lymphocytes (%) (Auto) 25.7 % Monocytes (%) (Auto) 14.3 % Eosinophils (%) (Auto) 3.1 % Basophils (%) (Auto) 0.3 % Neutrophils # (Auto) 3.4 TH/MM3 Lymphocytes # (Auto) 1.5 TH/MM3 Monocytes # (Auto) 0.9 TH/MM3 Eosinophils # (Auto) 0.2 TH/MM3 Basophils # (Auto) 0.0 TH/MM3 CBC Comment DIFF FINAL Differential Comment Blood Urea Nitrogen 8 MG/DL Creatinine 0.98 MG/DL Random Glucose 87 MG/DL Total Protein 6.9 GM/DL Albumin 3.3 GM/DL Calcium Level 8.9 MG/DL Alkaline Phosphatase 77 U/L Aspartate Amino Transf (AST/SGOT) 11 U/L Alanine Aminotransferase (ALT/SGPT) 21 U/L Total Bilirubin 0.2 MG/DL Sodium Level 140 MEQ/L Potassium Level 4.2 MEQ/L Chloride Level 103 MEQ/L Carbon Dioxide Level 27.4 MEQ/L Anion Gap 10 MEQ/L Estimat Glomerular Filtration Rate 65 ML/MIN Thyroid Stimulating Hormone 3rd Gen 4.430 uIU/ML Valproic Acid (Depakene) Level 67 MCG/ML MDM Medical Decision Making Medical Screen Exam Complete: Yes Emergency Medical Condition: Yes Medical Record Reviewed: Yes Interpretation(s) Vital Signs Date Time Temp Pulse Resp B/P (MAP) Pulse Ox O2 Delivery O2 Flow Rate FiO2 01/08/18 04:21 97 16 01/08/18 04:12 98.1 95 18 138/59 (85) 95 Differential Diagnosis developmental delay, MR psychosis Narrative Course Psychiatric screening labs ordered. Laboratory Tests Test 01/08/18 04:41 White Blood Count 6.0 TH/MM3 (4.0-11.0) Red Blood Count 3.67 MIL/MM3 (4.00-5.30) Hemoglobin 10.5 GM/DL (11.6-15.3) Hematocrit 32.0 % (35.0-46.0) Mean Corpuscular Volume 87.1 FL (80.0-100.0) Mean Corpuscular Hemoglobin 28.6 PG (27.0-34.0) Mean Corpuscular Hemoglobin Concent 32.9 % (32.0-36.0) Red Cell Distribution Width 15.6 % (11.6-17.2) Platelet Count 268 TH/MM3 (150-450) Mean Platelet Volume 6.6 FL (7.0-11.0) Neutrophils (%) (Auto) 56.6 % (16.0-70.0) Lymphocytes (%) (Auto) 25.7 % (9.0-44.0) Monocytes (%) (Auto) 14.3 % (0.0-8.0) Eosinophils (%) (Auto) 3.1 % (0.0-4.0) Basophils (%) (Auto) 0.3 % (0.0-2.0) Neutrophils # (Auto) 3.4 TH/MM3 (1.8-7.7) Lymphocytes # (Auto) 1.5 TH/MM3 (1.0-4.8) Monocytes # (Auto) 0.9 TH/MM3 (0-0.9) Eosinophils # (Auto) 0.2 TH/MM3 (0-0.4) Basophils # (Auto) 0.0 TH/MM3 (0-0.2) CBC Comment DIFF FINAL Differential Comment Blood Urea Nitrogen 8 MG/DL (7-18) Creatinine 0.98 MG/DL (0.50-1.00) Random Glucose 87 MG/DL (74-106) Total Protein 6.9 GM/DL (6.4-8.2) Albumin 3.3 GM/DL (3.4-5.0) Calcium Level 8.9 MG/DL (8.5-10.1) Alkaline Phosphatase 77 U/L (45-117) Aspartate Amino Transf (AST/SGOT) 11 U/L (15-37) Alanine Aminotransferase (ALT/SGPT) 21 U/L (10-53) Total Bilirubin 0.2 MG/DL (0.2-1.0) Sodium Level 140 MEQ/L (136-145) Potassium Level 4.2 MEQ/L (3.5-5.1) Chloride Level 103 MEQ/L (98-107) Carbon Dioxide Level 27.4 MEQ/L (21.0-32.0) Anion Gap 10 MEQ/L (5-15) Estimat Glomerular Filtration Rate 65 ML/MIN (>89) Thyroid Stimulating Hormone 3rd Gen 4.430 uIU/ML (0.358-3.740) Valproic Acid (Depakene) Level 67 MCG/ML (50-100) Patient cleared for psychiatric screening. Layne Ace DO Jan 08, 2018 04:43
[2018-01-08 05:19] LABS: AUTOMATED NEUTROPHIL # 3.4 TH/MM3 (1.8-7.7); BASOPHIL % 0.3 % (0.0-2.0); EOSINOPHIL # 0.2 TH/MM3 (0-0.4); EOSINOPHIL % 3.1 % (0.0-4.0); HEMOGLOBIN 10.5 GM/DL (11.6-15.3); LYMPH % 25.7 % (9.0-44.0); LYMPHOCYTE # 1.5 TH/MM3 (1.0-4.8); MEAN CELL VOLUME 87.1 FL (80.0-100.0); MEAN CORPUSCULAR HEMOGLOBIN 28.6 PG (27.0-34.0); MEAN CORPUSCULAR HGB CONC 32.9 % (32.0-36.0); MEAN PLATELET VOLUME 6.6 FL (7.0-11.0); MONO % 14.3 % (0.0-8.0); MONOCYTE # 0.9 TH/MM3 (0-0.9); NEUT % 56.6 % (16.0-70.0); PLATELET COUNT 268 TH/MM3 (150-450); RED BLOOD COUNT 3.67 MIL/MM3 (4.00-5.30); RED CELL DISTRIBUTION WIDTH 15.6 % (11.6-17.2)
[2018-01-08] MEDS ORDERED: CHLO200T5 PO (05:28)
[2018-01-08] MEDS ORDERED: TEGR200T PO (05:33)
[2018-01-08] MEDS ORDERED: KLON2TAB PO (05:33)
[2018-01-08] MEDS ORDERED: MELO15TA20 PO (05:33)
[2018-01-08 05:36] LABS: ALBUMIN 3.3 GM/DL (3.4-5.0); AST (GOT) 11 U/L (15-37); BICARBONATE 27.4 MEQ/L (21.0-32.0); BLOOD UREA NITROGEN 8 MG/DL (7-18); CALCIUM 8.9 MG/DL (8.5-10.1); CHLORIDE 103 MEQ/L (98-107); CREATININE 0.98 MG/DL (0.50-1.00); GLOMERULAR FILTRATION RATE 65 ML/MIN (>89); GLUCOSE,RANDOM 87 MG/DL (74-106); SODIUM (NA) 140 MEQ/L (136-145)
[2018-01-08 05:37] LABS: ALT (GPT) 21 U/L (10-53)
[2018-01-08 05:46] LABS: ALKALINE PHOSPHATASE 77 U/L (45-117); TOTAL BILIRUBIN ADULT 0.2 MG/DL (0.2-1.0); TOTAL PROTEIN 6.9 GM/DL (6.4-8.2)
--- NOTE | 2018-01-08 07:24 | RADRPT ---
EXAM DATE: 01/08/2018 7:19 AM EDT AGE/SEX: 32 years / Female INDICATIONS: Confusion. CLINICAL DATA: This is the patient's initial encounter. Patient reports that signs and symptoms have been present for 1 day and indicates a pain score of 0/10. MEDICAL/SURGICAL HISTORY: . History of anoxic encephalopathy None. RADIATION DOSE: 56.35 CTDI (mGy) COMPARISON: [facility] [place], CT BRAIN W/O CONTRAST, 12/29/2014. . TECHNIQUE: CT of the head without contrast. Using automated exposure control and adjustment of the mA and/or kV according to patient size, radiation dose was kept as low as reasonably achievable to ob tain optimal diagnostic quality images. FINDINGS: Cerebrum: The ventricles are normal for age. No evidence of midline shift, mass lesion, hemorrhage or acute infarction. No extraaxial fluid collections are seen. Posterior Fossa: The cerebellum and brainstem are intact. The 4th ventricle is midline. The cerebe llopontine angle is unremarkable. Extracranial: The visualized portion of the orbits is intact. Skull: The calvaria is intact. No evidence of skull fracture. CONCLUSION: 1. Negative CT Head non contrast. Electronically signed by: Vicente Infante MD 01/08/2018 7:22 AM EDT
--- NOTE | 2018-01-08 08:39 | PD ---
History of Present Illness Chief Complaint: Medical Clearance Time Seen by Provider: 07:30 Travel History International Travel<30 Days: No Contact w/Intl Traveler<30days: No Known affected area: No History of Present Illness: Patient is 32 y/o [place] [facility] was discharged on 12/15/17 an inpatient stay. At that time patient was on Vraylar which the mother felt was worsening her condition. Patient has a history of intermittent explosive disorder and intellectual disability. Per the record patient is currently on Depakote 1,500 mg daily; Lamictal 100 mg daily; Chlorpromazine 250 mg tid. The mother states that the patient was on Klonopin 2 mg tid but cannot recall who prescribed this medication. She is currently under the care of [facility]. Chart reviewed and discussed with nurse. Patient is in a hospital gown with a bright pink baseball cap in Room E 60 in the Emergency Department. She is well kept and well groomed. She is childlike and easily distracted. She was able to give me her mother Taina's phone number [phone]. She was also able to tell the day and year. Motor and gait are normal. Insight and judgement fair. Attention and concentration intermittent. No abnormal thoughts. Thought association is very simple. She is euthymic and mood is consistent with affect. Collateral : I attempt to call the mother Taina, , unable to reach her. During her hospital stay the nurses report that patient and been cooperative and easily re-directed. Dx: Intellectual disability PFSH Past Medical History Hx Anticoagulant Therapy: No Arthritis: Yes Autoimmune Disease: No Bipolar Disorder: Yes Anxiety: Yes Depression: No Heart Rhythm Problems: No Cancer: No Cardiovascular Problems: No High Cholesterol: No Chemotherapy: No Cerebrovascular Accident: No Developmental Delay: Yes Diabetes: No Diminished Hearing: No Endocrine: No Genitourinary: No Hypertension: No Immune Disorder: No Implanted Vascular Access Dvce: No Kidney Stones: No Musculoskeletal: No Neurologic: Yes (ANOXIC ENCEPHALOPATHY ) Psychiatric: Yes Reproductive: No Respiratory: No Immunizations Current: No (uto) Radiation Therapy: No Renal Failure: No Schizophrenia: Yes Seizures: Yes Sickle Cell Disease: No Sleep Apnea: No Thyroid Disease: Yes Influenza Vaccination: Yes ?: Not Past Surgical History AICD: No Insulin Pump: No Joint Replacement: No Pacemaker: No Psychiatric History Psychiatric History Long history of admissions. Last admitted on 12/15/17 . Intellectual disability and intermittent explosive disorder. Followed by [facility]. Hx Psychiatric Treatment: Patient with multiple admissions to [facility]=both pediatric and adult. History of Inpatient Treatment: Yes Social History Hx Alcohol Use: No Hx Tobacco Use: No Hx Substance Use: No Substance Use Type: Benzos (Valium,Xanax) Hx of Substance Use Treatment: No Allergies-Medications (Allergen,Severity, Reaction): Coded Allergies: Sulfa (Sulfonamide Antibiotics) (Verified Allergy, Intermediate, HIVES, 05/18) Reported Meds & Prescriptions Reported Meds & Active Scripts Active [Chlorpromazine] 100 MG Tab 200 Mg PO HS 30 Days Walker/Adult/Folding (Device) 1 Mis Mis Ea .XX DIRECTED Synthroid (Levothyroxine Sodium) 50 Mcg Tab 50 Mcg PO DAILY@0600 Lamictal (Lamotrigine) 100 Mg Tab 100 Mg PO DAILY Reported Klonopin (Clonazepam) 2 Mg Tab 2 Mg PO TID Meloxicam 15 Mg Tab 15 Mg PO DAILY Chlorpromazine (Chlorpromazine HCl) 200 Mg Tab 250 Mg PO TID PRN Depakote ER (Divalproex Sodium) 500 Mg Duane 1,500 Mg PO DAILY Mental Status Examination Appearance: Appropriate Consciousness: Asleep Orientation: Person Motor Activity: Normal gait Speech: Unremarkable Language: Adequate Fund of Knowledge: Poor Attention and Concentration: Easily Distracted Memory: Impaired Mood: Appropriate Affect: Appropriate Thought Process & Associations: Other (intellectual disability ) Thought Content: Appropriate Hallucination Type: None Delusion Type: None Suicidal Ideation: No Suicidal Plan: No Suicidal Intention: No Homicidal Ideation: No Homicidal Plan: No Homicidal Intention: No Insight: Adequate Judgment: Adequate MDM Medical Decision Making Medical Record Reviewed: Yes Assessment/Plan Patient is cooperative and easily re-directed while in the Emergency Department. Here on a voluntary basis for medication management. Patient currently on Depakote, Lamictal and Thorazine. Mother is asking for Klonopin. Patient is followed by [facility] that does not prescribe controlled substances. Will recommend that the mother follow up with [facility] to review her medication list to see if their is another medication to addresses her intermittent anxiety. Discharge patient with follow up at [facility]. Orders Orders Complete Blood Count With Diff (01/08/18 04:30) Comprehensive Metabolic Panel (01/08/18 04:30) Thyroid Stimulating Hormone (01/08/18 04:30) Ed Urine Pregnancytest Poc (01/08/18 04:30) Valproic Acid (Depakene) (01/08/18 04:30) Psych Screen (01/08/18 04:30) Drug Screen, Random Urine (01/08/18 04:30) Ct Brain W/O Iv Contrast(Rout) (01/08/18 06:59) Results Vital Signs Date Time Temp Pulse Resp B/P (MAP) Pulse Ox O2 Delivery O2 Flow Rate FiO2 01/08/18 04:21 97 16 01/08/18 04:12 98.1 95 18 138/59 (85) 95 Laboratory Tests Test 01/08/18 04:41 White Blood Count 6.0 Red Blood Count 3.67 Hemoglobin 10.5 Hematocrit 32.0 Mean Corpuscular Volume 87.1 Mean Corpuscular Hemoglobin 28.6 Mean Corpuscular Hemoglobin Concent 32.9 Red Cell Distribution Width 15.6 Platelet Count 268 Mean Platelet Volume 6.6 Neutrophils (%) (Auto) 56.6 Lymphocytes (%) (Auto) 25.7 Monocytes (%) (Auto) 14.3 Eosinophils (%) (Auto) 3.1 Basophils (%) (Auto) 0.3 Neutrophils # (Auto) 3.4 Lymphocytes # (Auto) 1.5 Monocytes # (Auto) 0.9 Eosinophils # (Auto) 0.2 Basophils # (Auto) 0.0 CBC Comment DIFF FINAL Differential Comment Blood Urea Nitrogen 8 Creatinine 0.98 Random Glucose 87 Total Protein 6.9 Albumin 3.3 Calcium Level 8.9 Alkaline Phosphatase 77 Aspartate Amino Transf (AST/SGOT) 11 Alanine Aminotransferase (ALT/SGPT) 21 Total Bilirubin 0.2 Sodium Level 140 Potassium Level 4.2 Chloride Level 103 Carbon Dioxide Level 27.4 Anion Gap 10 Estimat Glomerular Filtration Rate 65 Thyroid Stimulating Hormone 3rd Gen 4.430 Valproic Acid (Depakene) Level 67 Diagnosis Primary Impression: Intellectual disability Additional Impression: Intermittent explosive disorder Disposition: 01 DISCHARGE HOME Condition: Stable Problem Qualifiers Mary Renee Jan 08, 2018 08:39
--- NOTE | 2018-01-08 13:24 | PD ---
Physical Exam Narrative GENERAL: SKIN: Warm and dry. HEAD: Atraumatic. Normocephalic. EYES: Pupils equal and round. No scleral icterus. No injection or drainage. ENT: No nasal bleeding or discharge. Mucous membranes pink and moist. NECK: Trachea midline. No JVD. CARDIOVASCULAR: Regular rate and rhythm. RESPIRATORY: No accessory muscle use. Clear to auscultation. Breath sounds equal bilaterally. GASTROINTESTINAL: Abdomen soft, non-tender, nondistended. MUSCULOSKELETAL: Extremities without clubbing, cyanosis, or edema. No obvious deformities. NEUROLOGICAL: Awake and alert. No obvious cranial nerve deficits. Motor grossly within normal limits. Five out of 5 muscle strength in the arms and legs. Normal speech. PATIENT HAS NOTICEABLE MR TYPE OF ACTIVITY AND MANNERISMS PSYCHIATRIC: Appropriate mood and affect; insight and judgment normal. Data Data Last Documented VS Vital Signs Date Time Temp Pulse Resp B/P (MAP) Pulse Ox O2 Delivery O2 Flow Rate FiO2 01/08/18 04:21 97 16 01/08/18 04:12 98.1 138/59 (85) 95 Orders Orders Complete Blood Count With Diff (01/08/18 04:30) Comprehensive Metabolic Panel (01/08/18 04:30) Thyroid Stimulating Hormone (01/08/18 04:30) Ed Urine Pregnancytest Poc (01/08/18 04:30) Valproic Acid (Depakene) (01/08/18 04:30) Psych Screen (01/08/18 04:30) Drug Screen, Random Urine (01/08/18 04:30) Ct Brain W/O Iv Contrast(Rout) (01/08/18 06:59) Diet Regular Basic (01/08/18 Breakfast) Ed Discharge Order (01/08/18 13:19) Labs Laboratory Tests Test 01/08/18 04:41 White Blood Count 6.0 TH/MM3 Red Blood Count 3.67 MIL/MM3 Hemoglobin 10.5 GM/DL Hematocrit 32.0 % Mean Corpuscular Volume 87.1 FL Mean Corpuscular Hemoglobin 28.6 PG Mean Corpuscular Hemoglobin Concent 32.9 % Red Cell Distribution Width 15.6 % Platelet Count 268 TH/MM3 Mean Platelet Volume 6.6 FL Neutrophils (%) (Auto) 56.6 % Lymphocytes (%) (Auto) 25.7 % Monocytes (%) (Auto) 14.3 % Eosinophils (%) (Auto) 3.1 % Basophils (%) (Auto) 0.3 % Neutrophils # (Auto) 3.4 TH/MM3 Lymphocytes # (Auto) 1.5 TH/MM3 Monocytes # (Auto) 0.9 TH/MM3 Eosinophils # (Auto) 0.2 TH/MM3 Basophils # (Auto) 0.0 TH/MM3 CBC Comment DIFF FINAL Differential Comment Blood Urea Nitrogen 8 MG/DL Creatinine 0.98 MG/DL Random Glucose 87 MG/DL Total Protein 6.9 GM/DL Albumin 3.3 GM/DL Calcium Level 8.9 MG/DL Alkaline Phosphatase 77 U/L Aspartate Amino Transf (AST/SGOT) 11 U/L Alanine Aminotransferase (ALT/SGPT) 21 U/L Total Bilirubin 0.2 MG/DL Sodium Level 140 MEQ/L Potassium Level 4.2 MEQ/L Chloride Level 103 MEQ/L Carbon Dioxide Level 27.4 MEQ/L Anion Gap 10 MEQ/L Estimat Glomerular Filtration Rate 65 ML/MIN Thyroid Stimulating Hormone 3rd Gen 4.430 uIU/ML Valproic Acid (Depakene) Level 67 MCG/ML MDM Medical Record Reviewed: Yes Supervised Visit with NOBLE: No Narrative Course Lewis act was lifted, mother is at bedside and both are in agreement that they will go home however should they have any concerns they are urged to return back Diagnosis Primary Impression: Intellectual disability Additional Impression: Intermittent explosive disorder Patient Instructions: General Instructions Disposition: 01 DISCHARGE HOME Condition: Stable Edwin Otto MD Jan 08, 2018 13:24
== END 2018-01-08 13:34 | disposition home or self-care (01) ==
LOC: NEPE 04:02
DX: F79 Unspecified intellectual disabilities (principal); F63.81 Intermittent explosive disorder; F20.9 Schizophrenia, unspecified; F31.9 Bipolar disorder, unspecified; Z88.2 Allergy status to sulfonamides
CPT/HCPCS: 70450; 80053; 80164; 84443; 84703; 85025; 99284

== ENCOUNTER 2018-02-26 15:44 | Observation (INO) ==
[2018-02-26 17:27] LABS: Baso % (Auto) 0.4 % (0.0-2.0); Eos # (Auto) 0.1 th/mm3 (0.0-0.4); Hematocrit 30.8 % (35.0-46.0); Hemoglobin 10.1 gm/dL (11.6-15.3); Lymph # (Auto) 1.3 th/mm3 (1.0-4.8); Lymph % (Auto) 18.4 % (9.0-44.0); Mean Corpuscular HGB Conc 32.9 % (32.0-36.0); Mean Corpuscular Hemoglobin 28.3 pg (27.0-34.0); Mean Corpuscular Volume 86.1 fL (80.0-100.0); Mean Platelet Volume 6.5 fL (7.0-11.0); Mono # (Auto) 0.8 th/mm3 (0.0-0.9); Mono % (Auto) 11.8 % (0.0-8.0); Neut # (Auto) 4.8 th/mm3 (1.8-7.7); Neut % (Auto) 67.4 % (16.0-70.0); Platelet Count 291 th/mm3 (150-450); Red Blood Count 3.58 mil/mm3 (4.00-5.30); Red Cell Distribution Width 16.2 % (11.6-17.2)
--- NOTE | 2018-02-26 17:41 | CT ---
EXAM DATE: 02/26/2018 5:36 PM EDT AGE/SEX: 32 years / Female INDICATIONS: Altered mental status; slurred speech and lethargy following a change in medication. CLINICAL DATA: This is the patient's initial encounter. Patient reports that signs and symptoms have been present for 1 week and indicates a pain score of 0/10. MEDICAL/SURGICAL HISTORY: . Seizures, traumatic brain injury None. RADIATION DOSE: 56.35 CTDI (mGy) COMPARISON: [facility] [place], CT BRAIN W/O CONTRAST, 01/08/2018. . TECHNIQUE: CT of the head without contrast. Using automated exposure control and adjustment of the mA and/or kV according to patient size, radiation dose was kept as low as reasonably achievable to ob tain optimal diagnostic quality images. DICOM format image data is available electronically for revi ew and comparison. FINDINGS: There is no evidence for intracranial hemorrhage, mass effect, mass lesions, edema, or extra-axial fl uid collections. The visualized bony structures appear intact. The ventricles are normal size for t he patient's age. There are no signs of acute infarction for technique. CONCLUSION: Unremarkable study. . Electronically signed by: Nicolás Mederos MD 02/26/2018 5:40 PM EDT
[2018-02-26 17:48] LABS: Albumin 3.4 g/dL (3.4-5.0); Anion Gap 7 meq/L (5-15); Aspartate Aminotransferase 10 U/L (15-37); Blood Urea Nitrogen 17 mg/dL (7-18); Calcium 8.6 mg/dL (8.5-10.1); Carbon Dioxide 26.6 meq/L (21.0-32.0); Chloride 103 meq/L (98-107); Glomerular Filtration Rate 81 mL/min (>89); Glucose,Random 80 mg/dL (74-106); Sodium 137 meq/L (136-145)
[2018-02-26 17:50] LABS: Alanine Aminotransferase 15 U/L (10-53)
[2018-02-26 17:59] LABS: Alkaline Phosphatase 80 U/L (45-117); Total Protein 7.3 g/dL (6.4-8.2)
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
[2018-02-26] MEDS ORDERED: Haloperidol Inj 5 MG/ML Ampul IM ONE (22:33)
[2018-02-27] MEDS ORDERED: Haloperidol Inj 5 MG/ML Ampul IM ONE (01:28)
[2018-02-27 05:45] LABS: Amphetamine Screen,Urine Neg (Neg); Bacteria,Urine Moderate /hpf; Barbiturate Screen,Urine Neg (Neg); Bilirubin,Urine Negative (Negative); Cannabinoid Screen,Urine Neg (Neg); Clarity,Urine Cloudy (Clear); Cocaine Screen,Urine Neg (Neg); Color,Urine Yellow (Yellw/Straw); Glucose,Urine (UA) Negative (Negative); Leukocyte Esterase,Urine Moderate (Negative); Mucus,Urine Few /lpf (Occasional); Nitrite,Urine Negative (Negative); Opiate Screen,Urine Neg (Neg); Specific Gravity,Urine 1.023 (1.002-1.035); Squamous Epithelial Cell,Urine 20 /hpf (0-5)
[2018-02-27] MEDS ORDERED: Nitrofurantoin Monohydrate-Macrocrystal 100 MG Capsule PO ONE (11:04)
[2018-02-27] MEDS ORDERED: Bisacodyl 10 MG Supp RECTAL PRN (16:22)
[2018-02-27] MEDS ORDERED: Acetaminophen 325 MG Tablet PO PRN (16:22)
[2018-02-27] MEDS ORDERED: clonazePAM 1 MG Tablet PO PRN (16:25)
--- NOTE | 2018-02-27 18:38 | P.HPIM ---
History of Present Illness Service: [facility] Primary Care Physician: UNKNOWN Chief Complaint: Change in behavior, psychiatric evaluation History of Present Illness: Patient is a 32-year-old female with past medical history of anoxic TBI, autism , seizure disorder, schizophrenia, bipolar who came into the hospital with her mother for psychiatric evaluation. As per patient's mother who was at the bedside, patient is acting different and behaving different since her medication was changed last week. Patient was started on Invega. On this admission, patient was also reported by nurses to be max assist 2, difficulty with transfers and ambulation. Found to have urinary tract infection, UA positive leukoesterase, positive urine bacteria, positive urine WBC. U tox negative, serum alcohol less than 3. No leukocytosis. Positive anemia 10.1/ 33.8 stable compared to prior labs. CT of the head showed unremarkable study. Mother states patient is weak, slurred speech. Patient is awake and alert, speech is slurred. Poor historian. - Diagnosis (1) UTI (urinary tract infection) (2) Drug side effects Review of Systems unobtainable due to mental condition Ears, Nose, Mouth, and Throat: Denies nosebleed, Denies mouth lesions Cardiovascular: Denies chest pain Respiratory: Denies chest congestion Gastrointestinal: Denies abdominal pain Musculoskeletal: Denies body aches PMFSH - History History Provided By: Patient, Chief Of Police / EMT - Medical History Medical History: Medical History (Last Reviewed 02/26/18 @ 18:33 by ANOOP Lewis) Schizophrenia Seizures TBI (traumatic brain injury) - Surgical History Surgical History: Surgical History (Last Updated 02/27/18 @ 18:27 by ANOOP Magana) History of esophagogastroduodenoscopy (EGD) - Family History Family History: Family History (Last Updated 02/27/18 @ 18:28 by ANOOP Magana) Mother Chronic back pain - Tobacco History Second Hand Smoke Exposure: No Smoking Status: Never smoker - Alcohol History How Often Do You Have a Drink Containing Alcohol: Never - Substance Use History Substance History: No History of Abuse - Travel History Recent Travel in the [place] Within the Last 8 Weeks: No Recent Travel Out of the Country Within the Last 8 Weeks: No - Immunization History Tetanus Immunization: Unsure Hx Influenza Vaccine This Season: No Medications and Allergies Active Medications: Active Medications Acetaminophen (Tylenol) 650 mg PO Q4H PRN PRN Reason: Temp > 100.4 Al Hydroxide/Mg Hydroxide (Milk Of Magnesia Liq) 30 ml PO Q12H PRN PRN Reason: Mild Constipation Bisacodyl (Dulcolax Supp) 10 mg RECTAL DAILY PRN PRN Reason: SEVERE CONSITIPATION Clonazepam (Klonopin) 1 mg PO TID PRN PRN Reason: ANXIETY Divalproex Sodium (Depakote Dr) 1,500 mg PO HS [facility] Ceftriaxone Sodium 1,000 mg/ (Sodium Chloride) 100 mls @ 200 mls/hr IV.SIG Q24H [facility] Last Admin: 02/27/18 18:15 Dose: 200 mls/hr Lactulose (Lactulose Liq) 30 ml PO DAILY PRN PRN Reason: SEVERE CONSITIPATION Lamotrigine (Lamictal) 100 mg PO BID [facility] Levothyroxine Sodium (Synthroid) 50 mcg PO DAILY@0600 [facility] Ondansetron HCl (Zofran Odt) 4 mg PO Q6H PRN PRN Reason: NAUSEA OR VOMITING Senna/Docusate Sodium (Nely-Colace) 1 tab PO BID [facility] Sennosides (Senokot) 17.2 mg PO Q12H PRN PRN Reason: Moderate Constipation Sodium Chloride (Ns Flush) 2 ml IV.FLUSH UNSCH PRN PRN Reason: FLUSH AFTER USING IV ACCESS Sodium Chloride (Ns Flush) 2 ml IV.FLUSH BID [facility] Allergies Allergy/AdvReac Type Severity Reaction Status Date / Time Sulfa (Sulfonamide Allergy Intermediate HIVES Verified 02/26/18 16:04 Antibiotics) iodine Allergy Anaphylaxis Verified 02/26/18 16:09 Home Medications Medication Instructions Recorded Confirmed Type clonazepam [Klonopin] 1 mg PO TID 02/27/18 02/27/18 History divalproex [Depakote] 1,500 mg PO HS 02/27/18 02/27/18 History lamotrigine [Lamictal] 100 mg PO BID 02/27/18 02/27/18 History levothyroxine [Synthroid] 50 mcg PO DAILY 02/27/18 02/27/18 History quetiapine [Seroquel] PO HS 02/27/18 History trazodone PO HS 02/27/18 History Exam Vital signs: Vital Signs 02/26/18 19:00 02/26/18 23:00 02/27/18 03:00 Pulse Rate 87 79 78 Respiratory Rate 16 15 16 Blood Pressure 134/74 127/68 124/68 Pulse Oximetry 98 99 02/27/18 10:25 Pulse Rate 88 Respiratory Rate 16 Blood Pressure 143/80 H Pulse Oximetry 98 Intake & Output 02/26/18 02/27/18 02/27/18 18:59 06:59 18:59 Output Total 320 / 320 Balance -320 / -320 Weight 109.316 kg Output: Urine 320 / 320 Narrative: GENERAL: This is a well-nourished patient with mental delay, in no apparent distress. SKIN: Warm and dry. HEENT: Normocephalic. Pupils equal round and reactive. Nose without bleeding. Airway patent. NECK: Trachea midline. Supple. CARDIOVASCULAR: Regular rate and rhythm without murmurs, gallops, or rubs. RESPIRATORY: Clear to auscultation. Breath sounds equal bilaterally. No wheezes , rales, or rhonchi. GASTROINTESTINAL: Abdomen soft, non-tender, nondistended. Bowel Sounds normoactive x4. MUSCULOSKELETAL: Extremities without clubbing, cyanosis, or edema. NEUROLOGICAL: Awake and alert. Oriented to self and mom. Moves all extremities. Slurred speech. Results - Labs CBC & Chem 7: 02/26/18 17:15 02/26/18 17:15 Labs: Urine 02/27/18 Range/Units 05:15 Urine Color Yellow (Yellw/Straw) Urine Clarity Cloudy H (Clear) Urine pH 7.0 (5.0-8.5) Ur Specific [place] 1.023 (1.002-1.035) Urine Protein 30 H (Neg-Trace) mg/dL Urine Glucose (UA) Negative (Negative) mg/dL Caprini VTE Risk Assessment Caprini VTE Risk Assessment: No/Low Risk (score <= 1) Caprini Risk Assessment Model: Point Value = 1 Point Value = 2 Point Value = 3 Point Value = 5 Age 41-60 Minor surgery BMI > 25 kg/m2 Swollen legs Varicose veins or History of unexplained or recurrent spontaneous Oral contraceptives or hormone replacement Sepsis (< 1 month) Serious lung disease, including pneumonia (< 1 month) Abnormal pulmonary function Acute myocardial infarction Congestive heart failure (< 1 month) History of inflammatory bowel disease Medical patient at bed rest Age 61-74 Arthroscopic surgery Major open surgery (> 45 min) Laparoscopic surgery (> 45 min) Malignancy Confined to bed (> 72 hours) Immobilizing plaster cast Central venous access Age >= 75 History of VTE Family history of VTE Factor V Leiden Prothrombin [id number] Lupus anticoagulant Anticardiolipin antibodies Elevated serum homocysteine Heparin-induced thrombocytopenia Other congenital or acquired thrombophilia Stroke (< 1 month) Elective arthroplasty Hip, pelvis, or leg fracture Acute spinal cord injury (< 1 month) Prophylaxis Regimen: Total Risk Factor Score Risk Level Prophylaxis Regimen 0-1 Low Early ambulation 2 Moderate Order ONE of the following: *Sequential Compression Device (SCD) *Heparin 5000 units SQ BID 3-4 Higher Order ONE of the following medications: *Heparin 5000 units SQ TID *Enoxaparin/Lovenox 40 mg SQ daily (WT < 150 kg, CrCl > 30 mL/min) *Enoxaparin/Lovenox 30 mg SQ daily (WT < 150 kg, CrCl > 10-29 mL/min) *Enoxaparin/Lovenox 30 mg SQ BID (WT < 150 kg, CrCl > 30 mL/min) AND/OR *Sequential Compression Device (SCD) 5 or more Highest Order ONE of the following medications: *Heparin 5000 units SQ TID (Preferred with Epidurals) *Enoxaparin/Lovenox 40 mg SQ daily (WT < 150 kg, CrCl > 30 mL/min) *Enoxaparin/Lovenox 30 mg SQ daily (WT < 150 kg, CrCl > 10-29 mL/min) *Enoxaparin/Lovenox 30 mg SQ BID (WT < 150 kg, CrCl > 30 mL/min) AND *Sequential Compression Device (SCD) Assessment and Plan - Assessment (1) UTI (urinary tract infection) Code(s): N39.0 - Urinary tract infection, site not specified Status: Acute (2) Drug side effects Code(s): T88.7XXA - Unspecified adverse effect of drug or medicament, initial encounter Status: Acute - Plan Patient is a 32-year-old female with past medical history of anoxic TBI, autism , seizure disorder, schizophrenia, bipolar who came into the hospital with her mother for psychiatric evaluation. Psychiatric evaluation for behavioral symptoms -Was started on Invega in the outpatient. Hold for now -Psychiatry to evaluate. Urinary tract infection, acute -This could be contributory to change in behavior and mental status -UA abnormal, follow cultures patient was given ceftriaxone in the ED. Will continue IV antibiotics Seizure disorder -Check Dilantin level -Continue Depakote -Seizure precaution Generalized weakness, slurred speech -CT of the head negative -PT/ST evaluate and treat DVT prop SCDs Code Status: Full code Discussed Condition With: Patient, nurse Discharge Planning: Plan to DC home in clinically improved. (1) UTI (urinary tract infection) Qualifiers: Urinary tract infection type: site unspecified Hematuria presence: without hematuria Qualified Code(s): N39.0 - Urinary tract infection, site not specified
[2018-02-27] MEDS: Senna/Docusate Sodium 8.6/50 MG Tablet PO SCH (22:00)
[2018-02-27] MEDS: lamoTRIgine 100 MG Tablet PO SCH (22:00)
[2018-02-27] MEDS: Divalproex 500 MG DR Tablet PO SCH (23:00)
[2018-02-28 06:25] LABS: Baso % (Auto) 0.4 % (0.0-2.0); Eos # (Auto) 0.1 th/mm3 (0.0-0.4); Eos % (Auto) 1.5 % (0.0-4.0); Hematocrit 31.1 % (35.0-46.0); Hemoglobin 10.1 gm/dL (11.6-15.3); Lymph # (Auto) 1.7 th/mm3 (1.0-4.8); Lymph % (Auto) 20.3 % (9.0-44.0); Mean Corpuscular HGB Conc 32.4 % (32.0-36.0); Mean Corpuscular Hemoglobin 27.5 pg (27.0-34.0); Mean Corpuscular Volume 84.8 fL (80.0-100.0); Mean Platelet Volume 6.6 fL (7.0-11.0); Mono # (Auto) 1.1 th/mm3 (0.0-0.9); Mono % (Auto) 12.8 % (0.0-8.0); Neut # (Auto) 5.5 th/mm3 (1.8-7.7); Platelet Count 297 th/mm3 (150-450); Red Blood Count 3.67 mil/mm3 (4.00-5.30); Red Cell Distribution Width 16.5 % (11.6-17.2); White Blood Count 8.5 th/mm3 (4.0-11.0)
[2018-02-28 07:06] LABS: Alanine Aminotransferase 16 U/L (10-53); Albumin 3.2 g/dL (3.4-5.0); Alkaline Phosphatase 80 U/L (45-117); Anion Gap 10 meq/L (5-15); Aspartate Aminotransferase 22 U/L (15-37); Blood Urea Nitrogen 13 mg/dL (7-18); Calcium 8.8 mg/dL (8.5-10.1); Carbon Dioxide 24.8 meq/L (21.0-32.0); Chloride 103 meq/L (98-107); Glomerular Filtration Rate Greater Than 89 mL/min (>89); Glucose,Random 74 mg/dL (74-106); Sodium 138 meq/L (136-145); Total Protein 7.1 g/dL (6.4-8.2)
[2018-02-28 07:11] LABS: Potassium 3.8 meq/L (3.5-5.1)
[2018-02-28] MEDS: Levothyroxine 50 MCG Tablet PO SCH (07:58)
[2018-02-28] MEDS: Senna/Docusate Sodium 8.6/50 MG Tablet PO SCH ×2 (09:48→20:12)
[2018-02-28] MEDS: lamoTRIgine 100 MG Tablet PO SCH ×2 (09:48→20:12)
--- NOTE | 2018-02-28 13:45 | P.PN ---
Subjective Interval history: Follow up for behavioral changes, probable UTI. Patient is currently resting well in bed. No acute concerns. She does not talk much but denies any acute concerns. No fever or chills. Physical Exam Vital signs: Vital Signs 02/27/18 20:00 02/28/18 00:00 02/28/18 03:50 Temperature 98.7 F 98.5 F 98.8 F Pulse Rate 102 H 90 87 Respiratory Rate 18 17 17 Blood Pressure 128/58 L 117/56 L 133/66 Pulse Oximetry 98 96 98 02/28/18 08:00 02/28/18 12:00 Temperature 98.5 F 97.8 F Pulse Rate 100 H 93 H Respiratory Rate 18 20 Blood Pressure 110/57 L 111/56 L Pulse Oximetry 94 L 93 L Intake & Output 02/27/18 02/28/18 02/28/18 18:59 06:59 18:59 Intake Total 120 / 120 Output Total 320 / 320 Balance -320 / -320 120 / 120 Weight 114.4 kg Intake: Oral 120 / 120 Output: Urine 320 / 320 Other: # Voids 1 Weight On Admission 114.4 kg Narrative: GENERAL: Alert, NAD. Does not talk much during this interview. SKIN: Warm and dry. HEAD: Normocephalic. EYES: No scleral icterus. No injection or drainage. NECK: Supple, trachea midline. No JVD or lymphadenopathy. CARDIOVASCULAR: Regular rate and rhythm without murmurs, gallops, or rubs. RESPIRATORY: Breath sounds equal bilaterally. No accessory muscle use. GASTROINTESTINAL: Abdomen soft, non-tender, nondistended. MUSCULOSKELETAL: No cyanosis, or edema. BACK: Nontender without obvious deformity. No CVA tenderness. Results - Labs CBC & Chem 7: 02/28/18 04:50 02/28/18 04:50 Laboratory Results - last 24 hr 02/27/18 02/28/18 02/28/18 21:54 04:50 04:50 WBC 8.5 RBC 3.67 L Hgb 10.1 L Hct 31.1 L MCV 84.8 MCH 27.5 MCHC 32.4 RDW 16.5 Plt Count 297 MPV 6.6 L Prelim Diff (Auto) Slide review pending Neut % (Auto) 65.0 Lymph % (Auto) 20.3 [place] % (Auto) 12.8 H Eos % (Auto) 1.5 Baso % (Auto) 0.4 Neut # (Auto) 5.5 Lymph # (Auto) 1.7 [place] # (Auto) 1.1 H Eos # (Auto) 0.1 Baso # (Auto) 0.0 WBC Differential . Diff Scan Auto diff confirmed Differential Comment . Sodium 138 Potassium 3.8 Chloride 103 Carbon Dioxide 24.8 Anion Gap 10 BUN 13 Creatinine 0.72 Estimated GFR Greater than 89 Random Glucose 74 Calcium 8.8 Total Bilirubin 0.2 AST 22 ALT 16 Alkaline Phosphatase 80 Total Protein 7.1 Albumin 3.2 L Valproic Acid 42 L Microbiology 02/27/18 05:15 Clean Catch Urine Urine Culture - Final 50-100,000 cfu/mL mixed prudencio (probable contaminants ) - Imaging Head CT 02/26/18 16:35 CONCLUSION: Unremarkable study. . Assessment and Plan - Assessment (1) UTI (urinary tract infection) Code(s): N39.0 - Urinary tract infection, site not specified Status: Acute (2) Drug side effects Code(s): T88.7XXA - Unspecified adverse effect of drug or medicament, initial encounter Status: Acute - Plan Patient is a 32-year-old female with past medical history of anoxic TBI, autism , seizure disorder, schizophrenia, bipolar who came into the hospital with her mother for psychiatric evaluation. Psychiatric evaluation for behavioral symptoms -Was started on Invega in the outpatient. Hold for now -Psychiatry evaluated patient today, will wait for recommendations. Urinary tract infection, acute -This could be contributory to change in behavior and mental status -UA abnormal, follow cultures patient was given ceftriaxone in the ED. Will continue IV Ceftriaxone 1g Qday. Seizure disorder -Continue Depakote, Lamictal -Seizure precaution Hypothyroidism - Cont Levothyroxine 50mcg Qday. Generalized weakness, slurred speech -CT of the head negative -Speech recommends regular diet, thin liquids. PT recommends Rehab vs. Home health. Full code. SCDs. (1) UTI (urinary tract infection) Qualifiers: Urinary tract infection type: site unspecified Hematuria presence: without hematuria Qualified Code(s): N39.0 - Urinary tract infection, site not specified
--- NOTE | 2018-02-28 16:02 | P.CONPSY ---
Provisional Diagnosis Admission Date: February 27, 2018 16:47 [place] I.: schizophrenia, delirium History of Present Illness Service: ER Primary Care Provider: UNKNOWN Family Provider: Deejay García Chief Complaint: Change in behavior, psychiatric evaluation History of Present Illness: the patient is a 32-year-old woman, domiciled with her mother, with psychiatric history of schizophrenia, autism, well known by the service, multiple psychiatric hospitalizations, the patient is on Depakote 1500 mg at bedtime, Lamictal 100 mg twice daily, clonazepam 1 mg 3 times daily, Invega Sustenna, with past medical history of anoxic TBI, seizure disorder, who came into the hospital with her mother for psychiatric evaluation. As per patient's mother who was at the bedside, patient is acting different and behaving different since her medication was changed last week. Patient was started on Invega. On this admission, patient was also reported by nurses to be max assist 2, difficulty with transfers and ambulation. Found to have urinary tract infection, UA positive leukoesterase, positive urine bacteria, positive urine WBC. U tox negative, serum alcohol less than 3. No leukocytosis. Positive anemia 10.1/33.8 stable compared to prior labs. CT of the head showed unremarkable study. Mother states patient is weak, slurred speech. Patient is awake and alert, speech is slurred. The patient is quite lethargic, unable to provide any meaningful information for the psychiatric assessment. She does denies suicidal enemas ideation, denies visual and auditory hallucinations at the moment. [facility] - History History Provided By: Medical Record - Medical History Medical History: Medical History (Last Reviewed 02/28/18 @ 08:41 by Mayda Mary) Schizophrenia Seizures TBI (traumatic brain injury) - Surgical History Surgical History: Surgical History (Last Reviewed 02/28/18 @ 08:41 by Mayda Mary) History of esophagogastroduodenoscopy (EGD) - Family History Family History: Family History (Last Updated 02/27/18 @ 18:28 by ANOOP Magana) Mother Chronic back pain - Tobacco History Second Hand Smoke Exposure: No Smoking Status: Never smoker - Alcohol History How Often Do You Have a Drink Containing Alcohol: Never - Substance Use History Substance History: No History of Abuse - Travel History Recent Travel in the [facility] Within the Last 8 Weeks: No Recent Travel Out of the Country Within the Last 8 Weeks: No - Immunization History Tetanus Immunization: Unsure Hx Influenza Vaccine This Season: No Medications and Allergies Active Medications: Active Medications Acetaminophen (Tylenol) 650 mg PO Q4H PRN PRN Reason: Temp > 100.4 Al Hydroxide/Mg Hydroxide (Milk Of Magnesia Liq) 30 ml PO Q12H PRN PRN Reason: Mild Constipation Bisacodyl (Dulcolax Supp) 10 mg RECTAL DAILY PRN PRN Reason: SEVERE CONSITIPATION Clonazepam (Klonopin) 1 mg PO TID PRN PRN Reason: ANXIETY Divalproex Sodium (Depakote Dr) 1,500 mg PO HS [facility] Last Admin: 02/27/18 23:00 Dose: 1,500 mg Ceftriaxone Sodium 1,000 mg/ (Sodium Chloride) 100 mls @ 200 mls/hr IV.SIG Q24H [facility] Last Admin: 02/27/18 18:15 Dose: 200 mls/hr Lactulose (Lactulose Liq) 30 ml PO DAILY PRN PRN Reason: SEVERE CONSITIPATION Lamotrigine (Lamictal) 100 mg PO BID [facility] Last Admin: 02/28/18 09:48 Dose: 100 mg Levothyroxine Sodium (Synthroid) 50 mcg PO DAILY@0600 [facility] Last Admin: 02/28/18 07:58 Dose: 50 mcg Ondansetron HCl (Zofran Odt) 4 mg PO Q6H PRN PRN Reason: NAUSEA OR VOMITING Senna/Docusate Sodium (Nely-Colace) 1 tab PO BID [facility] Last Admin: 02/28/18 09:48 Dose: 1 tab Sennosides (Senokot) 17.2 mg PO Q12H PRN PRN Reason: Moderate Constipation Sodium Chloride (Ns Flush) 2 ml IV.FLUSH UNSCH PRN PRN Reason: FLUSH AFTER USING IV ACCESS Sodium Chloride (Ns Flush) 2 ml IV.FLUSH BID [facility] Last Admin: 02/28/18 09:48 Dose: 2 ml Allergies Allergy/AdvReac Type Severity Reaction Status Date / Time Sulfa (Sulfonamide Allergy Intermediate HIVES Verified 02/26/18 16:04 Antibiotics) iodine Allergy Anaphylaxis Verified 02/26/18 16:09 Home Medications Medication Instructions Recorded Confirmed Type clonazepam [Klonopin] 1 mg PO TID 02/27/18 02/27/18 History divalproex [Depakote] 1,500 mg PO HS 02/27/18 02/27/18 History lamotrigine [Lamictal] 100 mg PO BID 02/27/18 02/27/18 History levothyroxine [Synthroid] 50 mcg PO DAILY 02/27/18 02/27/18 History quetiapine [Seroquel] PO HS 02/27/18 History trazodone PO HS 02/27/18 History Exam Vital signs: Vital Signs 02/27/18 20:00 02/28/18 00:00 02/28/18 03:50 Temperature 98.7 F 98.5 F 98.8 F Pulse Rate 102 H 90 87 Respiratory Rate 18 17 17 Blood Pressure 128/58 L 117/56 L 133/66 Pulse Oximetry 98 96 98 02/28/18 08:00 02/28/18 12:00 Temperature 98.5 F 97.8 F Pulse Rate 100 H 93 H Respiratory Rate 18 20 Blood Pressure 110/57 L 111/56 L Pulse Oximetry 94 L 93 L Intake & Output 02/27/18 02/28/18 02/28/18 18:59 06:59 18:59 Intake Total 120 / 120 Output Total 320 / 320 Balance -320 / -320 120 / 120 Weight 114.4 kg Intake: Oral 120 / 120 Output: Urine 320 / 320 Other: # Voids 1 Weight On Admission 114.4 kg Mental Status Examination Appearance: Appropriate Consciousness: Alert Orientation: Person Speech: Incoherent Language: Adequate Fund of Knowledge: Adequate Attention and Concentration: Easily distracted Suicidal Ideation: No Suicidal Plan: No Suicidal Intention: No Homicidal Ideation: No Homicidal Plan: No Homicidal Intention: No Insight: Fair Judgment: Impulsive Assessment and Plan - Assessment (1) Schizophrenia Code(s): F20.9 - Schizophrenia, unspecified Status: Acute - Plan Plan: Estimated LOS: [] days On my psychiatric evaluation I find a patient that is poorly cooperative, quite lethargic, with slurred speech. Mother reports that the patient developed this presentation after switching Thorazine to Invega sustena. However, the patient also presents with a significant UTI that can account for a hypo-active hypoalert delirium. The patient is on multiple medications that can potentially increase sedation. I will discontinue the clonazepam 1 mg 3 times daily. I will consult neurology to address a potential neurological causes of delirium and if Depakote could be also decreased given the level of lethargic. I do not think that the Invega Sustenna is Resposable for this presentation since this medication is not very sedated. There is no chance that Karey Lewis act will be inhibiting the metabolism of any of the drugs taken by the patient since Invega is metabolized by kidneys and Depakote, Lamictal, clonazepam metabolized by liver. She does not meet criteria for involuntary psychiatric admission. I will follow up. Justification for Continued Inpatient Stay: There is no criteria for involuntary psychiatric admission at the moment
[2018-02-28] MEDS: Divalproex 500 MG DR Tablet PO SCH (20:12)
[2018-03-01] MEDS: Levothyroxine 50 MCG Tablet PO SCH (09:15)
[2018-03-01] MEDS: lamoTRIgine 100 MG Tablet PO SCH (09:15)
[2018-03-01] MEDS: Senna/Docusate Sodium 8.6/50 MG Tablet PO SCH (09:15)
--- NOTE | 2018-03-01 10:03 | P.PN ---
Subjective Interval history: Follow up for behavioral changes, probable UTI. Patient is currently more alert but some of her speech is not easy to understand. She however denies any chest pain, shortness of breath, fever or chills. She is tolerating diet well. She is going to the bathroom. Physical Exam Vital signs: Vital Signs 02/28/18 12:00 02/28/18 16:00 02/28/18 20:00 Temperature 97.8 F 98.8 F Pulse Rate 93 H 84 78 Respiratory Rate 20 20 16 Blood Pressure 111/56 L 129/74 113/80 Pulse Oximetry 93 L 94 L 94 L 03/01/18 04:00 03/01/18 08:00 Temperature 98.2 F 98.4 F Pulse Rate 75 90 Respiratory Rate 16 20 Blood Pressure 109/74 112/72 Pulse Oximetry 99 95 Intake & Output 02/28/18 03/01/18 03/01/18 18:59 06:59 18:59 Intake Total 100 / 100 100 / 100 Balance 100 / 100 100 / 100 Intake: IV 100 / 100 100 / 100 Rocephin Inj 1,000 MG In NS Inj 100 / 100 100 / 100 100 ML @ 200 mls/hr IV.SIG Q24H [facility] Rx#:[id number] Other: # Voids 1 Narrative: GENERAL: More alert, NAD. SKIN: Warm and dry. HEAD: Normocephalic. EYES: No scleral icterus. No injection or drainage. NECK: Supple, trachea midline. No JVD or lymphadenopathy. CARDIOVASCULAR: Regular rate and rhythm without murmurs, gallops, or rubs. RESPIRATORY: Breath sounds equal bilaterally. No accessory muscle use. GASTROINTESTINAL: Abdomen soft, non-tender, nondistended. MUSCULOSKELETAL: No cyanosis, or edema. BACK: Nontender without obvious deformity. No CVA tenderness. Results - Labs CBC & Chem 7: 02/28/18 04:50 02/28/18 04:50 Microbiology 02/27/18 05:15 Clean Catch Urine Urine Culture - Final 50-100,000 cfu/mL mixed prudencio (probable contaminants ) Assessment and Plan - Assessment (1) UTI (urinary tract infection) Code(s): N39.0 - Urinary tract infection, site not specified Status: Acute (2) Drug side effects Code(s): T88.7XXA - Unspecified adverse effect of drug or medicament, initial encounter Status: Acute - Plan Patient is a 32-year-old female with past medical history of anoxic TBI, autism , seizure disorder, schizophrenia, bipolar who came into the hospital with her mother for psychiatric evaluation. Psychiatric evaluation for behavioral symptoms -Was started on Invega in the outpatient. Psychiatry does not feel that Invega is causing any problem. -Will d/c Clonazepam. Urinary tract infection, acute -Received Ceftriaxone. Cx grows mixed prudencio. Will d/c abx. Seizure disorder -Continue Depakote, Lamictal -Seizure precaution Hypothyroidism - Cont Levothyroxine 50mcg Qday. Generalized weakness, slurred speech -CT of the head negative -Speech recommends regular diet, thin liquids. PT recommends Rehab vs. Home health. Full code. SCDs. Likely discharge home today. (1) UTI (urinary tract infection) Qualifiers: Urinary tract infection type: site unspecified Hematuria presence: without hematuria Qualified Code(s): N39.0 - Urinary tract infection, site not specified
[2018-03-01 12:41] VITALS: TEMP 97.6
--- NOTE | 2018-03-01 15:45 | XR ---
EXAM DATE: 03/01/2018 3:42 PM EDT AGE/SEX: 32 years / Female INDICATIONS: Cough. CLINICAL DATA: This is the patient's initial encounter. Patient reports that signs and symptoms have been present for 1 day and indicates a pain score of 0/10. MEDICAL/SURGICAL HISTORY: . Seizures, traumatic brain injury. None. COMPARISON: [facility], CHEST PA & LAT, 06/12/2016. . FINDINGS: A single AP view of the chest demonstrates the lungs to be symmetrically aerated without evidence of mass, infiltrate or effusion. The cardiomediastinal contours are unremarkable. Osseous structures a re intact. CONCLUSION: Negative examination. Electronically signed by: Vicente Infante MD 03/01/2018 3:43 PM EDT
[2018-03-01 17:12] VITALS: BP 114/64; PULSE 90; RESP 16; O2SAT 96
== END 2018-03-01 18:45 | disposition home or self-care (01) ==
LOC: NEDA 15:44 → NEPD 15:44 → NEPFCDU 15:44
PROVIDERS: ADMIT Hospitalist; ATTEND Hospitalist